=== PATIENT | female | born 1980 | race Caucasian/White ===

== ENCOUNTER 2016-09-14 14:20 | Emergency (ER) | payer OTHER ==
[~2016-09-14] VITALS: Ht 162.6 cm; Wt 93.9 kg
[~2016-09-14 14:20] MED LIST: /VITACHEW PO; ACET50TA PO; ANUS2.5C2 PR; BUSP10TA GT; BUSP10TA78 PO; COLA50CA3 PO; IBUP600T26 PO; MOM30SS PO
[2016-09-14] MEDS ORDERED: XYZA5TAB2 PO (14:36)
[2016-09-14] MEDS ORDERED: LEVA12INH INH (14:36)
[2016-09-14] MEDS ORDERED: MULTCAP11 PO (14:36)
[2016-09-14] MEDS ORDERED: IPRAINH INH (14:36)
[2016-09-14] MEDS ORDERED: ALBU83IN INH (14:36)
[2016-09-14] MEDS ORDERED: NS 1,000 ML IV ONE (14:45)
[2016-09-14] MEDS ORDERED: ONDANSETRON 4MG/2ML VIAL (J2405) IV ONE (15:00)
[2016-09-14 15:39] LABS: BASO % 0.3 % (0.0-1.0); EOS # 0.1 K/mm3 (0.0-0.50); EOS % 0.6 % (0.0-3.0); LARGE UNSTAINED CELL # 0.1 K/mm3 (0.0-0.4); LARGE UNSTAINED CELL % 1.1 % (0.0-4.0); LYMPH # 1.2 K/mm3 (1.5-4.5); LYMPH % 10.6 % (24.0-44.0); MEAN CORPUSCULAR HEMOGLOBIN 29.4 pg (27.0-33.0); MEAN CORPUSCULAR HGB CONC 33.2 g/dl (32.0-36.5); MEAN CORPUSCULAR VOLUME 88.5 fl (80.0-96.0); MONO # 0.5 K/mm3 (0.0-0.8); MONO % 4.3 % (0.0-5.0); NEUTROPHILS # 8.8 K/mm3 (1.8-7.7); NEUTROPHILS % 83.2 % (36.0-66.0); PLATELET COUNT, AUTOMATED 310 k/mm3 (150-450); RED CELL DISTRIBUTION WIDTH 12.6 % (11.5-14.5); WHITE BLOOD COUNT 10.6 K/mm3 (4.0-10.0)
[2016-09-14 16:10] LABS: ANION GAP 15 MEQ/L (8-16); BLOOD UREA NITROGEN 16 MG/DL (7-18); CARBON DIOXIDE LEVEL 16 MEQ/L (21-32); CHLORIDE LEVEL 106 MEQ/L (98-107); CREATININE FOR GFR 0.91 MG/DL (0.55-1.02); GLOMERULAR FILTRATION RATE > 60.0 (>60); GLUCOSE, FASTING 65 MG/DL (70-105); POTASSIUM SERUM 4.2 MEQ/L (3.5-5.1); SODIUM LEVEL 137 MEQ/L (136-145)
[2016-09-14] MEDS ORDERED: ZOFR4TAB3 PO (17:06)
[2016-09-14] MEDS ORDERED: DEXTROSE 50% 50 ML VIAL IV ONE (17:30)
[2016-09-14 17:38] VITALS: BP 114/62
--- NOTE | 2016-09-15 20:56 | ECGEPIP ---
Stationary ECG Study [facility] - ED Test Date: 2016-09-14 Pat Name: GUILLE GAYLE Department: Room: - Gender: F Diffusion Operator: carmine : 1980 Requested By: COLLEEN Ferrer Order Number: [id number] Reading MD: Lynnette Tejada Measurements Intervals [place] Rate: 101 P: 29 [place]: 142 QRS: 4 QRSD: 104 T: 20 QT: 343 QTc: 446 Interpretive Statements SINUS TACHYCARDIA VOLTAGE CRITERIA FOR LVH NONSPECIFIC T-WAVE ABNORMALITY NO PRIOR FOR COMPARISON Electronically Signed On 09-15-2016 20:56:25 EDT by Lynnette Tejada
== END 2016-09-14 17:43 | disposition home or self-care (01) ==
LOC: M ED 15:23
DX: E16.2 Hypoglycemia, unspecified (principal); E86.0 Dehydration; Z98.84 Bariatric surgery status; R94.31 Abnormal electrocardiogram [ECG] [EKG]; J45.909 Unspecified asthma, uncomplicated; F41.9 Anxiety disorder, unspecified; Z79.899 Other long term (current) drug therapy; Z79.01 Long term (current) use of anticoagulants
CPT/HCPCS: 80048; 84443; 85025; 93005; 93041; 94760; 96374; 99285; J2405

== ENCOUNTER 2016-09-17 08:17 | Emergency (ER) | payer OTHER ==
[~2016-09-17] VITALS: Ht 162.6 cm; Wt 95.3 kg
[~2016-09-17 08:17] MED LIST changes: +ALBU83IN INH; +IPRAINH INH; +LEVA12INH INH; +MULTCAP11 PO; +XYZA5TAB2 PO; +ZOFR4TAB3 PO
[2016-09-17] MEDS ORDERED: BACL10TA2 PO (08:40)
[2016-09-17] MEDS ORDERED: ALBU17IN INH (08:40)
[2016-09-17] MEDS ORDERED: KETO10TAB PO (08:40)
[2016-09-17] MEDS ORDERED: OMEP40CA2 PO (08:40)
[2016-09-17] MEDS ORDERED: NS 1,000 ML IV ONE (09:00)
[2016-09-17 09:33] LABS: BASO % 0.4 % (0.0-1.0); EOS # 0.4 K/mm3 (0.0-0.50); EOS % 4.1 % (0.0-3.0); LARGE UNSTAINED CELL # 0.2 K/mm3 (0.0-0.4); LARGE UNSTAINED CELL % 2.6 % (0.0-4.0); LYMPH # 1.5 K/mm3 (1.5-4.5); LYMPH % 15.4 % (24.0-44.0); MEAN CORPUSCULAR HEMOGLOBIN 29.5 pg (27.0-33.0); MEAN CORPUSCULAR HGB CONC 34.4 g/dl (32.0-36.5); MEAN CORPUSCULAR VOLUME 85.7 fl (80.0-96.0); MONO # 0.6 K/mm3 (0.0-0.8); MONO % 6.4 % (0.0-5.0); NEUTROPHILS % 71.1 % (36.0-66.0); PLATELET COUNT, AUTOMATED 315 k/mm3 (150-450); RED CELL DISTRIBUTION WIDTH 12.7 % (11.5-14.5); WHITE BLOOD COUNT 8.5 K/mm3 (4.0-10.0)
[2016-09-17 09:51] LABS: ALBUMIN 4.2 GM/DL (3.2-5.2); ALKALINE PHOSPHATASE 82 U/L (45-117); ALT/SGPT 22 U/L (12-78); ANION GAP 12 MEQ/L (8-16); AST/SGOT 13 U/L (15-37); BILIRUBIN,DIRECT 0.1 MG/DL (0.0-0.2); BILIRUBIN,TOTAL 0.9 MG/DL (0.2-1.0); BLOOD UREA NITROGEN 13 MG/DL (7-18); CALCIUM LEVEL 9.2 MG/DL (8.5-10.1); CARBON DIOXIDE LEVEL 25 MEQ/L (21-32); CHLORIDE LEVEL 104 MEQ/L (98-107); CREATININE FOR GFR 0.88 MG/DL (0.55-1.02); GLOMERULAR FILTRATION RATE > 60.0 (>60); GLUCOSE, FASTING 107 MG/DL (70-105); POTASSIUM SERUM 3.3 MEQ/L (3.5-5.1); SODIUM LEVEL 141 MEQ/L (136-145); TOTAL PROTEIN 8.4 GM/DL (6.4-8.2)
[2016-09-17] MEDS ORDERED: ONDANSETRON 4MG/2ML VIAL (J2405) IV ONE (14:45)
[2016-09-17 14:46] VITALS: BP 124/70
--- NOTE | 2016-09-17 16:45 | ECGEPIP ---
Stationary ECG Study [facility] - ED Test Date: 2016-09-17 Pat Name: GUILLE GAYLE Department: Room: - Gender: F Edge Sawyer: diaz : 1980 Requested By: COLLEEN Ferrer Order Number: [id number] Reading MD: Lynnette Tejada Measurements Intervals [place] Rate: 103 P: 36 [place]: 145 QRS: 7 QRSD: 89 T: 9 QT: 343 QTc: 449 Interpretive Statements SINUS TACHYCARDIA MINIMAL VOLTAGE CRITERIA FOR LVH, CONSIDER NORMAL VARIANT NONSPECIFIC T-WAVE ABNORMALITY ABNORMAL RHYTHM ECG SIMILAR 09/14/16 Electronically Signed On 09-17-2016 16:45:36 EDT by Lynnette Tejada
== END 2016-09-17 14:48 | disposition home or self-care (01) ==
LOC: M ED 09:17
DX: R11.0 Nausea (principal); R10.9 Unspecified abdominal pain; R19.7 Diarrhea, unspecified; J45.909 Unspecified asthma, uncomplicated; F41.9 Anxiety disorder, unspecified; G43.909 Migraine, unspecified, not intractable, without status migrainosus; Z98.84 Bariatric surgery status
CPT/HCPCS: 36415; 80048; 80076; 83690; 85025; 93005; 93041; 96374; 99284; J2405

== ENCOUNTER 2016-09-28 10:58 | Emergency (ER) | payer OTHER ==
[~2016-09-28 10:58] MED LIST changes: +ALBU17IN INH; +BACL10TA2 PO; +KETO10TAB PO; +OMEP40CA2 PO
[2016-09-28] MEDS ORDERED: ONDANSETRON 4MG/2ML VIAL (J2405) IV ONE (11:30)
[2016-09-28] MEDS ORDERED: MULTIVITAMIN -ADULT INJECTION 10 ML, THIAMINE INJection 100 MG, FOLIC ACID 1 MG in NS 1... IV ONE (11:30)
[2016-09-28 11:58] LABS: CONTROL LINE UCG INT CTR LINE PRESENT
[2016-09-28 12:18] LABS: BASO % 0.3 % (0.0-1.0); EOS # 0.5 K/mm3 (0.0-0.50); EOS % 5.5 % (0.0-3.0); LARGE UNSTAINED CELL # 0.2 K/mm3 (0.0-0.4); LARGE UNSTAINED CELL % 1.9 % (0.0-4.0); LYMPH % 21.1 % (24.0-44.0); MEAN CORPUSCULAR HEMOGLOBIN 29.1 pg (27.0-33.0); MEAN CORPUSCULAR HGB CONC 34.1 g/dl (32.0-36.5); MEAN CORPUSCULAR VOLUME 85.3 fl (80.0-96.0); MONO # 0.5 K/mm3 (0.0-0.8); NEUTROPHILS # 5.7 K/mm3 (1.8-7.7); NEUTROPHILS % 65.1 % (36.0-66.0); PLATELET COUNT, AUTOMATED 294 k/mm3 (150-450); RED CELL DISTRIBUTION WIDTH 12.8 % (11.5-14.5); WHITE BLOOD COUNT 8.8 K/mm3 (4.0-10.0)
[2016-09-28 12:41] LABS: ALBUMIN 4.2 GM/DL (3.2-5.2); ALKALINE PHOSPHATASE 88 U/L (45-117); ALT/SGPT 128 U/L (12-78); ANION GAP 14 MEQ/L (8-16); AST/SGOT 57 U/L (15-37); BILIRUBIN,DIRECT 0.4 MG/DL (0.0-0.2); BILIRUBIN,TOTAL 1.2 MG/DL (0.2-1.0); BLOOD UREA NITROGEN 9 MG/DL (7-18); CALCIUM LEVEL 8.8 MG/DL (8.5-10.1); CARBON DIOXIDE LEVEL 20 MEQ/L (21-32); CHLORIDE LEVEL 105 MEQ/L (98-107); CREATININE FOR GFR 0.86 MG/DL (0.55-1.02); GLOMERULAR FILTRATION RATE > 60.0 (>60); GLUCOSE, FASTING 86 MG/DL (70-105); POTASSIUM SERUM 3.2 MEQ/L (3.5-5.1); SODIUM LEVEL 139 MEQ/L (136-145); TOTAL PROTEIN 7.7 GM/DL (6.4-8.2)
[2016-09-28] MEDS ORDERED: METAL LOCK LOOP XX ONE (13:10)
--- NOTE | 2016-09-28 14:03 | REP ---
CT of the abdomen pelvis without IV or bowel contrast: Comparison is 10/06/2014. The visualized lung dill are unremarkable. The unenhanced hepatic parenchyma is homogeneous. There are surgical clips in the gallbladder fossa, unchanged. The pancreas is unremarkable. There are surgical clips in the upper abdomen suggestive of bariatric surgery, not present previously. The spleen, adrenals, kidneys and abdominal aorta are unremarkable. There is no bowel distension. Mesentery is unremarkable. Pelvis: There has been an appendectomy. The uterus and adnexa are unremarkable. There are a few scattered diverticula in the sigmoid colon without CT evidence of diverticulitis. There is no ascites or adenopathy. The bladder is incompletely distended and cannot be accurately assessed. Impression: No evidence of pancreatitis by CT. Cholecystectomy. Gastric surgery, possibly bariatric surgery. No bowel distension or obstruction. No ascites or adenopathy. Calcifications in the pelvis, likely phleboliths. Signed by Eligio Milan MD 09/28/2016 01:55 P
[2016-09-28 15:42] VITALS: BP 128/74
[2016-09-28] MEDS ORDERED: K-TA1TAB PO (15:43)
[2016-09-28] MEDS ORDERED: ONDANSETRON 4 MG ORAL DISINTEGRATING TAB (S0181) PO ONE (15:45)
== END 2016-09-28 15:52 | disposition home or self-care (01) ==
LOC: M ED 11:33
DX: E86.0 Dehydration (principal); R19.7 Diarrhea, unspecified; E87.6 Hypokalemia; R74.8 Abnormal levels of other serum enzymes; R93.5 Abnormal findings on diagnostic imaging of other abdominal regions, including retroperitoneum; J45.909 Unspecified asthma, uncomplicated; E66.9 Obesity, unspecified; Z79.899 Other long term (current) drug therapy; Z98.84 Bariatric surgery status; J30.81 Allergic rhinitis due to animal (cat) (dog) hair and dander; Z91.041 Radiographic dye allergy status; J30.89 Other allergic rhinitis; Z88.8 Allergy status to other drugs, medicaments and biological substances; Z91.048 Other nonmedicinal substance allergy status
CPT/HCPCS: 74176; 80048; 80076; 81001; 83690; 83735; 84703; 85025; 96374; 99282; J2405; J3411

== ENCOUNTER → 2016-10-07 | Outpatient (CLI) | payer OTHER ==
[~2016-10-07] MED LIST changes: +K-TA1TAB PO
[2016-10-07 11:22] LABS: AMYLASE 205 U/L (25-115); ANION GAP 11 MEQ/L (8-16); BLOOD UREA NITROGEN 6 MG/DL (7-18); CALCIUM LEVEL 8.7 MG/DL (8.5-10.1); CARBON DIOXIDE LEVEL 27 MEQ/L (21-32); CHLORIDE LEVEL 102 MEQ/L (98-107); CREATININE FOR GFR 0.68 MG/DL (0.55-1.02); GLOMERULAR FILTRATION RATE > 60.0 (>60); GLUCOSE, FASTING 87 MG/DL (70-105); POTASSIUM SERUM 3.3 MEQ/L (3.5-5.1); SODIUM LEVEL 140 MEQ/L (136-145)
== END ==
LOC: M LAB 10:28
DX: R79.89 Other specified abnormal findings of blood chemistry (principal)

== ENCOUNTER → 2016-10-08 | Outpatient (CLI) | payer OTHER ==
[2016-10-08 16:22] LABS: MEAN CORPUSCULAR HEMOGLOBIN 29.7 pg (27.0-33.0); MEAN CORPUSCULAR HGB CONC 34.2 g/dl (32.0-36.5); MEAN CORPUSCULAR VOLUME 86.7 fl (80.0-96.0); RED CELL DISTRIBUTION WIDTH 13.2 % (11.5-14.5); WHITE BLOOD COUNT 5.7 K/mm3 (4.0-10.0)
[2016-10-08 16:41] LABS: ALBUMIN 4.2 GM/DL (3.2-5.2); ALBUMIN/GLOBULIN RATIO 1.27 (1.00-1.93); ALKALINE PHOSPHATASE 79 U/L (45-117); ALT/SGPT 161 U/L (12-78); AMYLASE 186 U/L (25-115); ANION GAP 15 MEQ/L (8-16); AST/SGOT 86 U/L (15-37); BILIRUBIN,TOTAL 1.2 MG/DL (0.2-1.0); BLOOD UREA NITROGEN 7 MG/DL (7-18); CALCIUM LEVEL 8.9 MG/DL (8.5-10.1); CARBON DIOXIDE LEVEL 24 MEQ/L (21-32); CHLORIDE LEVEL 100 MEQ/L (98-107); CREATININE FOR GFR 0.78 MG/DL (0.55-1.02); GLOMERULAR FILTRATION RATE > 60.0 (>60); GLUCOSE, FASTING 96 MG/DL (70-105); POTASSIUM SERUM 3.1 MEQ/L (3.5-5.1); SODIUM LEVEL 139 MEQ/L (136-145); TOTAL PROTEIN 7.5 GM/DL (6.4-8.2)
== END ==
LOC: M LAB 15:28
PROVIDERS: ATTEND Physician Assistant
DX: E86.0 Dehydration (principal)

== ENCOUNTER → 2016-10-16 | Outpatient (CLI) | payer OTHER ==
[2016-10-16 20:14] LABS: MEAN CORPUSCULAR HEMOGLOBIN 30.2 pg (27.0-33.0); MEAN CORPUSCULAR HGB CONC 34.5 g/dl (32.0-36.5); MEAN CORPUSCULAR VOLUME 87.6 fl (80.0-96.0); RED CELL DISTRIBUTION WIDTH 13.2 % (11.5-14.5); WHITE BLOOD COUNT 6.2 K/mm3 (4.0-10.0)
[2016-10-16 20:28] LABS: ALBUMIN/GLOBULIN RATIO 1.25 (1.00-1.93); ALKALINE PHOSPHATASE 74 U/L (45-117); ALT/SGPT 70 U/L (12-78); ANION GAP 11 MEQ/L (8-16); AST/SGOT 26 U/L (15-37); BLOOD UREA NITROGEN 10 MG/DL (7-18); CALCIUM LEVEL 9.3 MG/DL (8.5-10.1); CARBON DIOXIDE LEVEL 30 MEQ/L (21-32); CHLORIDE LEVEL 99 MEQ/L (98-107); CREATININE FOR GFR 0.76 MG/DL (0.55-1.02); GLOMERULAR FILTRATION RATE > 60.0 (>60); GLUCOSE, FASTING 85 MG/DL (70-105); POTASSIUM SERUM 3.2 MEQ/L (3.5-5.1); SODIUM LEVEL 140 MEQ/L (136-145); TOTAL PROTEIN 7.2 GM/DL (6.4-8.2)
== END ==
LOC: M WUC 17:18
PROVIDERS: ATTEND Surgery
DX: K85.90 Acute pancreatitis without necrosis or infection, unspecified (principal)

== ENCOUNTER → 2016-11-05 | Outpatient (CLI) | payer OTHER ==
[2016-11-05 20:21] LABS: MEAN CORPUSCULAR HEMOGLOBIN 30.1 pg (27.0-33.0); MEAN CORPUSCULAR HGB CONC 34.5 g/dl (32.0-36.5); MEAN CORPUSCULAR VOLUME 87.3 fl (80.0-96.0); RED CELL DISTRIBUTION WIDTH 13.8 % (11.5-14.5); WHITE BLOOD COUNT 6.9 K/mm3 (4.0-10.0)
[2016-11-05 20:53] LABS: ALBUMIN/GLOBULIN RATIO 1.33 (1.00-1.93); ALKALINE PHOSPHATASE 65 U/L (45-117); ALT/SGPT 54 U/L (12-78); ANION GAP 14 MEQ/L (8-16); AST/SGOT 41 U/L (15-37); BILIRUBIN,TOTAL 1.5 MG/DL (0.2-1.0); BLOOD UREA NITROGEN 5 MG/DL (7-18); CARBON DIOXIDE LEVEL 24 MEQ/L (21-32); CHLORIDE LEVEL 100 MEQ/L (98-107); CREATININE FOR GFR 0.73 MG/DL (0.55-1.02); GLOMERULAR FILTRATION RATE > 60.0 (>60); GLUCOSE, FASTING 66 MG/DL (70-105); SODIUM LEVEL 138 MEQ/L (136-145)
== END ==
LOC: M LAB 19:46
PROVIDERS: ATTEND Surgery
DX: K85.90 Acute pancreatitis without necrosis or infection, unspecified (principal)

== ENCOUNTER → 2016-11-13 | Outpatient (CLI) | payer OTHER ==
[2016-11-13 16:21] LABS: MEAN CORPUSCULAR HEMOGLOBIN 29.6 pg (27.0-33.0); MEAN CORPUSCULAR HGB CONC 33.7 g/dl (32.0-36.5); MEAN CORPUSCULAR VOLUME 87.9 fl (80.0-96.0); RED CELL DISTRIBUTION WIDTH 13.9 % (11.5-14.5); WHITE BLOOD COUNT 6.9 K/mm3 (4.0-10.0)
[2016-11-13 16:31] LABS: ALBUMIN 3.9 GM/DL (3.2-5.2); ALBUMIN/GLOBULIN RATIO 1.44 (1.00-1.93); ALKALINE PHOSPHATASE 61 U/L (45-117); ALT/SGPT 32 U/L (12-78); AMYLASE 110 U/L (25-115); ANION GAP 7 MEQ/L (8-16); AST/SGOT 25 U/L (15-37); BILIRUBIN,TOTAL 0.9 MG/DL (0.2-1.0); BLOOD UREA NITROGEN 11 MG/DL (7-18); CALCIUM LEVEL 8.8 MG/DL (8.5-10.1); CARBON DIOXIDE LEVEL 32 MEQ/L (21-32); CHLORIDE LEVEL 102 MEQ/L (98-107); GLOMERULAR FILTRATION RATE > 60.0 (>60); GLUCOSE, FASTING 102 MG/DL (70-105); SODIUM LEVEL 141 MEQ/L (136-145); TOTAL PROTEIN 6.6 GM/DL (6.4-8.2)
[2016-11-13 16:59] LABS: POTASSIUM SERUM 2.9 MEQ/L (3.5-5.1)
== END ==
LOC: M LAB 15:33
PROVIDERS: ATTEND Physician Assistant
DX: E86.0 Dehydration (principal)

== ENCOUNTER → 2016-11-18 | Outpatient (CLI) | payer OTHER ==
[2016-11-18 17:59] LABS: POTASSIUM SERUM 3.5 MEQ/L (3.5-5.1)
== END ==
LOC: M WUC 11:55
PROVIDERS: ATTEND Physician Assistant
DX: E87.6 Hypokalemia (principal); R74.8 Abnormal levels of other serum enzymes

== ENCOUNTER → 2016-12-07 | Outpatient (REF) | payer OTHER ==
[2016-12-07 18:53] LABS: POTASSIUM SERUM 3.1 MEQ/L (3.5-5.1)
== END ==
LOC: M SFHCLERA 10:05
PROVIDERS: ATTEND Physician Assistant
DX: E87.6 Hypokalemia (principal); R74.8 Abnormal levels of other serum enzymes

== ENCOUNTER → 2016-12-24 | Outpatient (CLI) | payer OTHER ==
[2016-12-24 19:59] LABS: ALBUMIN 3.7 GM/DL (3.2-5.2); ALBUMIN/GLOBULIN RATIO 1.28 (1.00-1.93); ALKALINE PHOSPHATASE 51 U/L (45-117); ALT/SGPT 17 U/L (12-78); AMYLASE 45 U/L (25-115); ANION GAP 6 MEQ/L (8-16); AST/SGOT 7 U/L (15-37); BILIRUBIN,TOTAL 0.9 MG/DL (0.2-1.0); BLOOD UREA NITROGEN 7 MG/DL (7-18); CARBON DIOXIDE LEVEL 29 MEQ/L (21-32); CHLORIDE LEVEL 109 MEQ/L (98-107); CHOLESTEROL LEVEL 163 MG/DL (<200); CREATININE FOR GFR 0.62 MG/DL (0.55-1.02); GLOMERULAR FILTRATION RATE > 60.0 (>60); GLUCOSE, FASTING 97 MG/DL (70-105); SODIUM LEVEL 144 MEQ/L (136-145); TOTAL PROTEIN 6.6 GM/DL (6.4-8.2); TRIGLYCERIDES LEVEL 94 MG/DL (<150); VITAMIN B12 LEVEL 416 PG/ML (247-911)
[2016-12-24 20:04] LABS: MEAN CORPUSCULAR HEMOGLOBIN 30.9 pg (27.0-33.0); MEAN CORPUSCULAR VOLUME 90.9 fl (80.0-96.0); RED CELL DISTRIBUTION WIDTH 13.3 % (11.5-14.5); WHITE BLOOD COUNT 6.2 K/mm3 (4.0-10.0)
== END ==
LOC: M WUC 17:12
PROVIDERS: ATTEND Nurse Practitioner Women's Health
DX: E66.01 Morbid (severe) obesity due to excess calories (principal)

== ENCOUNTER → 2017-02-13 | Outpatient (REF) | payer OTHER | LOC: M SFHCLERA 17:26 | PROVIDERS: ATTEND Physician Assistant | DX: E87.6 Hypokalemia (principal) ==

== ENCOUNTER → 2017-02-17 | Outpatient (CLI) | payer OTHER | LOC: M LAB 12:00 | PROVIDERS: ATTEND Physician Assistant | DX: E87.6 Hypokalemia (principal) ==

== ENCOUNTER → 2017-03-19 | Outpatient (CLI) | payer OTHER ==
[2017-03-19 19:58] LABS: MEAN CORPUSCULAR HEMOGLOBIN 30.1 pg (27.0-33.0); MEAN CORPUSCULAR HGB CONC 33.1 g/dl (32.0-36.5); MEAN CORPUSCULAR VOLUME 90.7 fl (80.0-96.0); RED CELL DISTRIBUTION WIDTH 12.2 % (11.5-14.5); WHITE BLOOD COUNT 7.8 10^3/uL (4.0-10.0)
[2017-03-19 20:10] LABS: ANION GAP 7 MEQ/L (8-16); BLOOD UREA NITROGEN 9 MG/DL (7-18); CARBON DIOXIDE LEVEL 27 MEQ/L (21-32); CHLORIDE LEVEL 107 MEQ/L (98-107); GLOMERULAR FILTRATION RATE > 60.0 (>60); GLUCOSE, FASTING 76 MG/DL (70-105); POTASSIUM SERUM 3.7 MEQ/L (3.5-5.1); SODIUM LEVEL 141 MEQ/L (136-145)
[2017-03-19 20:11] LABS: ALBUMIN 3.8 GM/DL (3.2-5.2); ALBUMIN/GLOBULIN RATIO 1.41 (1.00-1.93); ALKALINE PHOSPHATASE 56 U/L (45-117); ALT/SGPT 13 U/L (12-78); AMYLASE 59 U/L (25-115); AST/SGOT 8 U/L (15-37); BILIRUBIN,TOTAL 0.8 MG/DL (0.2-1.0); CALCIUM LEVEL 9.1 MG/DL (8.5-10.1); CHOLESTEROL LEVEL 163 MG/DL (<200); TOTAL PROTEIN 6.5 GM/DL (6.4-8.2); TRIGLYCERIDES LEVEL 67 MG/DL (<150)
[2017-03-19 20:25] LABS: VITAMIN B12 LEVEL 481 PG/ML (247-911)
== END ==
LOC: M WUC 16:31
PROVIDERS: ATTEND Nurse Practitioner Women's Health
DX: E66.01 Morbid (severe) obesity due to excess calories (principal)

== ENCOUNTER → 2017-04-08 | Outpatient (REF) | payer OTHER | LOC: M LAB REF 17:25 | PROVIDERS: ATTEND Obstetrics & Gynecology | DX: Z01.419 Encounter for gynecological examination (general) (routine) without abnormal findings (principal); Z11.51 Encounter for screening for human papillomavirus (HPV) ==

== ENCOUNTER 2017-04-22 08:30 | Emergency (ER) | payer OTHER ==
[~2017-04-22] VITALS: Ht 162.6 cm; Wt 63.2 kg
[2017-04-22 09:41] LABS: BASO % 0.2 % (0.0-1.0); IMMATURE GRANULOCYTE % 0.2 % (0-0); LYMPH # 0.6 10^3/uL (1.5-4.5); LYMPH % 9.4 % (24.0-44.0); MEAN CORPUSCULAR HEMOGLOBIN 30.1 pg (27.0-33.0); MEAN CORPUSCULAR HGB CONC 33.7 g/dl (32.0-36.5); MEAN CORPUSCULAR VOLUME 89.3 fl (80.0-96.0); MONO # 0.2 10^3/uL (0.0-0.8); MONO % 2.4 % (0.0-5.0); NEUTROPHILS # 5.4 10^3/uL (1.8-7.7); NEUTROPHILS % 87.8 % (36.0-66.0); PLATELET COUNT, AUTOMATED 248 10^3/uL (150-450); WHITE BLOOD COUNT 6.1 10^3/uL (4.0-10.0)
[2017-04-22 10:59] LABS: ALBUMIN 3.9 GM/DL (3.2-5.2); ALBUMIN/GLOBULIN RATIO 1.08 (1.00-1.93); ALKALINE PHOSPHATASE 54 U/L (45-117); ALT/SGPT 33 U/L (12-78); ANION GAP 9 MEQ/L (8-16); AST/SGOT 22 U/L (7-37); BILIRUBIN,TOTAL 1.1 MG/DL (0.2-1.0); BLOOD UREA NITROGEN 10 MG/DL (7-18); CALCIUM LEVEL 8.7 MG/DL (8.5-10.1); CARBON DIOXIDE LEVEL 26 MEQ/L (21-32); CHLORIDE LEVEL 108 MEQ/L (98-107); CREATININE FOR GFR 0.73 MG/DL (0.55-1.02); GLOMERULAR FILTRATION RATE > 60.0 (>60); GLUCOSE, FASTING 89 MG/DL (70-105); POTASSIUM SERUM 3.1 MEQ/L (3.5-5.1); SODIUM LEVEL 143 MEQ/L (136-145); TOTAL PROTEIN 7.5 GM/DL (6.4-8.2)
[2017-04-22] MEDS ORDERED: KCL 10MEQ IN 100ML SWI (KRUN) 10 MEQ in APPROPRIATE DILUENT 1 EA IV ONE ×4 (11:30→14:30)
[2017-04-22] MEDS ORDERED: NS 1,000 ML IV ONE ×2 (11:30→13:30)
[2017-04-22] MEDS ORDERED: POTASSIUM CHLORIDE 10 MEQ SR TABLET PO ONE (13:15)
[2017-04-22] MEDS ORDERED: POTASSIUM CHL PWD 20 MEQ PACKET PO ONE (13:30)
[2017-04-22 16:11] VITALS: BP 140/92
--- NOTE | 2017-04-23 14:09 | ECGEPIP ---
Stationary ECG Study [facility] - ED Test Date: 2017-04-22 Pat Name: GUILLE GAYLE Department: Room: - Gender: F Life Sciences Instructor: armando : 1980 Requested By: Ivanna Bobo Order Number: [id number] Reading MD: Lynnette Tejada Measurements Intervals [place] Rate: 103 P: 49 DC: 165 QRS: 20 QRSD: 87 T: 17 QT: 328 QTc: 429 Interpretive Statements SINUS TACHYCARDIA LOW QRS VOLTAGE IN PRECORDIAL LEADS NONSPECIFIC T-WAVE ABNORMALITY ABNORMAL RHYTHM ECG SIMILAR 09/17/16 Electronically Signed On 04-23-2017 14:09:22 EST by Lynnette Tejada
--- NOTE | 2017-04-23 14:11 | ECGEPIP ---
Stationary ECG Study [facility] - ED Test Date: 2017-04-22 Pat Name: GUILLE GAYLE Department: Room: - Gender: F Sales Support Coordinator: : 1980 Requested By: Ivanna Bobo Order Number: [id number] Reading MD: Lynnette Tejada Measurements Intervals [place] Rate: 109 P: 36 [place]: 166 QRS: 19 QRSD: 88 T: 13 QT: 313 QTc: 422 Interpretive Statements SINUS TACHYCARDIA NONSPECIFIC T-WAVE ABNORMALITY ABNORMAL RHYTHM ECG SIMILAR 04/22/17 Electronically Signed On 04-23-2017 14:11:26 EST by Lynnette Tejada
== END 2017-04-22 16:14 | disposition home or self-care (01) ==
LOC: M ED 08:30
DX: E16.2 Hypoglycemia, unspecified (principal); K52.9 Noninfective gastroenteritis and colitis, unspecified; R94.31 Abnormal electrocardiogram [ECG] [EKG]; J45.909 Unspecified asthma, uncomplicated; E87.6 Hypokalemia; Z79.899 Other long term (current) drug therapy; Z88.8 Allergy status to other drugs, medicaments and biological substances; Z91.041 Radiographic dye allergy status; J30.81 Allergic rhinitis due to animal (cat) (dog) hair and dander; J30.89 Other allergic rhinitis; Z98.84 Bariatric surgery status

== ENCOUNTER → 2017-04-23 | Outpatient (REF) | payer OTHER ==
[~2017-04-23] MED LIST changes: +METR1TAB66 PO; +SEASTAB PO
[2017-04-23 16:59] LABS: ANION GAP 6 MEQ/L (8-16); BLOOD UREA NITROGEN 5 MG/DL (7-18); CALCIUM LEVEL 8.5 MG/DL (8.5-10.1); CARBON DIOXIDE LEVEL 29 MEQ/L (21-32); CHLORIDE LEVEL 108 MEQ/L (98-107); CREATININE FOR GFR 0.62 MG/DL (0.55-1.02); GLOMERULAR FILTRATION RATE > 60.0 (>60); GLUCOSE, FASTING 87 MG/DL (70-105); POTASSIUM SERUM 3.3 MEQ/L (3.5-5.1); SODIUM LEVEL 143 MEQ/L (136-145)
== END ==
LOC: M SFHCLERA 13:26
PROVIDERS: ATTEND Family Medicine
DX: R19.7 Diarrhea, unspecified (principal)

== ENCOUNTER 2017-04-24 09:32 | Emergency (ER) | payer OTHER ==
[~2017-04-24] VITALS: Ht 162.6 cm; Wt 65.0 kg
[~2017-04-24 09:32] MED LIST changes: -METR1TAB66 PO; -SEASTAB PO
[2017-04-24] MEDS ORDERED: SEASTAB PO (09:41)
[2017-04-24] MEDS ORDERED: NS 500 ML IV ONE (10:30)
[2017-04-24 10:54] LABS: BASO % 0.3 % (0.0-1.0); EOS # 0.1 10^3/uL (0.0-0.50); EOS % 1.7 % (0.0-3.0); IMMATURE GRANULOCYTE % 0.3 % (0-0); LYMPH # 1.4 10^3/uL (1.5-4.5); LYMPH % 39.1 % (24.0-44.0); MEAN CORPUSCULAR HEMOGLOBIN 30.1 pg (27.0-33.0); MEAN CORPUSCULAR HGB CONC 34.2 g/dl (32.0-36.5); MONO # 0.3 10^3/uL (0.0-0.8); MONO % 8.5 % (0.0-5.0); NEUTROPHILS # 1.8 10^3/uL (1.8-7.7); NEUTROPHILS % 50.1 % (36.0-66.0); PLATELET COUNT, AUTOMATED 221 10^3/uL (150-450); WHITE BLOOD COUNT 3.6 10^3/uL (4.0-10.0)
[2017-04-24 11:16] LABS: ALBUMIN 3.7 GM/DL (3.2-5.2); ALBUMIN/GLOBULIN RATIO 1.16 (1.00-1.93); ALKALINE PHOSPHATASE 55 U/L (45-117); ALT/SGPT 68 U/L (12-78); ANION GAP 7 MEQ/L (8-16); AST/SGOT 52 U/L (7-37); BILIRUBIN,DIRECT 0.3 MG/DL (0.0-0.2); BILIRUBIN,TOTAL 0.9 MG/DL (0.2-1.0); BLOOD UREA NITROGEN 5 MG/DL (7-18); CALCIUM LEVEL 8.9 MG/DL (8.5-10.1); CARBON DIOXIDE LEVEL 27 MEQ/L (21-32); CHLORIDE LEVEL 107 MEQ/L (98-107); CREATININE FOR GFR 0.65 MG/DL (0.55-1.02); GLOMERULAR FILTRATION RATE > 60.0 (>60); GLUCOSE, FASTING 75 MG/DL (70-105); SODIUM LEVEL 141 MEQ/L (136-145); TOTAL PROTEIN 6.9 GM/DL (6.4-8.2)
[2017-04-24 11:20] LABS: CONTROL LINE HCG INT CTR LINE PRESENT
[2017-04-24] MEDS ORDERED: KCL 20MEQ IN 100ML SWI (KRUN) 20 MEQ in APPROPRIATE DILUENT 1 EA IV ONE ×2 (11:45)
[2017-04-24] MEDS ORDERED: KCL 10MEQ IN 100ML SWI (KRUN) 10 MEQ in APPROPRIATE DILUENT 1 EA IV ONE ×2 (12:15)
--- NOTE | 2017-04-24 13:01 | REP ---
CT ABDOMEN AND PELVIS WITHOUT CONTRAST: CT abdomen and pelvis is performed without oral or IV contrast. Sagittal and coronal reconstruction images are performed. No infiltrate is seen in the visualized lung bases. The liver, spleen, adrenals, pancreas, and kidneys are grossly unremarkable. No renal or ureteral calculus is seen and there is no hydroureteronephrosis. There is no abdominal aortic aneurysm. I see no adenopathy or free air. There is mild free fluid in the pelvis. There appears to be mild diffuse thickening of the hepatic flexure of the colon with mild surrounding streaky inflammatory change in the pericolonic fat. These findings suggest mild degree of colitis in this region. No other definite bowel inflammation is seen. No pelvic mass is seen. Urinary bladder is not well distended and not well evaluated. Patient has had a prior cholecystectomy. I do not see evidence of biliary dilatation. IMPRESSION: Findings compatible with colitis involving the hepatic flexure of the colon. Mild free fluid in the pelvis. Signed by Eligio Sainz MD 04/24/2017 04:54 P
[2017-04-24] MEDS ORDERED: METR1TAB66 PO (13:06)
[2017-04-24] MEDS ORDERED: POTASSIUM CHLORIDE 10 MEQ SR TABLET PO ONE (13:15)
[2017-04-24] MEDS ORDERED: POTASSIUM CHL PWD 20 MEQ PACKET PO ONE (13:30)
[2017-04-24 13:41] VITALS: BP 122/78
== END 2017-04-24 13:54 | disposition home or self-care (01) ==
LOC: M ED 09:32
DX: A04.72 Enterocolitis due to Clostridium difficile, not specified as recurrent (principal); E87.6 Hypokalemia; J45.909 Unspecified asthma, uncomplicated; Z79.899 Other long term (current) drug therapy; Z88.8 Allergy status to other drugs, medicaments and biological substances; J30.81 Allergic rhinitis due to animal (cat) (dog) hair and dander; Z88.5 Allergy status to narcotic agent; Z91.041 Radiographic dye allergy status; L23.1 Allergic contact dermatitis due to adhesives; Z98.84 Bariatric surgery status; Z87.19 Personal history of other diseases of the digestive system; Z84.1 Family history of disorders of kidney and ureter; Z83.79 Family history of other diseases of the digestive system

== ENCOUNTER → 2017-05-05 | Outpatient (CLI) | payer OTHER ==
[~2017-05-05] MED LIST changes: +METR1TAB66 PO; +SEASTAB PO
--- NOTE | 2017-05-05 11:40 | REP ---
ABDOMEN, FLAT AND UPRIGHT; PA CHEST, FOUR VIEWS: HISTORY: Colitis. COMPARISON: 12/29/2012. Air is present in small and large intestine. There are no air fluid levels or dilated loops of intestine. There is no pneumoperitoneum. Surgical clips are present in the upper abdomen. The lungs are clear. IMPRESSION: Nonspecific bowel gas pattern. Signed by [place] MD 05/05/2017 12:01 P
== END ==
LOC: M LRY 09:47
PROVIDERS: ATTEND Family Medicine
DX: A04.72 Enterocolitis due to Clostridium difficile, not specified as recurrent (principal)

== ENCOUNTER → 2017-05-05 | Outpatient (CLI) | payer OTHER ==
[2017-05-05 12:16] LABS: BASO % 0.4 % (0.0-1.0); EOS # 0.1 10^3/uL (0.0-0.50); EOS % 0.8 % (0.0-3.0); IMMATURE GRANULOCYTE % 0.4 % (0-0); LYMPH # 1.4 10^3/uL (1.5-4.5); LYMPH % 16.7 % (24.0-44.0); MEAN CORPUSCULAR HEMOGLOBIN 29.9 pg (27.0-33.0); MEAN CORPUSCULAR HGB CONC 33.6 g/dl (32.0-36.5); MEAN CORPUSCULAR VOLUME 89.1 fl (80.0-96.0); MONO # 0.4 10^3/uL (0.0-0.8); NEUTROPHILS # 6.6 10^3/uL (1.8-7.7); NEUTROPHILS % 76.7 % (36.0-66.0); PLATELET COUNT, AUTOMATED 271 10^3/uL (150-450); RED CELL DISTRIBUTION WIDTH 12.6 % (11.5-14.5); RETIC HEMOGLOBIN EQUIVALENT 35.6 pg (24-36); RETICULOCYTE % 0.8 % (0.5-1.5); WHITE BLOOD COUNT 8.6 10^3/uL (4.0-10.0)
[2017-05-05 12:31] LABS: ALBUMIN 3.9 GM/DL (3.2-5.2); ALBUMIN/GLOBULIN RATIO 1.39 (1.00-1.93); ALKALINE PHOSPHATASE 50 U/L (45-117); ALT/SGPT 38 U/L (12-78); ANION GAP 9 MEQ/L (8-16); AST/SGOT 16 U/L (7-37); BILIRUBIN,TOTAL 1.1 MG/DL (0.2-1.0); BLOOD UREA NITROGEN 10 MG/DL (7-18); CARBON DIOXIDE LEVEL 28 MEQ/L (21-32); CHLORIDE LEVEL 107 MEQ/L (98-107); CREATININE FOR GFR 0.62 MG/DL (0.55-1.02); GLOMERULAR FILTRATION RATE > 60.0 (>60); GLUCOSE, FASTING 86 MG/DL (70-105); POTASSIUM SERUM 3.5 MEQ/L (3.5-5.1); SODIUM LEVEL 144 MEQ/L (136-145); TOTAL PROTEIN 6.7 GM/DL (6.4-8.2)
[2017-05-05 12:33] LABS: REASON FOR REVIEW COMPREHENSIVE REVIEW
== END ==
LOC: M LAB 11:06
PROVIDERS: ATTEND Family Medicine
DX: A04.72 Enterocolitis due to Clostridium difficile, not specified as recurrent (principal)

== ENCOUNTER → 2017-05-05 | Outpatient (REF) | payer OTHER | LOC: M SFHCLERA 09:40 | PROVIDERS: ATTEND Family Medicine | DX: A04.72 Enterocolitis due to Clostridium difficile, not specified as recurrent (principal) ==

== ENCOUNTER → 2017-05-13 | Outpatient (CLI) | payer OTHER ==
--- NOTE | 2017-05-14 06:07 | REP ---
CHEST X-RAY: CLINICAL: Asthma with acute exacerbation and dyspnea. TECHNIQUE: PA and lateral. COMPARISON: 10/17/2016. FINDINGS: Mediastinum and cardiac silhouette are normal. Coarsened lung markings consistent with chronic reactive airway disease/asthma. No focal consolidation, effusion or pneumothorax. Skeletal structures are intact. IMPRESSION: Chronic reactive airway disease/asthma. No acute consolidation identified. Signed by Tejas Buckner MD 05/19/2017 12:06 A
== END ==
LOC: M LRY 15:50
PROVIDERS: ATTEND Family Medicine
DX: J45.41 Moderate persistent asthma with (acute) exacerbation (principal)

== ENCOUNTER → 2017-05-16 | Outpatient (CLI) | payer OTHER | LOC: M LAB 13:09 | PROVIDERS: ATTEND Physician Assistant | DX: E87.6 Hypokalemia (principal) ==

== ENCOUNTER 2017-07-23 21:59 | Emergency (ER) | payer OTHER ==
[2017-07-23 23:08] LABS: BASO # 0.1 10^3/uL (0.0-0.2); BASO % 0.5 % (0.0-1.0); EOS # 0.1 10^3/uL (0.0-0.50); EOS % 1.5 % (0.0-3.0); HEMOGLOBIN 11.5 g/dl (12.0-16.0); IMMATURE GRANULOCYTE % 0.1 % (0-3.0); MEAN CORPUSCULAR HEMOGLOBIN 30.1 pg (27.0-33.0); MEAN CORPUSCULAR HGB CONC 33.8 g/dl (32.0-36.5); MONO # 0.4 10^3/uL (0.0-0.8); MONO % 4.8 % (0.0-5.0); NEUTROPHILS # 4.6 10^3/uL (1.8-7.7); NEUTROPHILS % 50.1 % (36.0-66.0); PLATELET COUNT, AUTOMATED 225 10^3/uL (150-450); RED BLOOD COUNT 3.82 10^6/uL (4.00-5.40); RED CELL DISTRIBUTION WIDTH 12.5 % (11.5-14.5); WHITE BLOOD COUNT 9.3 10^3/uL (4.0-10.0)
[2017-07-23 23:26] LABS: CONTROL LINE HCG INT CTR LINE PRESENT; HCG, SERUM QUALITATIVE NEGATIVE (NEGATIVE)
[2017-07-23 23:35] LABS: ANION GAP 5 MEQ/L (8-16); BLOOD UREA NITROGEN 15 MG/DL (7-18); CALCIUM LEVEL 8.9 MG/DL (8.5-10.1); CARBON DIOXIDE LEVEL 29 MEQ/L (21-32); CHLORIDE LEVEL 106 MEQ/L (98-107); CPK CREATINE PHOSPHOKINASE 63 U/L (26-192); CREATININE FOR GFR 0.72 MG/DL (0.55-1.30); GLOMERULAR FILTRATION RATE > 60.0 (>60); GLUCOSE, FASTING 85 MG/DL (70-100); MB/CK RELATIVE INDEX 1.58 (< OR =4); POTASSIUM SERUM 3.4 MEQ/L (3.5-5.1); SODIUM LEVEL 140 MEQ/L (136-145); TROPONIN I < 0.02 NG/ML (< 0.10)
[2017-07-23] MEDS: POTASSIUM CHLORIDE 10 MEQ SR TABLET PO (23:40)
[2017-07-24 00:34] LABS: ABG BASE EXCESS -0.2 (-2.0-2.0); ABG HCO3 23.9 MEQ/L (22.0-26.0); ABG O2 SATURATION 97.2 % (95.0-99.0); ABG PARTIAL PRESSURE CO2 37.1 mmHg (35.0-45.0); ABG PARTIAL PRESSURE O2 91.7 mmHg (75.0-100.0); ABG STANDARD HCO3 24.3 MEQ/L (22.0-26.0); ABG pH (ARTERIAL) 7.426 UNITS (7.350-7.450)
== END 2017-07-24 01:34 | disposition home or self-care (01) ==
LOC: M ED 21:59
DX: R07.89 Other chest pain (principal); J45.909 Unspecified asthma, uncomplicated; K21.9 Gastro-esophageal reflux disease without esophagitis; F41.9 Anxiety disorder, unspecified; Z79.51 Long term (current) use of inhaled steroids; Z79.899 Other long term (current) drug therapy; Z88.5 Allergy status to narcotic agent; Z88.8 Allergy status to other drugs, medicaments and biological substances; Z91.048 Other nonmedicinal substance allergy status; Z91.041 Radiographic dye allergy status; Z98.84 Bariatric surgery status
CPT/HCPCS: 71046

== ENCOUNTER → 2017-08-12 | Outpatient (REF) | payer OTHER | LOC: M SFHCLERA 07:53 | DX: R74.8 Abnormal levels of other serum enzymes (principal) ==

== ENCOUNTER → 2017-09-04 | Outpatient (REF) | payer OTHER ==
[2017-09-04 18:42] LABS: LIPASE 120 U/L (73-393)
[2017-09-04 18:42] LABS: POTASSIUM SERUM 3.7 MEQ/L (3.5-5.1)
== END ==
LOC: M LABDRAW1 17:32
DX: R74.8 Abnormal levels of other serum enzymes (principal)

== ENCOUNTER → 2017-12-07 | Outpatient (CLI) | payer OTHER | LOC: M LRY 16:39 | DX: M79.601 Pain in right arm (principal) | CPT/HCPCS: 73090 ==

== ENCOUNTER 2017-12-11 11:44 | Emergency (ER) | payer OTHER ==
[2017-12-11 13:06] LABS: BASO % 0.5 % (0.0-1.0); EOS % 0.7 % (0.0-3.0); HEMATOCRIT 40.8 % (36.0-47.0); HEMOGLOBIN 13.8 g/dl (12.0-15.5); IMMATURE GRANULOCYTE % 0.4 % (0-3.0); LYMPH # 2.4 10^3/uL (1.5-4.5); LYMPH % 42.7 % (24.0-44.0); MEAN CORPUSCULAR HEMOGLOBIN 30.3 pg (27.0-33.0); MEAN CORPUSCULAR HGB CONC 33.8 g/dl (32.0-36.5); MEAN CORPUSCULAR VOLUME 89.5 fl (80.0-96.0); MONO # 0.4 10^3/uL (0.0-0.8); MONO % 6.4 % (0.0-5.0); NEUTROPHILS # 2.8 10^3/uL (1.8-7.7); NEUTROPHILS % 49.3 % (36.0-66.0); PLATELET COUNT, AUTOMATED 280 10^3/uL (150-450); RED BLOOD COUNT 4.56 10^6/uL (4.00-5.40); WHITE BLOOD COUNT 5.7 10^3/uL (4.0-10.0)
[2017-12-11] MEDS: diphenhydrAMINE INJ 50MG/ML VIAL (J1200) IV (13:08)
[2017-12-11] MEDS: NS 1,000 ML IV ×2 (13:08→15:07)
[2017-12-11] MEDS: ASPIRIN 81 MG CHEW TABLET PO ×2 (13:08→13:15)
[2017-12-11] MEDS: KETOROLAC 30 MG/ML VIAL (J1885) IV (13:09)
[2017-12-11 13:15] LABS: INR 1.02; PROTHROMBIN TIME 13.5 SECONDS (12.1-14.4)
[2017-12-11 13:24] LABS: ANION GAP 8 MEQ/L (8-16); BLOOD UREA NITROGEN 7 MG/DL (7-18); CALCIUM LEVEL 8.8 MG/DL (8.5-10.1); CARBON DIOXIDE LEVEL 29 MEQ/L (21-32); CHLORIDE LEVEL 107 MEQ/L (98-107); CPK CREATINE PHOSPHOKINASE 43 U/L (26-192); CREATININE FOR GFR 0.77 MG/DL (0.55-1.30); FREE THYROXINE INDEX 4.7 % (1.3-4.8); GLOMERULAR FILTRATION RATE > 60.0 (>60); GLUCOSE, FASTING 92 MG/DL (70-100); POTASSIUM SERUM 3.5 MEQ/L (3.5-5.1); SODIUM LEVEL 144 MEQ/L (136-145); T UPTAKE 30 % (30-39); THYROXINE (T4) 15.8 UG/DL (4.5-12.0); TROPONIN I < 0.02 NG/ML (< 0.10)
[2017-12-11 13:29] LABS: CK-MB VALUE MASS < 1.0 NG/ML (<3.6); MB/CK RELATIVE INDEX 2.32 (< OR =4)
[2017-12-11 14:37] LABS: CONTROL LINE HCG INT CTR LINE PRESENT; HCG, SERUM QUALITATIVE NEGATIVE (NEGATIVE)
[2017-12-11] MEDS: LORazepam 2 MG/ML VIAL (J2060) IV (15:08)
== END 2017-12-11 16:36 | disposition home or self-care (01) ==
LOC: M ED 11:44
DX: G43.909 Migraine, unspecified, not intractable, without status migrainosus (principal); R00.2 Palpitations; R06.02 Shortness of breath; J45.909 Unspecified asthma, uncomplicated; Z79.899 Other long term (current) drug therapy; Z79.51 Long term (current) use of inhaled steroids; Z88.5 Allergy status to narcotic agent; Z88.8 Allergy status to other drugs, medicaments and biological substances; Z91.048 Other nonmedicinal substance allergy status
CPT/HCPCS: J1200

== ENCOUNTER 2018-01-06 17:28 | Emergency (ER) | payer OTHER ==
[2018-01-06 19:12] LABS: BASO % 0.5 % (0.0-1.0); EOS # 0.1 10^3/uL (0.0-0.50); EOS % 1.2 % (0.0-3.0); HEMATOCRIT 36.4 % (36.0-47.0); HEMOGLOBIN 12.3 g/dl (12.0-15.5); IMMATURE GRANULOCYTE % 0.3 % (0-3.0); LYMPH # 2.6 10^3/uL (1.5-4.5); LYMPH % 39.6 % (24.0-44.0); MEAN CORPUSCULAR HEMOGLOBIN 30.5 pg (27.0-33.0); MEAN CORPUSCULAR HGB CONC 33.8 g/dl (32.0-36.5); MEAN CORPUSCULAR VOLUME 90.3 fl (80.0-96.0); MONO # 0.3 10^3/uL (0.0-0.8); MONO % 5.2 % (0.0-5.0); NEUTROPHILS # 3.5 10^3/uL (1.8-7.7); NEUTROPHILS % 53.2 % (36.0-66.0); PLATELET COUNT, AUTOMATED 224 10^3/uL (150-450); RED BLOOD COUNT 4.03 10^6/uL (4.00-5.40); RED CELL DISTRIBUTION WIDTH 11.9 % (11.5-14.5); WHITE BLOOD COUNT 6.5 10^3/uL (4.0-10.0)
[2018-01-06 19:20] LABS: KETONE, URINE AUTO RFX NEGATIVE (NEGATIVE); LEUKOCYTE ESTERASE UR AUTO RFX NEGATIVE (NEGATIVE); MUCUS, URINE RFX SMALL (NEGATIVE); NITRITE, URINE AUTO RFX NEGATIVE (NEGATIVE); RBC, URINE AUTO RFX 1 /HPF (0-3); SPECIFIC GRAVITY UR AUTO RFX 1.024 (1.002-1.035); SQUAM EPITHELIAL CELL UR AURFX 0 /HPF (0-6); WBC, URINE AUTO RFX 1 /HPF (0-3)
[2018-01-06 19:33] LABS: CONTROL LINE HCG INT CTR LINE PRESENT; HCG, SERUM QUALITATIVE NEGATIVE (NEGATIVE)
[2018-01-06 19:40] LABS: ALBUMIN 3.9 GM/DL (3.2-5.2); ALBUMIN/GLOBULIN RATIO 1.34 (1.00-1.93); ALKALINE PHOSPHATASE 53 U/L (45-117); ALT/SGPT 18 U/L (12-78); ANION GAP 6 MEQ/L (8-16); AST/SGOT 11 U/L (7-37); BILIRUBIN,DIRECT 0.3 MG/DL (0.0-0.2); BILIRUBIN,TOTAL 1.3 MG/DL (0.2-1.0); BLOOD UREA NITROGEN 10 MG/DL (7-18); CALCIUM LEVEL 8.5 MG/DL (8.5-10.1); CARBON DIOXIDE LEVEL 30 MEQ/L (21-32); CHLORIDE LEVEL 109 MEQ/L (98-107); GLOMERULAR FILTRATION RATE > 60.0 (>60); GLUCOSE, FASTING 114 MG/DL (70-100); LIPASE 119 U/L (73-393); POTASSIUM SERUM 3.6 MEQ/L (3.5-5.1); SODIUM LEVEL 145 MEQ/L (136-145); TOTAL PROTEIN 6.8 GM/DL (6.4-8.2)
[2018-01-07 12:58] LABS: HEPATITIS B SURFACE ANTIGEN NEGATIVE (NEGATIVE)
[2018-01-07 13:25] LABS: HEPATITIS B CORE ANTIBODY IGM NEGATIVE (NEGATIVE)
[2018-01-07 13:25] LABS: HEPATITIS C VIRUS ABY INDEX 0.1 INDEX (<0.8)
[2018-01-07 13:28] LABS: HEPATITIS A ANTIBODY IGM NEGATIVE (NEGATIVE)
== END 2018-01-06 20:38 | disposition home or self-care (01) ==
LOC: M ED 17:28
DX: R10.2 Pelvic and perineal pain (principal); W46.0XXA Contact with hypodermic needle, initial encounter; Y92.89 Other specified places as the place of occurrence of the external cause; J45.909 Unspecified asthma, uncomplicated; K21.9 Gastro-esophageal reflux disease without esophagitis; F41.9 Anxiety disorder, unspecified; Z79.899 Other long term (current) drug therapy; Z88.5 Allergy status to narcotic agent; Z88.8 Allergy status to other drugs, medicaments and biological substances; Z91.041 Radiographic dye allergy status; Z91.048 Other nonmedicinal substance allergy status
CPT/HCPCS: 72170

== ENCOUNTER 2018-01-26 18:53 | Inpatient (IN) | payer OTHER ==
[2018-01-26 20:06] LABS: HEMATOCRIT 32.9 % (36.0-47.0); HEMOGLOBIN 11.3 g/dl (12.0-15.5); MEAN CORPUSCULAR HEMOGLOBIN 30.2 pg (27.0-33.0); MEAN CORPUSCULAR HGB CONC 34.3 g/dl (32.0-36.5); PLATELET COUNT, AUTOMATED 254 10^3/uL (150-450); RED BLOOD COUNT 3.74 10^6/uL (4.00-5.40); RED CELL DISTRIBUTION WIDTH 12.2 % (11.5-14.5); WHITE BLOOD COUNT 6.9 10^3/uL (4.0-10.0)
[2018-01-26 20:33] LABS: AMPHETAMINES LEVEL URINE NEGATIVE (NEGATIVE); BARBITURATES URINE NEGATIVE (NEGATIVE); BENZODIAZEPINES URINE POSITIVE (NEGATIVE); CANNABINOIDS URINE NEGATIVE (NEGATIVE); COCAINE METABOLITE URINE NEGATIVE (NEGATIVE); METHADONE URINE NEGATIVE (NEGATIVE); OPIATES URINE NEGATIVE (NEGATIVE); PHENCYCLIDINE URINE NEGATIVE (NEGATIVE)
[2018-01-26 20:34] LABS: CONTROL LINE HCG INT CTR LINE PRESENT; HCG, SERUM QUALITATIVE NEGATIVE (NEGATIVE)
[2018-01-26 20:39] LABS: ALKALINE PHOSPHATASE 50 U/L (45-117); ALT/SGPT 21 U/L (12-78); ANION GAP 7 MEQ/L (8-16); AST/SGOT 10 U/L (7-37); BLOOD UREA NITROGEN 11 MG/DL (7-18); CALCIUM LEVEL 8.1 MG/DL (8.5-10.1); CARBON DIOXIDE LEVEL 30 MEQ/L (21-32); CHLORIDE LEVEL 108 MEQ/L (98-107); CREATININE FOR GFR 0.73 MG/DL (0.55-1.30); GLOMERULAR FILTRATION RATE > 60.0 (>60); GLUCOSE, FASTING 83 MG/DL (70-100); POTASSIUM SERUM 3.6 MEQ/L (3.5-5.1); SODIUM LEVEL 145 MEQ/L (136-145)
[2018-01-26 20:40] LABS: ACETAMINOPHEN LEVEL < 2.0 UG/ML (10.0-30.0); ALBUMIN 3.5 GM/DL (3.2-5.2); ALBUMIN/GLOBULIN RATIO 1.25 (1.00-1.93); BILIRUBIN,DIRECT 0.2 MG/DL (0.0-0.2); ETHYL ALCOHOL (ETHANOL) < 0.003 % (0.000-0.010); SALICYLATE LEVEL < 1.7 MG/DL (5.0-30.0); TOTAL PROTEIN 6.3 GM/DL (6.4-8.2)
[2018-01-26] MEDS ORDERED: NS 1,000 ML IV (20:45)
[2018-01-26] MEDS ORDERED: NICOTINE 21MG/24HR 1 EA TRANSDERMAL TD (21:30)
[2018-01-26] MEDS: ACETAMINOPHEN TAB 650MG DOSE (2X325MG) PO (23:59)
[2018-01-27] MEDS: traZODone 50 MG TAB PO (00:05)
[2018-01-27] MEDS ORDERED: IPRATROPIUM 0.02% SOLN 0.5MG/2.5 ML NEB INH (09:45)
[2018-01-27] MEDS ORDERED: ALBUTEROL 90 MCG/ACT 8GM HFA INHALER INH (09:45)
[2018-01-27] MEDS ORDERED: tiZANidine 4 MG TAB PO (09:45)
[2018-01-27] MEDS ORDERED: ONDANSETRON 4 MG ORAL DISINTEGRATING TAB (Q0162 PER 1MG) PO (09:45)
[2018-01-27] MEDS ORDERED: LEVALBUTEROL 1.25 MG/0.5 ML CONCENTRATE NEB INH (09:45)
[2018-01-27] MEDS ORDERED: ALPRAZolam 0.25 MG TAB PO (10:45)
[2018-01-27] MEDS: DEXILANT 60 MG PO (12:27)
[2018-01-27] MEDS ORDERED: PILL CRUSHER/CUTTER 1 EACH XX (14:00)
[2018-01-27] MEDS: VENLAFAXINE 25 MG TAB PO (14:11)
[2018-01-27] MEDS: ALPRAZolam 0.5 MG TAB PO (21:50)
[2018-01-28 07:25] LABS: HEMATOCRIT 33.1 % (36.0-47.0); HEMOGLOBIN 11.4 g/dl (12.0-15.5); MEAN CORPUSCULAR HEMOGLOBIN 30.6 pg (27.0-33.0); MEAN CORPUSCULAR HGB CONC 34.4 g/dl (32.0-36.5); MEAN CORPUSCULAR VOLUME 88.7 fl (80.0-96.0); PLATELET COUNT, AUTOMATED 215 10^3/uL (150-450); RED BLOOD COUNT 3.73 10^6/uL (4.00-5.40); RED CELL DISTRIBUTION WIDTH 12.1 % (11.5-14.5); WHITE BLOOD COUNT 5.2 10^3/uL (4.0-10.0)
[2018-01-28 08:05] LABS: FERRITIN 10 NG/ML (8-252); IRON (FE) 69 UG/DL (50-170); PERCENT SATURATION 21.6 % (13.2-45.0); TOTAL IRON BINDING CAPACITY 319 UG/DL (250-450)
[2018-01-28] MEDS: VENLAFAXINE 25 MG TAB PO ×2 (08:35→13:30)
[2018-01-28] MEDS: DEXILANT 60 MG PO (08:36)
[2018-01-28 08:40] LABS: VITAMIN B12 LEVEL 312 PG/ML (247-911)
[2018-01-28 08:41] LABS: FOLATE 14.5 NG/ML (>5.4)
[2018-01-28] MEDS ORDERED: VENLAFAXINE **XR** 37.5 MG CAPSULE PO (11:00)
[2018-01-28] MEDS ORDERED: traZODone 100 MG TAB PO (14:00)
[2018-01-28] MEDS: ALPRAZolam 0.5 MG TAB PO (21:52)
[2018-01-29] MEDS: VENLAFAXINE 25 MG TAB PO ×2 (08:31→12:26)
[2018-01-29 09:07] LABS: ANION GAP 7 MEQ/L (8-16); BLOOD UREA NITROGEN 12 MG/DL (7-18); CALCIUM LEVEL 8.9 MG/DL (8.5-10.1); CARBON DIOXIDE LEVEL 29 MEQ/L (21-32); CHLORIDE LEVEL 107 MEQ/L (98-107); CREATININE FOR GFR 0.81 MG/DL (0.55-1.30); GLOMERULAR FILTRATION RATE > 60.0 (>60); GLUCOSE, FASTING 104 MG/DL (70-100); POTASSIUM SERUM 3.7 MEQ/L (3.5-5.1); SODIUM LEVEL 143 MEQ/L (136-145)
[2018-01-29] MEDS: DEXILANT 60 MG PO (09:50)
[2018-01-29] MEDS: ALPRAZolam 0.5 MG TAB PO (21:55)
[2018-01-30] MEDS: DEXILANT 60 MG PO (08:48)
[2018-01-30] MEDS: VENLAFAXINE 25 MG TAB PO (08:48)
== END 2018-01-30 12:50 | disposition home or self-care (01) | DRG 881 ==
LOC: M ED 18:53 → M ED INP 21:28 → M PSY 23:36
DX: F32.9 Major depressive disorder, single episode, unspecified (principal); F41.0 Panic disorder [episodic paroxysmal anxiety]; F41.1 Generalized anxiety disorder; Z81.8 Family history of other mental and behavioral disorders; J45.909 Unspecified asthma, uncomplicated; G43.709 Chronic migraine without aura, not intractable, without status migrainosus; K21.9 Gastro-esophageal reflux disease without esophagitis; M54.2 Cervicalgia; D64.9 Anemia, unspecified; J30.81 Allergic rhinitis due to animal (cat) (dog) hair and dander; Z90.49 Acquired absence of other specified parts of digestive tract; Z98.84 Bariatric surgery status; Z79.899 Other long term (current) drug therapy; Z88.5 Allergy status to narcotic agent; Z88.8 Allergy status to other drugs, medicaments and biological substances; Z91.048 Other nonmedicinal substance allergy status

== ENCOUNTER → 2018-01-26 | Outpatient (REF) | payer OTHER | LOC: M SFHCPLAZ 12:38 | DX: R19.7 Diarrhea, unspecified (principal); R10.84 Generalized abdominal pain ==

== ENCOUNTER 2018-03-10 16:59 | Emergency (ER) | payer OTHER ==
[2018-03-10 18:19] LABS: KETONE, URINE AUTO RFX NEGATIVE (NEGATIVE); LEUKOCYTE ESTERASE UR AUTO RFX NEGATIVE (NEGATIVE); MUCUS, URINE RFX SMALL (NEGATIVE); NITRITE, URINE AUTO RFX NEGATIVE (NEGATIVE); RBC, URINE AUTO RFX 3 /HPF (0-3); SPECIFIC GRAVITY UR AUTO RFX 1.023 (1.002-1.035); SQUAM EPITHELIAL CELL UR AURFX 0 /HPF (0-6); WBC, URINE AUTO RFX 0 /HPF (0-3)
[2018-03-10 18:56] LABS: CONTROL LINE UCG INT CTR LINE PRESENT; URINE PREG TEST NEGATIVE (NEGATIVE)
[2018-03-10 19:41] LABS: HCG, SERUM QUANTITATIVE < 1.0 MIU/ML
[2018-03-10 21:23] LABS: CHLAMYDIA DNA AMPLIFICATION NEGATIVE (NEGATIVE); GC DNA AMPLIFICATION NEGATIVE (NEGATIVE)
== END 2018-03-10 20:20 | disposition home or self-care (01) ==
LOC: M ED 16:59
DX: N89.8 Other specified noninflammatory disorders of vagina (principal); E11.9 Type 2 diabetes mellitus without complications; I10 Essential (primary) hypertension; J45.909 Unspecified asthma, uncomplicated; F41.9 Anxiety disorder, unspecified; Z98.84 Bariatric surgery status; Z79.3 Long term (current) use of hormonal contraceptives; Z79.899 Other long term (current) drug therapy; Z86.19 Personal history of other infectious and parasitic diseases; Z91.048 Other nonmedicinal substance allergy status; Z91.041 Radiographic dye allergy status; Z88.5 Allergy status to narcotic agent; Z88.8 Allergy status to other drugs, medicaments and biological substances
CPT/HCPCS: 84703

== ENCOUNTER 2018-03-31 18:31 | Emergency (ER) | payer OTHER ==
[2018-03-31] MEDS: NS 1,000 ML IV (19:32)
[2018-03-31 19:47] LABS: BASO % 0.6 % (0.0-1.0); EOS # 0.4 10^3/uL (0.0-0.50); EOS % 7.1 % (0.0-3.0); HEMATOCRIT 39.8 % (36.0-47.0); HEMOGLOBIN 13.5 g/dl (12.0-15.5); IMMATURE GRANULOCYTE % 0.2 % (0-3.0); LYMPH # 2.1 10^3/uL (1.5-4.5); LYMPH % 39.8 % (24.0-44.0); MEAN CORPUSCULAR HEMOGLOBIN 29.5 pg (27.0-33.0); MEAN CORPUSCULAR HGB CONC 33.9 g/dl (32.0-36.5); MEAN CORPUSCULAR VOLUME 87.1 fl (80.0-96.0); MONO # 0.4 10^3/uL (0.0-0.8); MONO % 7.8 % (0.0-5.0); NEUTROPHILS # 2.3 10^3/uL (1.8-7.7); NEUTROPHILS % 44.5 % (36.0-66.0); PLATELET COUNT, AUTOMATED 233 10^3/uL (150-450); RED BLOOD COUNT 4.57 10^6/uL (4.00-5.40); RED CELL DISTRIBUTION WIDTH 12.6 % (11.5-14.5); WHITE BLOOD COUNT 5.2 10^3/uL (4.0-10.0)
[2018-03-31 19:49] LABS: KETONE, URINE AUTO RFX NEGATIVE (NEGATIVE); LEUKOCYTE ESTERASE UR AUTO RFX NEGATIVE (NEGATIVE); NITRITE, URINE AUTO RFX NEGATIVE (NEGATIVE); RBC, URINE AUTO RFX 2 /HPF (0-3); SPECIFIC GRAVITY UR AUTO RFX 1.006 (1.002-1.035); SQUAM EPITHELIAL CELL UR AURFX 0 /HPF (0-6); WBC, URINE AUTO RFX 0 /HPF (0-3)
[2018-03-31 20:38] LABS: BLOOD UREA NITROGEN 8 MG/DL (7-18); CARBON DIOXIDE LEVEL 29 MEQ/L (21-32); CHLORIDE LEVEL 106 MEQ/L (98-107); CREATININE FOR GFR 0.57 MG/DL (0.55-1.30); GLOMERULAR FILTRATION RATE > 60.0 (>60); GLUCOSE, FASTING 87 MG/DL (70-100); POTASSIUM SERUM 3.4 MEQ/L (3.5-5.1); SODIUM LEVEL 140 MEQ/L (136-145)
[2018-03-31 20:39] LABS: ALKALINE PHOSPHATASE 88 U/L (45-117); ALT/SGPT 61 U/L (12-78); ANION GAP 5 MEQ/L (8-16); AST/SGOT 43 U/L (7-37); BILIRUBIN,TOTAL 0.9 MG/DL (0.2-1.0); CALCIUM LEVEL 8.4 MG/DL (8.5-10.1)
[2018-03-31 20:40] LABS: ALBUMIN 3.8 GM/DL (3.2-5.2); ALBUMIN/GLOBULIN RATIO 1.31 (1.00-1.93); BILIRUBIN,DIRECT 0.2 MG/DL (0.0-0.2); TOTAL PROTEIN 6.7 GM/DL (6.4-8.2)
[2018-03-31 20:56] LABS: LIPASE 81 U/L (73-393)
== END 2018-03-31 22:45 | disposition home or self-care (01) ==
LOC: M ED 18:31
DX: A04.4 Other intestinal Escherichia coli infections (principal)
CPT/HCPCS: 74176

== ENCOUNTER → 2018-05-20 | Outpatient (REF) | payer OTHER ==
[2018-05-20 18:39] LABS: HEMATOCRIT 34.7 % (36.0-47.0); HEMOGLOBIN 11.7 g/dl (12.0-15.5); MEAN CORPUSCULAR HEMOGLOBIN 30.7 pg (27.0-33.0); MEAN CORPUSCULAR HGB CONC 33.7 g/dl (32.0-36.5); MEAN CORPUSCULAR VOLUME 91.1 fl (80.0-96.0); PLATELET COUNT, AUTOMATED 250 10^3/uL (150-450); RED BLOOD COUNT 3.81 10^6/uL (4.00-5.40); WHITE BLOOD COUNT 8.4 10^3/uL (4.0-10.0)
[2018-05-20 18:44] LABS: ALBUMIN 3.3 GM/DL (3.2-5.2); ALBUMIN/GLOBULIN RATIO 1.03 (1.00-1.93); ALKALINE PHOSPHATASE 53 U/L (45-117); ALT/SGPT 15 U/L (12-78); ANION GAP 6 MEQ/L (8-16); AST/SGOT 10 U/L (7-37); BILIRUBIN,TOTAL 0.6 MG/DL (0.2-1.0); BLOOD UREA NITROGEN 11 MG/DL (7-18); CARBON DIOXIDE LEVEL 29 MEQ/L (21-32); CHLORIDE LEVEL 107 MEQ/L (98-107); CREATININE FOR GFR 0.69 MG/DL (0.55-1.30); FERRITIN 6 NG/ML (8-252); GLOMERULAR FILTRATION RATE > 60.0 (>60); GLUCOSE, FASTING 73 MG/DL (70-100); IRON (FE) 70 UG/DL (50-170); PERCENT SATURATION 18.3 % (13.2-45.0); POTASSIUM SERUM 3.5 MEQ/L (3.5-5.1); SODIUM LEVEL 142 MEQ/L (136-145); TOTAL IRON BINDING CAPACITY 383 UG/DL (250-450); TOTAL PROTEIN 6.5 GM/DL (6.4-8.2)
[2018-05-20 18:46] LABS: FOLATE 15.9 NG/ML (>5.4); VITAMIN B12 LEVEL 334 PG/ML (247-911)
== END ==
LOC: M LABDRAW1 14:35
DX: Z98.84 Bariatric surgery status (principal); E87.6 Hypokalemia

== ENCOUNTER → 2018-07-21 | Outpatient (CLI) | payer OTHER ==
[~2018-07-21] MED LIST changes: +B COMPLEX TD; +BREO1INH INH; +CAFFEINE TD; +DEXI60CA2; +DEXI60CA2 PO; +EFFE75CA2 PO; +IMIT50TA PO; +IPRA2IN INH; +LEVOTAB10; +METR-201 PO; -METR1TAB66 PO; +ONDA4TAB5; +PRED20TA PO; +SUMA50TA2 PO; +TIZA-208 PO; +TRINTAB; +VISI0.054 OU; +VITACHTA PO; +XANA0.5T PO; +XANA1TAB2 PO; +ZOFR4TAB14 PO; -ZOFR4TAB3 PO; +[UNRECOGNIZED DRUG - OTHER] PO
[2018-07-21 10:46] LABS: HEMATOCRIT 35.8 % (36.0-47.0); HEMOGLOBIN 11.9 g/dl (12.0-15.5); MEAN CORPUSCULAR HEMOGLOBIN 30.5 pg (27.0-33.0); MEAN CORPUSCULAR HGB CONC 33.2 g/dl (32.0-36.5); MEAN CORPUSCULAR VOLUME 91.8 fl (80.0-96.0); PLATELET COUNT, AUTOMATED 211 10^3/uL (150-450); WHITE BLOOD COUNT 5.7 10^3/uL (4.0-10.0)
[2018-07-21 11:11] LABS: PERCENT SATURATION 39.6 % (13.2-45.0)
== END ==
LOC: M LAB 09:45
PROVIDERS: ATTEND Physician Assistant
DX: D50.9 Iron deficiency anemia, unspecified (principal)

== ENCOUNTER 2018-08-23 09:28 | Emergency (ER) | payer OTHER ==
[~2018-08-23] VITALS: Ht 162.6 cm; Wt 63.6 kg
[2018-08-23] MEDS ORDERED: NS 1,000 ML IV ONE (10:15)
[2018-08-23] MEDS ORDERED: ONDANSETRON 4MG/2ML VIAL (J2405) IV ONE (10:15)
[2018-08-23] MEDS ORDERED: GASTROGRAFIN SOLUTION 30ML PO SCH (10:30)
[2018-08-23] MEDS: READI-CAT 2 PO SCH ×2 (10:35→11:39)
[2018-08-23 10:39] LABS: BASO % 0.7 % (0.0-1.0); EOS # 0.1 10^3/uL (0.0-0.50); EOS % 1.6 % (0.0-3.0); HEMATOCRIT 36.8 % (36.0-47.0); HEMOGLOBIN 12.5 g/dl (12.0-15.5); LYMPH # 2.1 10^3/uL (1.5-4.5); LYMPH % 34.2 % (24.0-44.0); MEAN CORPUSCULAR HEMOGLOBIN 30.8 pg (27.0-33.0); MEAN CORPUSCULAR VOLUME 90.6 fl (80.0-96.0); MONO # 0.3 10^3/uL (0.0-0.8); MONO % 4.2 % (0.0-5.0); NEUTROPHILS # 3.6 10^3/uL (1.8-7.7); NEUTROPHILS % 59.1 % (36.0-66.0); PLATELET COUNT, AUTOMATED 263 10^3/uL (150-450); RED BLOOD COUNT 4.06 10^6/uL (4.00-5.40); WHITE BLOOD COUNT 6.1 10^3/uL (4.0-10.0)
[2018-08-23] MEDS ORDERED: KETOROLAC 30 MG/ML VIAL (J1885) IV ONE (10:45)
[2018-08-23 10:58] LABS: ALBUMIN 3.9 GM/DL (3.2-5.2); ALT/SGPT 18 U/L (12-78); AMYLASE 58 U/L (25-115); BILIRUBIN,DIRECT 0.2 MG/DL (0.0-0.2); BILIRUBIN,TOTAL 1.1 MG/DL (0.2-1.0); BLOOD UREA NITROGEN 10 MG/DL (7-18); CALCIUM LEVEL 8.3 MG/DL (8.5-10.1); CARBON DIOXIDE LEVEL 30 MEQ/L (21-32); CHLORIDE LEVEL 107 MEQ/L (98-107); CREATININE FOR GFR 0.78 MG/DL (0.55-1.30); GLOMERULAR FILTRATION RATE > 60.0 (>60); GLUCOSE, FASTING 93 MG/DL (70-100); LIPASE 118 U/L (73-393); POTASSIUM SERUM 3.8 MEQ/L (3.5-5.1); SODIUM LEVEL 142 MEQ/L (136-145); TOTAL PROTEIN 7.1 GM/DL (6.4-8.2)
[2018-08-23 11:17] LABS: INFLUENZA A AMPLIFICATION NEGATIVE (NEGATIVE); INFLUENZA B AMPLIFICATION NEGATIVE (NEGATIVE)
[2018-08-23 12:56] VITALS: BP 124/69
[2018-08-23] MEDS ORDERED: PEPC1TAB5 PO (13:34)
[2018-08-23] MEDS ORDERED: ONDA4TAB6 PO (13:34)
--- NOTE | 2018-08-23 13:40 | REP ---
CT ABDOMEN AND PELVIS WITHOUT CONTRAST: HISTORY: Left upper quadrant pain. COMPARISON: 03/31/2018. The patient is status post cholecystectomy and stomach banding procedure. The liver, pancreas, spleen, adrenal glands and kidneys are normal in appearance. There is no mass adenopathy or free fluid. The visualized lungs are clear. The urinary bladder is normal in appearance. There is minimal enlargement of the uterus. There is no fracture or subluxation. IMPRESSION: 1. The patient is status post cholecystectomy and stomach banding procedure. 2. There is minimal enlargement of the uterus. Unreviewed
== END 2018-08-23 13:49 | disposition home or self-care (01) ==
LOC: M ED 09:28
DX: K29.00 Acute gastritis without bleeding (principal)
CPT/HCPCS: 74176; 80048; 80076; 81001; 81025; 82150; 83690; 85025; 87502; 96374; 96375; 99284; J1885; J2405

== ENCOUNTER → 2018-09-26 | Outpatient (CLI) | payer OTHER ==
[~2018-09-26] MED LIST changes: -/VITACHEW PO; -ACET50TA PO; +FLIN1CHW3 PO; +MAPA500T17 PO; -METR-201 PO; +METR-265 PO; +ONDA4TAB6 PO; +PEPC1TAB5 PO; -TIZA-208 PO; +TIZA4TAB4 PO
--- NOTE | 2018-09-29 10:33 | SLEEPCENT ---
DATE OF PROCEDURE: 09/26/2018 ORDERING PROVIDER: Mya Eugene NP Nocturnal polysomnography was performed for evaluation of sleep physiology in this patient with a prior history of obstructive sleep apnea syndrome. Since her diagnosis, she has had significant weight loss. 7 hours and 42 minutes of data were reviewed. 51 minutes of sleep identified. Sleep latency was prolonged 26.5 minutes. Rapid eye movement (REM) latency was prolonged at 345 minutes. Sleep architecture showed some poor progression. There was minimal fragmentation. Overall sleep efficiency was good at 79.1%. The electrocardiogram showed a sinus rhythm with an average heart rate of 80 beats per minute. Electroencephalogram (EEG) showed some coarsening in background. No focal events were identified. There were only two obstructive respiratory events identified of 10 seconds in duration or greater for an apnea-hypopnea index within normal limits 0.3. Snoring was noted, and arousals from snore events occurred only 0.5 times per hour. There were no oxygen desaturations IMPRESSION: Normal nocturnal polysomnography with snoring.
== END ==
LOC: M SLEEP 19:46
PROVIDERS: ATTEND Nurse Practitioner Family
DX: R06.83 Snoring (principal)

== ENCOUNTER 2018-11-25 09:07 | Emergency (ER) | payer OTHER ==
[~2018-11-25] VITALS: Ht 162.6 cm; Wt 65.0 kg
[2018-11-25] MEDS ORDERED: VENL75CA2 (09:28)
[2018-11-25] MEDS ORDERED: ZOLP5TAB (09:28)
[2018-11-25] MEDS ORDERED: AMPH15CA (09:28)
[2018-11-25] MEDS ORDERED: BACL5TAB2 (09:28)
[2018-11-25] MEDS ORDERED: KETOROLAC 30 MG/ML VIAL (J1885) IV ONE (10:15)
[2018-11-25] MEDS ORDERED: CYCLOBENZAPRINE 5MG TABLET PO ONE (10:15)
--- NOTE | 2018-11-25 10:31 | REP ---
CT study of the cervical spine without contrast: History: Neck pain. Left upper extremity radiculopathy. Technique: Helical scanning is acquired and overlapping 2 mm high resolution axial images were generated and reviewed at bone and soft tissue window settings. Coronal and sagittal multiplanar re-formations images are generated. CT findings: There is slight straightening. Mild degenerative disc narrowing is seen at C2-3 and C3-4 and to a lesser extent at C5-6. Axial images and sagittal images at the C2-3 level demonstrate right-sided uncovertebral spurring mild in degree. There is also mild right-sided uncovertebral spurring at C3-4. No focal disc protrusion is seen at either of these levels. There does not appear to be central canal stenosis. The C4-5 and C5-6 posterior disc margins appear intact. No other neural foraminal encroachment is appreciated. Exam is otherwise unremarkable. Lung apices are clear. No extra vertebral abnormality. Impression: Mild degenerative spondylosis changes C2-3, C3-4, and C5-6. Mild right-sided uncovertebral spurring at C 2-3 and C3-4. Electronically Signed by Payam Luther MD 11/25/2018 10:23 A
[2018-11-25] MEDS ORDERED: predniSONE 20 MG TAB PO ONE (12:15)
[2018-11-25 12:28] VITALS: BP 149/96
[2018-11-25] MEDS ORDERED: GABA-1171 PO (13:00)
== END 2018-11-25 13:26 | disposition home or self-care (01) ==
LOC: M ED 09:07
DX: M50.30 Other cervical disc degeneration, unspecified cervical region (principal); M54.12 Radiculopathy, cervical region; M62.838 Other muscle spasm; J45.909 Unspecified asthma, uncomplicated; K21.9 Gastro-esophageal reflux disease without esophagitis; J32.9 Chronic sinusitis, unspecified; Z79.899 Other long term (current) drug therapy; Z88.5 Allergy status to narcotic agent; Z88.8 Allergy status to other drugs, medicaments and biological substances
CPT/HCPCS: 72125; 96374; 99284; J1885

== ENCOUNTER → 2018-12-07 | Outpatient (CLI) | payer OTHER ==
[~2018-12-07] MED LIST changes: +AMPH15CA; +BACL5TAB2; +GABA-1171 PO; +VENL75CA2; +ZOLP5TAB
--- NOTE | 2018-12-08 14:32 | REPVR ---
EXAM: MR Cervical Spine Without Contrast EXAM DATE/TIME: 12/07/2018 3:48 PM CLINICAL HISTORY: 38 years old, female; Cervicalgia; Patient HX: TECHNIQUE: Imaging protocol: Multiplanar magnetic resonance images of the cervical spine without contrast. COMPARISON: CT Spine,cervical w/o contrast 11/25/2018 10:05 AM FINDINGS: Vertebrae: There is straightening of the cervical spine. This is nonspecific but may be seen in the setting of cervical muscle spasm, please correlate clinically. Spinal cord: Normal signal. No cord compression. C2-C3: There is a moderate disc/osteophyte complex, partial toward the right, that flattens the ventral thecal sac and compromises the right neural foramen. C3-C4: There is a moderate disc/osteophyte complex that flattens the ventral thecal sac. There is bilateral uncovertebral joint arthropathy, worse on the right. There is moderate right-sided neuroforaminal narrowing. C4-C5: No significant disc disease. No significant spinal stenosis. C5-C6: There is a moderate disc/osteophyte complex that flattens the ventral thecal sac. There is a small left paracentral disc protrusion. There is effacement of the ventral subarachnoid space and indentation of the ventral cervical cord. C6-C7: No significant disc disease. No significant spinal stenosis. C7-T1: No significant disc disease. No significant spinal stenosis. Soft tissues: Unremarkable. IMPRESSION: 1. There is straightening of the cervical spine. This is nonspecific but may be seen in the setting of cervical muscle spasm, please correlate clinically. 2. Multilevel degenerative changes as described above. Asymmetric right-sided neuroforaminal narrowing at C2/3 and C3/4. Electronically signed by: Jason Huynh On 12/08/2018 14:32:42 PM
== END ==
LOC: M RAD 14:51
PROVIDERS: ATTEND Physician Assistant Medical
DX: M50.31 Other cervical disc degeneration, high cervical region (principal)

== ENCOUNTER → 2018-12-25 | Outpatient (REF) | payer OTHER ==
[2018-12-25 15:34] LABS: HEMATOCRIT 35.1 % (36.0-47.0); HEMOGLOBIN 11.9 g/dl (12.0-15.5); MEAN CORPUSCULAR HEMOGLOBIN 31.1 pg (27.0-33.0); MEAN CORPUSCULAR HGB CONC 33.9 g/dl (32.0-36.5); MEAN CORPUSCULAR VOLUME 91.6 fl (80.0-96.0); PLATELET COUNT, AUTOMATED 258 10^3/uL (150-450); RED BLOOD COUNT 3.83 10^6/uL (4.00-5.40); WHITE BLOOD COUNT 8.3 10^3/uL (4.0-10.0)
[2018-12-25 15:56] LABS: ALBUMIN 3.8 GM/DL (3.2-5.2); ALT/SGPT 21 U/L (12-78); BILIRUBIN,TOTAL 0.8 MG/DL (0.2-1.0); BLOOD UREA NITROGEN 12 MG/DL (7-18); CALCIUM LEVEL 8.5 MG/DL (8.5-10.1); CARBON DIOXIDE LEVEL 29 MEQ/L (21-32); CHLORIDE LEVEL 106 MEQ/L (98-107); FERRITIN 11 NG/ML (8-252); FREE T4 0.92 NG/DL (0.76-1.46); GLOMERULAR FILTRATION RATE > 60.0 (>60); GLUCOSE, FASTING 102 MG/DL (70-100); IRON (FE) 103 UG/DL (50-170); MAGNESIUM LEVEL 2.2 MG/DL (1.8-2.4); PERCENT SATURATION 31.9 % (13.2-45.0); POTASSIUM SERUM 3.6 MEQ/L (3.5-5.1); SODIUM LEVEL 141 MEQ/L (136-145); TOTAL IRON BINDING CAPACITY 323 UG/DL (250-450); TOTAL PROTEIN 6.8 GM/DL (6.4-8.2)
[2018-12-25 16:24] LABS: PTH INTACT 93.4 PG/ML (18.5-88.0); VITAMIN B12 LEVEL 369 PG/ML (247-911)
[2018-12-25 17:01] LABS: MONO SCRN POSITIVE (NEGATIVE)
[2018-12-30 14:07] LABS: VITAMIN B1 LEVEL WHOLE BLOOD 143.7 nmol/L (66.5-200.0); VITAMIN B6,PYRIDOXAL PHOSPHATE 8.8 ug/L (2.0-32.8)
== END ==
LOC: M LABDRAW1 14:05
PROVIDERS: ATTEND Physician Assistant Medical
DX: R53.83 Other fatigue (principal); E55.9 Vitamin D deficiency, unspecified; D50.9 Iron deficiency anemia, unspecified; G44.209 Tension-type headache, unspecified, not intractable; Z98.84 Bariatric surgery status

== ENCOUNTER → 2018-12-28 | Outpatient (CLI) | payer OTHER ==
--- NOTE | 2018-12-29 04:40 | REP ---
Clinical: Spondylosis. Radiculopathy. Technique: AP, lateral, flexion/extension, open-mouth and swimmer's views of the cervical spine. Findings: Alignment and lordosis maintained. No acute fracture / compression injury or subluxation. C1-C2 articulation and odontoid process are normal. No significant degenerative changes noted by radiographic evaluation. Impression: Age-appropriate cervical spine radiograph series. Electronically Signed by Tejas Buckner MD 12/29/2018 04:31 A
== END ==
LOC: M RAD 16:48
PROVIDERS: ATTEND Neurological Surgery
DX: M47.22 Other spondylosis with radiculopathy, cervical region (principal)

== ENCOUNTER → 2019-05-19 | Outpatient (REF) | payer OTHER ==
[~2019-05-19] MED LIST changes: -AMPH15CA; +AMPH1CAP15; -OMEP40CA2 PO; +OMEP40CA97 PO
[2019-05-19 20:04] LABS: CK-MB VALUE MASS < 1.0 NG/ML (<3.6); CPK CREATINE PHOSPHOKINASE 61 U/L (26-192); MB/CK RELATIVE INDEX 1.63 (< OR =4); TROPONIN I < 0.02 NG/ML (< 0.10)
== END ==
LOC: M SFHCPLAZ 14:51
PROVIDERS: ATTEND Physician Assistant Medical
DX: R07.89 Other chest pain (principal)

== ENCOUNTER 2019-08-03 18:47 | Emergency (ER) | payer OTHER ==
[~2019-08-03 18:47] MED LIST changes: +ONDA-83; -ONDA4TAB5
--- NOTE | 2019-08-03 20:33 | REP ---
CHEST, TWO VIEWS: There is no evidence of acute infiltrate. No pleural effusion is seen. The heart is normal in size. The mediastinal silhouette is unremarkable. The visualized osseous structures are intact. IMPRESSION: No acute pulmonary disease. Electronically Signed by Eligio Sainz MD 08/04/2019 03:33 P
[2019-08-03] MEDS ORDERED: XULA1DIS (21:33)
[2019-08-03] MEDS ORDERED: IPRATROPIUM 0.5MG/ALBUTEROL 2.5MG INH SOL UD 3ML (DUONEB)(J7620) NEB ONE (22:00)
[2019-08-03] MEDS ORDERED: methylPREDNISolone INJ 125 MG/2 ML VIAL (J2930) IV ONE (22:00)
[2019-08-03 23:09] LABS: BASO % 0.5 % (0.0-1.0); EOS # 0.2 10^3/uL (0.0-0.5); HEMOGLOBIN 13.7 g/dl (12.0-15.5); LYMPH # 2.7 10^3/uL (1.5-5.0); MEAN CORPUSCULAR HEMOGLOBIN 30.1 pg (27.0-33.0); MEAN CORPUSCULAR HGB CONC 33.4 g/dl (32.0-36.5); MEAN CORPUSCULAR VOLUME 90.1 fl (80.0-96.0); MONO # 0.3 10^3/uL (0.0-0.8); NEUTROPHILS # 1.2 10^3/uL (1.5-8.5); NEUTROPHILS % 26.5 % (36.0-66.0); PLATELET COUNT, AUTOMATED 195 10^3/uL (150-450); RED BLOOD COUNT 4.55 10^6/uL (4.00-5.40); WHITE BLOOD COUNT 4.4 10^3/uL (4.0-10.0)
[2019-08-03 23:33] LABS: BLOOD UREA NITROGEN 11 MG/DL (7-18); CALCIUM LEVEL 9.4 MG/DL (8.5-10.1); CARBON DIOXIDE LEVEL 29 MEQ/L (21-32); CHLORIDE LEVEL 108 MEQ/L (98-107); CREATININE FOR GFR 0.67 MG/DL (0.55-1.30); GLOMERULAR FILTRATION RATE > 60.0 (>60); GLUCOSE, FASTING 97 MG/DL (70-100); POTASSIUM SERUM 3.7 MEQ/L (3.5-5.1); SODIUM LEVEL 142 MEQ/L (136-145)
[2019-08-03] MEDS ORDERED: MEDR4PAK PO (23:51)
[2019-08-04 00:23] VITALS: BP 127/87
== END 2019-08-04 00:34 | disposition home or self-care (01) ==
LOC: M ED 18:47
DX: J45.901 Unspecified asthma with (acute) exacerbation (principal); J09.X2 Influenza due to identified novel influenza A virus with other respiratory manifestations; M50.222 Other cervical disc displacement at C5-C6 level; R01.1 Cardiac murmur, unspecified; Z91.041 Radiographic dye allergy status; Z88.8 Allergy status to other drugs, medicaments and biological substances; Z88.5 Allergy status to narcotic agent; Z91.048 Other nonmedicinal substance allergy status; Z79.899 Other long term (current) drug therapy; Z79.3 Long term (current) use of hormonal contraceptives
CPT/HCPCS: 71046; 80048; 85025; 85379; 94640; 96374; 99284; J2930

== ENCOUNTER → 2019-12-17 | Outpatient (CLI) | payer OTHER ==
[~2019-12-17] MED LIST changes: +MEDR4PAK PO; +XULA1DIS
[2019-12-17 12:43] LABS: BASO % 0.7 % (0.0-1.0); EOS # 0.3 10^3/uL (0.0-0.5); EOS % 4.6 % (0.0-3.0); HEMATOCRIT 36.8 % (36.0-47.0); HEMOGLOBIN 12.1 g/dl (12.0-15.5); LYMPH # 1.9 10^3/uL (1.5-5.0); LYMPH % 35.7 % (24.0-44.0); MEAN CORPUSCULAR HEMOGLOBIN 29.9 pg (27.0-33.0); MEAN CORPUSCULAR HGB CONC 32.9 g/dl (32.0-36.5); MEAN CORPUSCULAR VOLUME 90.9 fl (80.0-96.0); MONO # 0.4 10^3/uL (0.0-0.8); MONO % 7.6 % (0.0-5.0); NEUTROPHILS # 2.8 10^3/uL (1.5-8.5); NEUTROPHILS % 51.2 % (36.0-66.0); PLATELET COUNT, AUTOMATED 250 10^3/uL (150-450); RED BLOOD COUNT 4.05 10^6/uL (4.00-5.40); WHITE BLOOD COUNT 5.4 10^3/uL (4.0-10.0)
[2019-12-17 12:57] LABS: FERRITIN 7 NG/ML (8-252); IRON (FE) 145 UG/DL (50-170)
[2019-12-17 13:01] LABS: PTH INTACT 77.4 PG/ML (18.5-88.0); TOTAL 25(OH) VITAMIN D 26.4 NG/ML (30.0-100.0)
[2019-12-17 13:41] LABS: HIV 1&2 SCREEN CENTAUR NEGATIVE (NEGATIVE)
[2019-12-17 18:04] LABS: C REACTIVE PROTEIN QUANTITATIV < 0.30 MG/DL (0.00-0.30)
[2019-12-17 18:42] LABS: ERYTHROCYTE SEDIMENTATION RATE 15 mm/hr (0-20)
[2019-12-20 17:05] LABS: ANA (HEP2) Negative (.); ANCA-ATYPICAL <1:20 titer (Neg:<1:20); ANTI CENTROMERE ANTIBODY <0.2 AI (0.0-0.9); ANTI SCLERODERMA ANTIBODIES 3.5 AI (0.0-0.9); ANTI-SMOOTH MUSCLE ANTIBODY 4 Units (0-19); CARDIOLIPIN IGA ANTIBODY <9 APL U/mL (0-11); CARDIOLIPIN IGG ANTIBODY <9 GPL U/mL (0-14); CARDIOLIPIN IGM ANTIBODY <9 MPL U/mL (0-12); CYTOPLASMIC NEUTROP AB ANCA-C <1:20 titer (Neg:<1:20); Lyme Disease IgG/IgM Antibodie <0.91 ISR (0.00-0.90); Lyme Disease IgM Ab Quantitati <0.80 index (0.00-0.79); PERINUCLEAR AB ANCA-P <1:20 titer (Neg:<1:20); SSA SJOGRENS A <0.2 AI (0.0-0.9); SSB SJOGRENS B <0.2 AI (0.0-0.9)
== END ==
LOC: M PLALAB 08:34
PROVIDERS: ATTEND Physician Assistant Medical
DX: M25.50 Pain in unspecified joint (principal); I10 Essential (primary) hypertension; E55.9 Vitamin D deficiency, unspecified; D50.9 Iron deficiency anemia, unspecified

== ENCOUNTER 2020-01-22 01:22 | Emergency (ER) | payer OTHER ==
[2020-01-22] MEDS ORDERED: POTASSIUM CHLORIDE 10 MEQ SR TABLET As Ordered ONE (02:16)
[2020-01-22] MEDS ORDERED: POTASSIUM CHLORIDE 10 MEQ SR TABLET ONE (02:16)
[2020-01-27] MEDS ORDERED: METAL LOCK LOOP XX ONE (01:46)
[2020-01-28] MEDS ORDERED: METAL LOCK LOOP XX ONE (05:23)
[2020-03-06 11:36] LABS: INR 0.93; PARTIAL THROMBOPLASTIN TIME 30.3 SECONDS (24.2-38.5); PROTHROMBIN TIME 12.7 SECONDS (12.5-14.3)
[2020-03-06 13:33] LABS: RED BLOOD COUNT 3.43 10^6/uL (4.00-5.40); WHITE BLOOD COUNT 5.6 10^3/uL (4.0-10.0)
[2020-03-06 13:34] LABS: BASO # 0.1 10^3/uL (0.0-0.2); BASO % 0.9 % (0.0-1.0); EOS # 0.3 10^3/uL (0.0-0.5); EOS % 4.6 % (0.0-3.0); HEMOGLOBIN 10.2 g/dl (12.0-15.5); LYMPH % 35.5 % (24.0-44.0); MEAN CORPUSCULAR HEMOGLOBIN 29.7 pg (27.0-33.0); MEAN CORPUSCULAR HGB CONC 32.9 g/dl (32.0-36.5); MEAN CORPUSCULAR VOLUME 90.4 fl (80.0-96.0); MONO # 0.4 10^3/uL (0.0-0.8); MONO % 6.9 % (0.0-5.0); NEUTROPHILS # 2.9 10^3/uL (1.5-8.5); NEUTROPHILS % 51.7 % (36.0-66.0); PLATELET COUNT, AUTOMATED 197 10^3/uL (150-450)
== END 2020-01-22 05:10 | disposition home or self-care (01) ==
LOC: M ED 01:22
DX: R07.9 Chest pain, unspecified (principal); R42 Dizziness and giddiness; R06.02 Shortness of breath; G43.909 Migraine, unspecified, not intractable, without status migrainosus; K86.1 Other chronic pancreatitis; F43.10 Post-traumatic stress disorder, unspecified; F41.9 Anxiety disorder, unspecified; J45.909 Unspecified asthma, uncomplicated; Z88.5 Allergy status to narcotic agent; Z91.041 Radiographic dye allergy status; Z88.8 Allergy status to other drugs, medicaments and biological substances; Z79.899 Other long term (current) drug therapy

== ENCOUNTER → 2020-02-03 | Outpatient (CLI) | payer OTHER | LOC: M LABSMTC 14:00 | PROVIDERS: ATTEND Orthopaedic Surgery | DX: Z03.818 Encounter for observation for suspected exposure to other biological agents ruled out (principal); Z11.59 Encounter for screening for other viral diseases | CPT/HCPCS: C9803; U0003 ==

== ENCOUNTER → 2020-04-11 | Outpatient (REF) | payer OTHER ==
[2020-04-11 14:01] LABS: BASO % 0.8 % (0.0-1.0); EOS # 0.3 10^3/uL (0.0-0.5); EOS % 5.8 % (0.0-3.0); HEMOGLOBIN 11.9 g/dl (12.0-15.5); LYMPH # 1.9 10^3/uL (1.5-5.0); LYMPH % 38.1 % (24.0-44.0); MEAN CORPUSCULAR HEMOGLOBIN 29.2 pg (27.0-33.0); MEAN CORPUSCULAR HGB CONC 32.2 g/dl (32.0-36.5); MEAN CORPUSCULAR VOLUME 90.9 fl (80.0-96.0); MONO # 0.4 10^3/uL (0.0-0.8); MONO % 7.9 % (0.0-5.0); NEUTROPHILS # 2.4 10^3/uL (1.5-8.5); PLATELET COUNT, AUTOMATED 269 10^3/uL (150-450); RED BLOOD COUNT 4.07 10^6/uL (4.00-5.40)
[2020-04-11 14:38] LABS: ALT/SGPT 14 U/L (12-78); BILIRUBIN,TOTAL 0.9 MG/DL (0.2-1.0); BLOOD UREA NITROGEN 18 MG/DL (7-18); CALCIUM LEVEL 8.8 MG/DL (8.5-10.1); CARBON DIOXIDE LEVEL 28 MEQ/L (21-32); CHLORIDE LEVEL 111 MEQ/L (98-107); CHOLESTEROL LEVEL 214 MG/DL (<200); CHOLESTEROL RISK RATIO 2.547 (<5); CREATININE FOR GFR 0.77 MG/DL (0.55-1.30); FERRITIN 6 NG/ML (8-252); FREE T4 0.97 NG/DL (0.76-1.46); GLOMERULAR FILTRATION RATE > 60.0 (>60); GLUCOSE, FASTING 82 MG/DL (70-100); HDL CHOLESTEROL 84 MG/DL (>40); IRON (FE) 93 UG/DL (50-170); LDL CHOLESTEROL 115 MG/DL (<100); NON-HDL-C 130 MG/DL; POTASSIUM SERUM 3.9 MEQ/L (3.5-5.1); SODIUM LEVEL 143 MEQ/L (136-145); TOTAL PROTEIN 6.6 GM/DL (6.4-8.2); TRIGLYCERIDES LEVEL 76 MG/DL (<150)
[2020-04-11 15:08] LABS: PTH INTACT 94.4 PG/ML (18.5-88.0); TOTAL 25(OH) VITAMIN D 29.5 NG/ML (30.0-100.0); VITAMIN B12 LEVEL 371 PG/ML (247-911)
== END ==
LOC: M SFHCPLAZ 09:50
PROVIDERS: ATTEND Physician Assistant Medical
DX: D50.9 Iron deficiency anemia, unspecified (principal); Z13.220 Encounter for screening for lipoid disorders; F41.1 Generalized anxiety disorder; E55.9 Vitamin D deficiency, unspecified

== ENCOUNTER 2020-07-24 15:04 | Emergency (ER) | payer OTHER ==
[~2020-07-24] VITALS: Ht 162.6 cm; Wt 70.0 kg
--- OUTSIDE RECORDS SUMMARY | 2020-07-24 15:18 | CCD | Continuity of Care Document ---
Author Author Emely CUMMINS NM Organization Unknown Address [address] [place] [id number] Phone [phone] Care Team Providers Care Power Shovel Operator Name Role Phone [facility] [phone] Problems Description No Information Available Social History Type Date Description Comments Sex Unknown ETOH Use Denies alcohol use Tobacco Use Start: Unknown Patient has never smoked Smoking Status Reviewed: 06/14/20 Patient has never smoked Allergies, Adverse Reactions, Alerts Active Allergies Reaction Severity Comments Date Mylanta Hives, SOB, chest pain 08/10 Dextromethorphan / Guaifenesin 08/01/2019 Morphine 08/01/2019 IV Contrast 08/01/2019 Reglan 08/01/2019 Medications Active Medications SIG Qnty Indications Ordering Provide r Date Vtzvlmgr-Mooeobdlt-WZ 1% Solution instill 4 drops to affected ear three times per day for seven days (both ears) 10ml H60.313 Stewart Ness JR., M.D. 06/14/2020 Albuterol Fha 90mcg/Act Aerosol 2 puffs q4hrs./prn sob or wheezing 1units Unknown Imitrex 50mg Tablets 1 tablet by mouth at first onset of migraine, may repeat x 1 after 2 hours if needed Unknown Atrovent HFA 17mcg/Act Aerosol 2 puffs every 4 hours as needed for sob/wheeze Unknown Tizanidine HCL 4mg Tablets 1 tablet by mouth every 6-8 hours as needed Unknown Xanax 0.5mg Tablets qhs Unknown Xyzal Allergy 24HR 5mg Tablets qhs Unknown Ambien 10mg Tablets Unknown Mobic 7.5mg Tablets Unknown Concerta Unknown Plaquenil Unknown Effexor XR Unknown Dexilant Unknown Medications Administered in Office Medication SIG Qnty Indications Ordering Provider Date Rocephin/Ceftriaxone Sodium Injection Pe r 250 MG Injection Rodrigo Barahona, P.A. 11/04/2019 Rocephin/Ceftriaxone Sodium Injection Pe r 250 MG Injection Rodrigo Barahona, P.A. 11/03/2019 Allergy Injection 2 Or More Injection Burak Wood, P.A. 02/25/2014 Allergy Injection 2 Or More Injection Tejas Kay, P.A. 02/13/2014 Allergy Injection 2 Or More Injection Burak Wood, P.A. 01/14/2014 Allergy Injection 2 Or More Injection Tejas Kay, P.A. 12/02/2013 Allergy Injection 2 Or More Injection Burak Wood, P.A. 11/19/2013 Allergy Injection 2 Or More Injection Tejas Kay, P.A. 11/12/2013 Allergy Injection 2 Or More Injection Burak Wood, P.A. 11/03/2013 Allergy Injection 2 Or More Injection Tejas Kay, P.A. 10/27/2013 Allergy Injection 2 Or More Injection Burak Wood, P.A. 10/12/2013 Allergy Injection 2 Or More Injection Burak Wood, P.A. 10/02/2013 Allergy Injection 2 Or More Injection Tejas Kay P.A. 09/25/2013 Allergy Injection 2 Or More Injection Burak Wood, P.A. 09/17/2013 Allergy Injection 2 Or More Injection Joy Hensley, [facility] 09/09/2013 Allergy Injection 2 Or More Injection Joy Hensley, [facility] 07/29/2013 Allergy Injection 2 Or More Injection Burak Wood, P.A. 07/20/2013 Allergy Injection 2 Or More Injection Burak Wood, P.A. 07/11/2013 Allergy Injection 2 Or More Injection Joy Hensley, [facility] 07/01/2013 Allergy Injection 2 Or More Injection Tejas Kay, P.A. 04/14/2013 Allergy Injection 2 Or More Injection Joy Hensley, [facility] 04/01/2013 Allergy Injection 2 Or More Injection Burak Wood, P.A. 10/30/2012 Allergy Injection 2 Or More Injection Tejas Kay, PBayA. 10/10/2012 Allergy Injection 2 Or More Injection Rodrigo Tha Barahona, P.A. 09/30/2012 Allergy Injection 2 Or More Injection Joy Fernie Hensley, [facility] 09/17/2012 Allergy Injection 2 Or More Injection Tejas Kay, P.A. 09/03/2012 Allergy Injection 2 Or More Injection Joy Fernie Hensley, [facility] 08/24/2012 Allergy Injection 2 Or More Injection CARMENCITA Arenas 11/03/2011 Immunizations Description No Information Available Vital Signs Date Vital Result Comment 06/14/2020 5:49pm BP Systolic 142 mmHg BP Diastolic 90 mmHg Heart Rate 92 /min Respiratory Rate 16 /min O2 % BldC Oximetry 98 % Body Temperature 97.1 F Weight 155.00 lb Height 64 inches 5'4" BMI (Body Mass Index) 26.6 kg/m2 Pain Level 4 11/04/2019 12:16pm BP Systolic 141 mmHg BP Diastolic 96 mmHg Heart Rate 110 /min O2 % BldC Oximetry 98 % Body Temperature 98.5 F Weight 148.00 lb Height 64 inches 5'4" BMI (Body Mass Index) 25.4 kg/m2 Pain Level 0 Results Description No Information Available Procedures Description No Information Available Medical Devices Description No Information Available Encounters Type Date Location Provider Dx Diagnosis Office Visit 06/14/2020 5:15p Main Office CARMENCITA Arenas H60 .313 Diffuse otitis externa, bilateral Assessments Date Code Description Provider 06/14/2020 H60.313 Diffuse otitis externa, bilatera l CARMENCITA Arenas Plan of Treatment 06/14/2020 - CARMENCITA Arenas* H60.313 Diffuse otitis externa, bilateral* New Medication:* Howxchdn-Fkkvthevu-PT 1 % - instill 4 drops to affected ear three times per day for seven days (both ears) * Comments:* Protect ears from water/Q-tips Functional Status Description No Information Available Mental Status Description No Information Available Referrals Description No Information Available
--- OUTSIDE RECORDS SUMMARY | 2020-07-24 15:18 | CCD ---
Author Author [facility] Organization [facility] ems Address Unknown Phone Unavailable Care Team Providers Care Tuberculosis Specialist Name Role Phone Katty Kamara Unavailable PROBLEMS Type Condition ICD9-CM Code [id number] Code Onset Dates Condition S tatus SNOMED Code Notes Problem BMI 40.0-44.9, adult Z68.41 Active 561839130 Problem Migraine without aura and without status migrain osus, not intractable G43.009 Active 813198391 Problem Mild persistent asthma without complication J45.30 Active 271839894 Problem Iron deficiency anemia, unspecified iron deficiency an emia type D50.9 Active 88901051 Problem Severe episode of recurrent major depressive disorder, without psychotic features F33.2 Active 82981657 Problem History of gastric bypass Z98.84 Active 858380 005 Problem Essential hypertension I10 Active 52684284 Problem Varicose veins of both lower extremities with pain I83.813 Active 50659584 Problem Tension headache G44.209 Active 912289936 Problem Vitamin D deficiency E55.9 Active 93799032 Problem Insomnia, unspecified type G47.00 Active 18933 2000 Problem Panic disorder F41.0 Active 292519810 Problem Gastroesophageal reflux disease, esophagitis pre sence not specified K21.9 Active 050503985 Problem Otitis externa of left ear, unspecified chronici ty, unspecified type H60.92 Active 0990727 Problem Sinusitis J32.9 Active 65457621 Problem HTN, goal below 130/80 I10 Active 12089172 Problem Allergic rhinitis due to pollen, unspecified seasonality J30.1 Active 51974393 Problem Generalized anxiety disorder F41.1 Active 218 65513 Problem Connective tissue disease, 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 Active 170628334 Problem Other allergic rhinitis J30.89 Active 21977259 Problem DUNIA (obstructive sleep apnea) G47.33 Active 78 663041 Problem Degenerative disc disease, cervical M50.30 Acti ve 97477580 Problem Lipid screening Z13.220 Active 699200143 Problem [place] exposure Z20.828 Active 564518598 Problem Canker sores oral K12.0 Active 947845155 ALLERGIES Allergen (clinical drug ingredient) Drug/Non Drug Allergy do cumented on EMR Reaction Allergy Type Onset Date Status Latex (for allergy use only) Rash Drug Allergy Active Adhesive Tape Hives Drug Allergy Active Guaifenesin high heart rate Drug Allergy Active morphine Morphine Sulfate([facility] Code:[address]-30) Dyspnea Drug A llergy Active Trazodone Migraine Non Drug Allergy Active IV Dye Hives Drug Allergy Active metoclopramide Reglan([facility] Code:[address]-67) Rash Drug Allergy Active Mylanta hives, breathing difficulties and chest pain Dr ug Allergy Active ENCOUNTERS from 1982 to 2020-04-25 Encounter Location Date Provider Diagnosis [address] [address] Apr, Katty Kamara Connective tissue disease, undifferentia nida M35.9 ; Arthralgia, unspecified joint M25.50 ; Epidemic myalgia B33.0 ; Degenerative disc disease, cervical M50.30 ; Generalized anxiety disorder F41.1 ; HTN, goal below 130/80 I10 ; Tension headache G44.209 ; Vitamin D deficiency E55.9 ; Canker sores oral K12.0 ; Iron deficiency anemia, unspecified iron deficiency anemia type D50.9 ; Insomnia, unspecified type G47.00 ; Allergic rhinitis due to pollen, unspecified seasonality J30.1 and Lipid screening Z13.220 IMMUNIZATIONS Vaccine Route Administration Date Status TDAP 0.5mL (Boostrix) IM Intramuscular Apr 14, 2019 Administe red Influenza (6mo & up) Fluzone Unknown May 27, 2017 Oth ers Influenza (6mo & up) Fluzone IM Intramuscular Apr 02, 2016 Ad ministered Influenza (6mo & up) Fluzone Unknown Apr 14, 2015 Ref used Influenza (6mo & up) Fluzone Unknown Jan 13, 2015 Ref used Influenza (6mo & up) Fluzone IM Intramuscular May 04, 2013 Ad ministered Influenza (6mo & up) Fluzone Unknown Apr 02, 2011 Adm inistered zz*Influenza Preservative Free (36 months & up) IM Intramuscular Apr 16, 2012 Administered SOCIAL HISTORY Tobacco Use: Social History Observation Description Date Details (start date - stop date) Never Smoker Sex Assigned At : Social History Observation Description Sex Assigned At Female Education: Question Answer Notes Level of Education: BS MS not finished y et Audit Question Answer Notes Total Score: 0 Interpretation: Alcohol Education Language: Question Answer Notes Languages spoken: Maori Yazdanism: Question Answer Notes Yazdanism 08 [employer] Sexual Hx: Question Answer Notes Had sex in the last 12 months (vaginal, oral, or anal)? Yes Have you ever had an STD? No Prevention Strategies discussed: Other with Both Men and Women Use protection? Yes How often? All of the time Drug and Alcohol Question Answer Notes Total Score: 0 Interpretation: No problems reported BMI Care Goal Follow-Up Question Answer Notes Above Normal BMI Follow-Up Dietary management educatio n, guidance, and counseling Tobacco Use: Question Answer Notes Are you a: never smoker REASON FOR REFERRAL No Information VITAL SIGNS No information MEDICATIONS Medication SIG (Take, Route, Frequency, Duration) Notes Start Da te End Date Status Meloxicam 7.5 MG 1 tablet Orally bid for 90 days Active Ambien 5 MG 1 tablet at bedtime Orally Once a day for 30 days Active Imitrex 50 MG 1 tab(s) Orally at the first sign of migraine headache. May repeat in 2hrs if pain persists (do not exceed 2 tabs/24hrs) for 30 days Active PredniSONE 10 MG 1 tablet as directed Orally 4 tabs x 3 days 3 tabs x 3 days 2 tabs x 3 days 1 tab x 3 days for 12 days Active Levocetirizine Dihydrochloride 5 MG 1 tablet in the ev ening Orally Once a day for 90 days Active Triamcinolone Acetonide 0.1 % 1 application to oral le wanda Mouth/Throat Twice a day for 30 Days Active PROCEDURES No Information RESULTS No Results REASON FOR VISIT See also note of 04/04/2020 not seen then, but note flipped to then MEDICAL (GENERAL) HISTORY Type Description Date Medical History JOESPH Medical History Asthma Medical History Allergic Rhinitis Medical History Migraines Medical History Vitamin D defiency Medical History biliary colic Medical History R ear tinnitus Medical History External hemorrhoids Medical History Stress incontinence Medical History Neck stiffness/spasms Medical History IBS Medical History GERD Medical History S/p Bariatric surgery Medical History Depression - previously following w/ Dr. Eason Medical History Intermittent hypokalemia Medical History DUNIA - Non-CPAP compliant Medical History Gestational Diabetes last 9yrs. ago, not c last baby 6 yrs. ago Medical History Cervical herniated disc dis. of C 5-[address] Interiano Surgical History Arthrotomy - L wrist 2006 Surgical History T&A Surgical History lap cholecystectomy 12/2010 Surgical History bariatric surgery 09/09/16 Surgical History EGD - Hetal pt reports WNL 11/2017 Surgical History venous ablation 05/2018 Surgical History stab phlebectomy 05/2018 Surgical History EGD-Hetal Lopez 08/28/2018 Surgical History bilateral carpal tunnel 12/2019 Hospitalization History childbirth 03/2010 Hospitalization History Dehydration ([facility]) 1984 Hospitalization History childbirth 07/10/2012 Hospitalization History dehydration/low blood sugar 09/2016 Hospitalization History pancreatitis/hypokalemia HETAL 09/08 11/23 Hospitalization History [facility] - depression 01/2018 Goals Section No Information Health Concerns No Information MEDICAL EQUIPMENT No Information MENTAL STATUS No Information FUNCTIONAL STATUS No Information ASSESSMENTS Encounter Date Diagnosis Assessment Notes Treatment Notes Treatm ent Clinical Notes Apr, Connective tissue disease, undifferentiated (ICD -10 - M35.9) SCL 70 3.5, DR. Castillo following pt. Apr, Arthralgia, unspecified joint (ICD-10 - M25.50) She has seen rheum. is having worsening of symps. again has f/u 05/[address] Castillo so far no rx started. WIll renew pred., but asked her to consult Dr. Castillo also to be sure okay. Also completed handicapped forms for license. Favor Fibromyalgia, but Rheum. working up & to manage. Apr, Epidemic myalgia (ICD-10 - B33.0) Lab.s reviewed c pt. by BS negative except for the one SCL 70 Apr, Degenerative disc disease, cervical (ICD-10 - M5 0.30) Per Katty's notes pt had , used steroid Dr. Interiano in [place], but had oral steroids, trigger pt. inj. he declines surgery for now. intermitttent use of nsaid humphries-2 c caution 2 Gastric bypass. per her provider' Apr, Generalized anxiety disorder (ICD-10 - F41.1) Sees she weaned off Effexor XR while planning to have surgery & then had the flu so stopped it, she uses Adderal XR for certain days not on weekends. She uses xanax for procedures, mri's. Apr, HTN, goal below 130/80 (ICD-10 - I10) Fair at home okay when in ER recently. Apr, Tension headache (ICD-10 - G44.209) Related to neck muscle tension c neck ache continued, Related to neck muscle tension c neck ache continued, she is on day 3 of a headache now. Apr, Vitamin D deficiency (ICD-10 - E55.9) Takes fortified calc., D OJ, takes flinstones Apr, Canker sores oral (ICD-10 - K12.0) resolved Apr, Iron deficiency anemia, unsp ecified iron deficiency anemia type (ICD-10 - D50.9) ferr. 11, H&H low s/p gastric bypass off her vitamin supplements Apr, Insomnia, unspecified type (ICD-10 - G47.00) Apr, Allergic rhinitis due to kitty hunter, unspecified seasonality (ICD-10 - J30.1) Apr, Lipid screening (ICD-10 - Z13.220) PLAN OF TREATMENT Medication Medication Name Sig Start Date Stop Date Meloxicam 7.5 MG 1 tablet Orally bid for 90 days Levocetirizine Dihydrochloride 5 MG 1 tablet in the ev ening Orally Once a day for 90 days Triamcinolone Acetonide 0.1 % 1 application to oral le wanda Mouth/Throat Twice a day for 30 Days PredniSONE 10 MG 1 tablet as directed Orally 4 tabs x 3 days 3 tabs x 3 days 2 tabs x 3 days 1 tab x 3 days for 12 days Ambien 5 MG 1 tablet at bedtime Orally Once a day for 30 day s Imitrex 50 MG 1 tab(s) Orally at the first sign of migraine headache. May repeat in 2hrs if pain persists (do not exceed 2 tabs/24hrs) for 30 days Treatment Notes Assessment Notes Clinical Notes Connective tissue disease, undifferentiated SCL 70 3.5, DR. Castillo following pt. Arthralgia, unspecified joint She has se en rheum. is having worsening of symps. again has f/u 05/[address] Castillo so far no rx started. WIll renew pred., but asked her to consult Dr. Castillo also to be sure okay. Also completed hand icapped forms for license. Favor Fibromyalgia, but Rheum. working up & to manage. Epidemic myalgia Lab.s reviewed c pt. by BS negative except for the one SCL 70 Degenerative disc disease, cervical Per Katty's notes pt had , used steroid Dr. Interiano in [place], but had oral steroids, trigger pt. inj. he declines surgery for now.intermitttent use of nsaid humphries-2 c caution 2 Gastric bypass. per her provider' Generalized anxiety disorder Sees Dr.Uhl acuna she weaned off Effexor XR while planning to have surgery & then had the flu so stopped it, she uses Adderal XR for certain days not on weekends. She uses xanax for procedures, mri's. HTN, goal below 130/80 Fair at home okay when in ER recently. Tension headache Related to neck musc le tension c neck ache continued, Related to neck muscle tension c neck ache continued, she is on day 3 of a headache now. Vitamin D deficiency Takes fortified jacqueline c., D OJ, takes flinstones Canker sores oral resolved Iron deficiency anemia, unspecified iron deficiency anemia t ype ferr. 11, H&H low s/p gastric bypass off her vitamin supplements Next Appt Details 3 Months c SS, BW ordered Reason: Provider Name:Katty Kamara, 07-13 09:30:00 AM, [address] [place], [address], Insurance Providers Payer Name Payer Address Payer Phone Insured Name Patient Relati onship to Insured Coverage Start Date Coverage End Date [facility] [id number] [facility] [address] [employer] [id number]
--- OUTSIDE RECORDS SUMMARY | 2020-07-24 15:18 | CCD | Continuity of Care Document ---
Author Author Emely WETZEL DO Organization Unknown Address [address], [address] [place] [address] Phone [phone] Care Team Providers Care Rubber Down Name Role Phone Brianna Carrasquillo MS [employer]-CREASING MACHINE OPERATOR AUTM Katty Kamara AUTM [phone] Problems Description No Information Available Social History Type Date Description Comments Sex Unknown Tobacco Use Start: Unknown Patient has never smoked (pipe, cigarette, cigar) Allergies, Adverse Reactions, Alerts Active Allergies Reaction Severity Comments Date Morphine 05/24/2020 Mylanta 05/24/2020 Adhesives 05/24/2020 Reglan 05/24/2020 Medications Active Medications SIG Qnty Indications Ordering Provide r Date Dexilant 60mg Capsules DR 1 by mouth every day 30caps Brianna Handy NP 05/01 Meloxicam 7.5mg Tablets TK 1 T PO bid Unknown Amphetamine-Dextroamphet ER 15mg Caps ER 24HR Unknown Zolpidem Tartrate 10mg Tablets Take 1 Tablet By Mouth In The Evening Directed Maximum Daily Dose Is 1 Tablet Unknown Propranolol HCL 20mg Tablets TK 1 T PO bid prn Unknown Xyzal Allergy 24HR 5mg Tablets 1 by mouth every day Unknown Effexor XR 75mg Caps ER 24HR 1 by mouth every day Unknown Hydroxychloroquine Sulfate 200mg T ablets Unknown Imitrex 25mg Tablets 1 tab by mouth x 1, then repeat dose x1 after 2 hours if needed for headache Unknown Albuterol Sulfate HFA 108(90Base) mcg/Act Aerosol inhale 2 puff by inhalation route every 4 - 6 hours needed Unknown Atrovent HFA 17mcg/Act Aerosol inhale 2 puffs every 6 hours needed Unknown Xopenex HFA 45mcg/Act Aerosol inhale 2 puff (90mcg) by inhalation route every 6 hours U nknown Immunizations Description No Information Available Vital Signs Description No Information Available Results Description No Information Available Procedures Description No Information Available Medical Devices Description No Information Available Encounters Type Date Location Provider Dx Diagnosis Office Visit 05/24/2020 1:30p [facility] Surgical Services Cruz Wetzel DO Z98.84 Bariatric surgery status K21.9 Gastro-esophageal reflux dis ease without esophagitis Assessments Date Code Description Provider 05/24/2020 Z98.84 Bariatric surgery status Cruz Wetzel DO 05/24/2020 K21.9 Gastro-esophageal reflux disease without esophagitis Cruz Wetzel DO Plan of Treatment Future Appointment(s):* 07/20/2020 11:30 am - Cruz Wetzel DO at [facility] Surgical Services 05/24/2020 - Cruz Wetzel DO* Z98.84 Bariatric surgery status * K21.9 Gastro-esophageal reflux disease without esophagitis* Comments:* This appointment was completed via telemedicine. Two factor authentication was c onfirmed with name and . Verbal consent to participate in telemedicine visit was obtained. The patient is currently in [facility]. Patient was informed that visit was not recorded, taped or kept on file. There was no scribe present. Patient was informed that they have the right to the same confidentiality with telehealth under the same laws that protect confidentiality of their medical record information for in-person treatment. Any information disclosed by them during the course of their treatment is confidential. Patient was informed that there is no one else that can overhear the conversation in the office. Patient states that the following people were with them to overhear their conversation:Total time spent on telemedicine was: 14 minutes.Patient clearly has a lot on her plate. I would like her to continue to take and excellent once a day. I told her if she has breakthrough symptoms at night she did try some [id number]-jpw-forfzns Zantac. At some point I will like to do another endoscopy on her. We did discuss the possibility of converting her sleeve to bypass of her reflux continues to worsen. With all she has going on I would like to hold off for now Functional Status Description No Information Available Mental Status Description No Information Available Referrals Description No Information Available
--- OUTSIDE RECORDS SUMMARY | 2020-07-24 15:18 | CCD | Continuity of Care Document ---
Author Author Emely WETZEL DO Organization Unknown Address [address], [address] [place] [address] Phone [phone] Care Team Providers Care Crab Butcher Name Role Phone Brianna Carrasquillo MS RNC-HIGHWAY ENGINEERING TEACHER AUTM [phone] Katty Kamara AUTM [phone] Problems Description No Information Available Social History [...] Provider Dx Diagnosis Office Visit 05/24/2020 1:30p [facility] Surgical Services Cruz Wetzel DO Z98.84 Bariatric surgery status K21.9 Gastro-esophageal reflux dis ease without esophagitis Assessments Date Code Description Provider 05/24/2020 Z98.84 Bariatric surgery status Cruz Wetzel DO 05/24/2020 K21.9 Gastro-esophageal reflux disease without esophagitis Cruz Wetzel DO Plan of Treatment Future Appointment(s):* 07/20/2020 11:30 am - Cruz Wetzel DO at [facility] Surgical Services 05/24/2020 - Cruz Wetzel DO* Z98.84 Bariatric surgery status * K21.9 Gastro-esophageal reflux disease without esophagitis* Comments:* This appointment was completed via telemedicine. Two factor authentication was c onfirmed with name and . Verbal consent to participate in telemedicine visit was obtained. The patient is currently in [facility]. Patient was informed that visit was [...] symptoms at night she did try some pvnv-rbu-fnkoqpz Zantac. At some point I will like [...]
--- OUTSIDE RECORDS SUMMARY | 2020-07-24 15:18 | CCD | Continuity of Care Document ---
Author Author Emely WETZEL DO Organization Unknown Address [address], [address] [place] [address] Phone [phone] Care Team Providers Care Boat Laborer Name Role Phone Brianna Carrasquillo MS RNC-PIVOT MAKER AUTM [phone] Katty Kamara AUTM [phone] Problems Description No Information Available Social History [...] Provider Dx Diagnosis Office Visit 05/24/2020 1:30p [facility] Surgical Services Cruz Wetzel DO Z98.84 Bariatric surgery status K21.9 Gastro-esophageal reflux dis ease without esophagitis Assessments Date Code Description Provider 05/24/2020 Z98.84 Bariatric surgery status Cruz Wetzel DO 05/24/2020 K21.9 Gastro-esophageal reflux disease without esophagitis Cruz Wetzel DO Plan of Treatment Future Appointment(s):* 07/20/2020 11:30 am - Cruz Wetzel DO at [facility] Surgical Services 05/24/2020 - Cruz Wetzel DO* Z98.84 Bariatric surgery status * K21.9 Gastro-esophageal reflux disease without esophagitis* Comments:* This appointment was completed via telemedicine. Two factor authentication was c onfirmed with name and . Verbal consent to participate in telemedicine visit was obtained. The patient is currently in [facility]. Patient was informed that visit was not [...] symptoms at night she did try some wwkv-fyz-eviebek Zantac. At some point I will like [...]
--- OUTSIDE RECORDS SUMMARY | 2020-07-24 15:18 | CCD | Continuity of Care Document ---
Author Author Emely CUMMINS [place] Organization Unknown Address [address] [place] [address] Phone [phone] Care Team Providers Care Chopper Gun Operator Name Role Phone [facility] AUTM [phone] Problems Description No Information Available Social History [...] SIG Qnty Indications Ordering Provide r Date Qeetzixa-Vothuhfdd-MI 1% Solution instill 4 drops to affected [...] Injection 2 Or More Injection Joy Hensley, [facility] 09/09/2013 Allergy Injection 2 Or More Injection Joy Hensley, [facility] 07/29/2013 Allergy Injection 2 Or More Injection Burak Wood, P.A. 07/20/2013 Allergy Injection 2 Or More Injection Burak Wood, P.A. 07/11/2013 Allergy Injection 2 Or More Injection Joy Hensley, [facility] 07/01/2013 Allergy Injection 2 Or More Injection Tejas Kay, P.A. 04/14/2013 Allergy Injection 2 Or More Injection Joy Hensley, [facility] 04/01/2013 Allergy Injection 2 Or More Injection Burak Wood, P.A. 10/30/2012 Allergy Injection 2 Or More Injection Tejas Kay, PBayA. 10/10/2012 Allergy Injection 2 Or More Injection Rodrigo Tha Barahona, P.A. 09/30/2012 Allergy Injection 2 Or More Injection Joy Fernie Hensley, [facility] 09/17/2012 Allergy Injection 2 Or More Injection Tejas Kay, P.A. 09/03/2012 Allergy Injection 2 Or More Injection Joy Fernie Hensley, [facility] 08/24/2012 Allergy Injection 2 Or More [...] H60.313 Diffuse otitis externa, bilateral* New Medication:* Vdsfdabl-Rfcnmqkah-ZC 1 % - instill 4 drops to affected ear three times per day for seven days (both ears) * Comments:* Protect ears from water/Q-tips Functional Status Description No Information Available Mental Status Description No Information Available Referrals Description No Information Available
--- OUTSIDE RECORDS SUMMARY | 2020-07-24 15:18 | CCD ---
Author Author [facility] em[facility] Organization [facility] ems Address Unknown Phone Unavailable Care Team Providers Care Senior Category Manager Name Role Phone Katty Kamara Unavailable PROBLEMS Type Condition ICD9-CM Code [id number] Code Onset Dates Condition S tatus SNOMED Code Notes Problem BMI 40.0-44.9, adult Z68.41 Active 954956289 Problem Migraine without aura and without status migrain osus, not intractable G43.009 Active 716011149 Problem Mild persistent asthma without complication J45.30 Active 233916162 Problem Iron deficiency anemia, unspecified iron deficiency an emia type D50.9 Active 69902458 Problem Severe episode of recurrent major depressive disorder, without psychotic features F33.2 Active 75831207 Problem History of gastric bypass Z98.84 Active 720293 005 Problem Essential hypertension I10 Active 96960714 Problem Varicose veins of both lower extremities with pain I83.813 Active 95546902 Problem Tension headache G44.209 Active 285991368 Problem Vitamin D deficiency E55.9 Active 61846012 Problem Insomnia, unspecified type G47.00 Active 98204 2000 Problem Panic disorder F41.0 Active 293363313 Problem Gastroesophageal reflux disease, esophagitis pre sence not specified K21.9 Active 733480704 Problem Otitis externa of left ear, unspecified chronici ty, unspecified type H60.92 Active 8388622 Problem Sinusitis J32.9 Active 22079959 Problem HTN, goal below 130/80 I10 Active 55635427 Problem Allergic rhinitis due to pollen, unspecified seasonality J30.1 Active 39739370 Problem Generalized anxiety disorder F41.1 Active 218 16368 Problem Connective tissue disease, 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 Active 287570782 Problem Other allergic rhinitis J30.89 Active 85866559 Problem DUNIA (obstructive sleep apnea) G47.33 Active 78 887591 Problem Degenerative disc disease, cervical M50.30 Acti ve 38610592 Problem Lipid screening Z13.220 Active 253105004 Problem [place] exposure Z20.828 Active 425171047 Problem Canker sores oral K12.0 Active 544092884 ALLERGIES Allergen (clinical drug ingredient) Drug/Non Drug Allergy do cumented on EMR Reaction Allergy Type Onset Date Status Latex (for allergy use only) Rash Drug Allergy Active Adhesive Tape Hives Drug Allergy Active Guaifenesin high heart rate Drug Allergy Active morphine Morphine Sulfate([facility] Code:[address]-65) Dyspnea Drug A llergy Active Trazodone Migraine Non Drug Allergy Active IV Dye Hives Drug Allergy Active metoclopramide Reglan([facility] Code:[address]-59) Rash Drug Allergy Active Mylanta hives, breathing difficulties and chest pain Dr ug Allergy Active ENCOUNTERS from 1982 to 2020-04-24 Encounter Location Date Provider Diagnosis [address] [address] 27 Mar, 2020 Katty Kamara Connective tissue disease, undifferentia nida [...] Education Language: Question Answer Notes Languages spoken: Lao Sabianism: Question Answer Notes Sabianism 08 Ep[employer] Sexual Hx: Question Answer Notes Had sex [...] REASON FOR REFERRAL No Information VITAL SIGNS Weight 149 lbs Mar, Height 64 in Mar, BMI 25.57 kg/m2 Mar, Heart Rate 112 /min Mar, Respiratory Rate 18 /min Mar, Temperature 97.9 degrees Fahrenheit Mar, Oximetry 99 Mar, Blood pressure systolic 112 mm Hg Mar, Blood pressure diastolic 78 mm Hg Mar, MEDICATIONS Medication SIG (Take, Route, Frequency, Duration) [...] 30 Days Active PROCEDURES No Information RESULTS REASON FOR VISIT MED/ PT. seen on 04/11/2020; computer glitched & changed to entirely diff. visit date wasn't there that date MEDICAL (GENERAL) HISTORY Type Description Date Medical [...] herniated disc dis. of C 5-6 fo [facility] Interiano Surgical History Arthrotomy - L wrist 2006 Surgical History T&A Surgical History lap cholecystectomy 12/2010 Surgical History bariatric surgery 09/09/16 Surgical History EGD - Hetal pt reports WNL 11/2017 Surgical History venous ablation 05/2018 Surgical History stab phlebectomy 05/2018 Surgical History EGD-Dr. Toussaint, Hetal 08/28/2018 Surgical History bilateral carpal tunnel 12/2019 Hospitalization History childbirth 03/2010 Hospitalization History Dehydration ([facility]) 1985 Hospitalization History childbirth 07/10/2012 Hospitalization History dehydration/low blood sugar 09/2016 Hospitalization History pancreatitis/hypokalemia [facility]AL 09/08 11/23 Hospitalization History [facility] - depression 01/2018 Goals Section No Information Health Concerns No Information MEDICAL EQUIPMENT No Information MENTAL STATUS No Information FUNCTIONAL STATUS No Information ASSESSMENTS Encounter Date Diagnosis Assessment Notes Treatment Notes Treatm ent Clinical Notes Mar, Connective tissue disease, undifferentiated (ICD -10 - M35.9) SCL 70 3.5, DR. Castillo following pt. Mar, Arthralgia, unspecified joint (ICD-10 - M25.50) She has seen rheum. is having worsening of symps. again has f/u 05/[address] Castillo so far no rx started. WIll renew pred., but asked her to consult Dr. Castillo also to be sure okay. Also completed handicapped forms for license. Favor Fibromyalgia, but Rheum. working up & to manage. Mar, Epidemic myalgia (ICD-10 - B33.0) Lab.s reviewed c pt. by BS negative except for the one SCL 70 Mar, Degenerative disc disease, cervical (ICD-10 - M5 0.30) Per Katty's notes pt had , used steroid Dr. Interiano in [place], but had oral steroids, trigger pt. inj. he declines surgery for now. intermitttent use of nsaid humphries-2 c caution 2 Gastric bypass. per her provider' Mar, Generalized anxiety disorder (ICD-10 - F41.1) Sees she weaned off Effexor XR while planning to have surgery & then had the flu so stopped it, she uses Adderal XR for certain days not on weekends. She uses xanax for procedures, mri's. Mar, HTN, goal below 130/80 (ICD-10 - I10) Fair at home okay when in ER recently. Mar, Tension headache (ICD-10 - G44.209) Related to neck muscle tension c neck ache continued, Related to neck muscle tension c neck ache continued, she is on day 3 of a headache now. Mar, Vitamin D deficiency (ICD-10 - E55.9) Takes fortified calc., D OJ, takes flinstones Mar, Canker sores oral (ICD-10 - K12.0) resolved Mar, Iron deficiency anemia, unsp ecified iron deficiency anemia type (ICD-10 - D50.9) ferr. 11, H&H low s/p gastric bypass off her vitamin supplements Mar, Insomnia, unspecified type (ICD-10 - G47.00) Mar, Allergic rhinitis due to kitty hunter, unspecified seasonality (ICD-10 - J30.1) Mar, Lipid screening (ICD-10 - Z13.220) Mar, Other This visit is i n error it was done 04/11/2020 so no charges on 04/04/2020. PLAN OF TREATMENT Medication Medication Name Sig [...] had , used steroid Dr. Interiano in [place], but had oral steroids, trigger pt. inj. [...] Takes fortified jacqueline c., D OJ, takes flinstonchantel Canker sores oral resolved Iron deficiency anemia, unspecified iron deficiency anemia t ype ferr. 11, H&H low s/p gastric bypass off her vitamin supplements Future Test Test Name Order Date LIPID PANEL (CARDIAC RISK) [id number] Comprehensive Metabolic Profile (CMP) [id number] CBC with Differential [id number] IRON (FE) [id number] FERRITIN [id number] FREE T4 & TSH PANEL [id number] VITAMIN D 25-HYDROXY [id number] PTH INTACT [id number] VITAMIN B12 LEVEL [id number] Next Appt Details Provider Name:Katty Kamara, 07-13 09:30:00 AM, [address] [place], [address], Insurance Providers Payer Name Payer Address Payer Phone Insured Name Patient Relati onship to Insured Coverage Start Date Coverage End Date [facility] [id number] [facility] [phone] GUILLE GAYLE [id number]
--- OUTSIDE RECORDS SUMMARY | 2020-07-24 15:18 | CCD ---
Author Author [facility] Organization [facility] Address Unknown Phone Unavailable Care Team Providers Care In Service Coordinator Name Role Phone Katty Kamara Unavailable PROBLEMS Type Condition ICD9-CM Code MLB63-QI Code Onset Dates Condition S tatus W/U Status Risk SNOMED Code Notes Problem Mild persistent asthma without complication J45.30 Active confirmed 054602995 Problem BMI 40.0-44.9, adult Z68.41 Active confirmed 857109828 Problem Other allergic rhinitis J30.89 Active confirmed 17189307 Problem Migraine without aura and without status migrain osus, not intractable G43.009 Active confirmed 121198917 Problem Otitis externa of left ear, unspecified chronici ty, unspecified type H60.92 Active confirmed 6727083 Problem Iron deficiency anemia, unspecified iron deficiency an emia type D50.9 Active confirmed 24066182 Problem Tension headache G44.209 Active confirmed 39 7672745 Problem History of gastric bypass Z98.84 Active confirmed 097253196 Problem Insomnia, unspecified type G47.00 Active confirmed 036995367 Problem Varicose veins of both lower extremities with pain I83.813 Active confirmed 37895261 Problem Gastroesophageal reflux disease, esophagitis pre sence not specified K21.9 Active confirmed 162333497 Problem Vitamin D deficiency E55.9 Active confirmed 27823140 Problem Severe episode of recurrent major depressive disorder, without psychotic features F33.2 Active confirmed 89185244 Problem Panic disorder F41.0 Active confirmed 32002 1005 Problem Sinusitis J32.9 Active confirmed 75974641 Problem HTN, goal below 130/80 I10 Active confirmed 27399586 Problem Degenerative disc disease, cervical M50.30 Acti ve confirmed 11267709 Problem Connective tissue disease, 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 Active confirmed 305 229346 Problem Door exposure Z20.828 Active confirmed 64153 7005 Problem Canker sores oral K12.0 Active confirmed 42 4221586 Problem Allergic rhinitis due to pollen, unspecified seasonality J30.1 Active confirmed 85610626 ALLERGIES Allergen (clinical drug ingredient) Drug/Non Drug Allergy do cumented on EMR Reaction Allergy Type Onset Date Status Latex (for allergy use only) Rash Drug Allergy Active Adhesive Tape Hives Drug Allergy Active Guaifenesin high heart rate Drug Allergy Active morphine Morphine Sulfate([facility] Code:[address]-59) Dyspnea Drug A llergy Active Trazodone Migraine Non Drug Allergy Active IV Dye Hives Drug Allergy Active metoclopramide Reglan([facility] Code:[address]-90) Rash Drug Allergy Active Mylanta hives, breathing difficulties and chest pain Dr darshana Allergy Active ENCOUNTERS from 1982 to 2020-07-20 Encounter Location Date Provider Diagnosis [address] [address] 04 Jul, 2020 Katty Kamara Connective tissue disease, undifferentia [...] rhinitis due to pollen, unspecified seasonality J30.1 ; Lipid screening Z13.220 and S/P gastric bypass Z98.84 IMMUNIZATIONS Vaccine Route Administration Date Status TDAP [...] Education Language: Question Answer Notes Languages spoken: Khmer Roman Catholic: Question Answer Notes Roman Catholic 08 [place] Sexual Hx: Question Answer Notes Had sex [...] FOR REFERRAL No Information VITAL SIGNS Weight 157 lbs Jul, Height 64 in Jul, BMI 26.95 kg/m2 Jul, Heart Rate 110 /min Jul, Respiratory Rate 18 /min Jul, Temperature 98.2 degrees Fahrenheit Jul, Oximetry 99 Jul, Blood pressure systolic 120 mm Hg Jul, Blood pressure diastolic 70 mm Hg Jul, MEDICATIONS Medication SIG (Take, Route, Frequency, Duration) Notes Start Da te End Date Status Meloxicam 7.5 MG 1 tablet Orally bid for 90 Active Imitrex 50 MG 1 tab(s) Orally at the first sign of migraine headache. May repeat in 2hrs if pain persists (do not exceed 2 tabs/24hrs) for 30 days Active Ambien 5 MG 1 tablet at bedtime Orally Once a day for 30 days Active Triamcinolone Acetonide 0.1 % 1 application to oral le wanda Mouth/Throat Twice a day for 30 Days Active Plaquenil 200 MG 1.5tablets Orally Daily for 30 Days 2020 Active Dexilant 60 MG 1 capsule Orally Once a day for 30 day(s) Active Effexor XR 75 MG 1 capsule with food Orally Once a day Active Levocetirizine Dihydrochloride 5 MG 1 tablet in the ev ening Orally Once a day for 90 Active Concerta 27 MG 1 tablet in the morning Orally Once a day Active Plaquenil 200 MG 1 1/2 tabs Orally Daily Active Propranolol HCl 20 MG 1/2 tab Orally Once a day Active PROCEDURES No Information RESULTS No Results REASON FOR VISIT 3 month MEDICAL (GENERAL) HISTORY Type Description Date Medical [...] herniated disc dis. of C 5-6 fo [facility] Inter[facility] Surgical History Arthrotomy - L [...] Notes Treatment Notes Treatm ent Clinical Notes Jul, Connective tissue disease, undifferentiated (ICD -10 - M35.9) SCL 70 3.5, DR. Castillo following pt. Jul, Arthralgia, unspecified joint (ICD-10 - M25.50) Follows c Dr. Castillo also to be sure okay. Also completed handicapped forms for license. Favor Fibromyalgia, but Rheum. working up & to manage. Jul, Epidemic myalgia (ICD-10 - B33.0) Lab.s reviewed c pt. by BS negative except for the one SCL 70 Jul, Degenerative disc disease, cervical (ICD-10 - M5 0.30) NO dyspepsia or hematochezia, melena intermitttent use of nsaid humphries-2 c caution 2 Gastric bypass. per her provider Jul, Generalized anxiety disorder (ICD-10 - F41.1) Sees she weaned off Effexor XR & Concerta, off Adderal XR She uses xanax for Dental procedures, mri's. Jul, HTN, goal below 130/80 (ICD-10 - I10) 120/70 Controlled on diet, on propranolol for headaches 04/2020 wbc 5.0, H&H 11.9&37.0, plats. 269k Jul, Tension headache (ICD-10 - G44.209) NO change, uses prn rare tizanidine qhs b/c it knocks her out Jul, Vitamin D deficiency (ICD-10 - E55.9) Uses trandermal multivit. calc., D OJ 04/2020 vit. D 29.5, pth i 94.4 Jul, Canker sores oral (ICD-10 - K12.0) resolved Jul, Iron deficiency anemia, unsp ecified iron deficiency anemia type (ICD-10 - D50.9) ferr. 11, H&H low s/p gastric bypass off her vitamin supplements 04/2020 iron93, ferr 6, vit. b123 371 Jul, Insomnia, unspecified type (ICD-10 - G47.00) Jul, Allergic rhinitis due to kitty hunter, unspecified seasonality (ICD-10 - J30.1) Jul, Lipid screening (ICD-10 - Z13.220) 04/2020 Ldl 115/HDL 84/TG 76 04/2020 Na 143, K3.9, bun/c4 18/0.77, gluc 82, calc. 8.8, ast 12, alt 14 Jul, S/P gastric bypass (ICD-10 - Z98.84) PLAN OF TREATMENT Medication Medication Name Sig Start Date Stop Date Meloxicam 7.5 MG 1 tablet Orally bid for 90 Concerta 27 MG 1 tablet in the morning Orally Once a day Plaquenil 200 MG 1.5tablets Orally Daily for 30 Days Jul, Levocetirizine Dihydrochloride 5 MG 1 tablet in the ev ening Orally Once a day for Imitrex 50 MG 1 tab(s) Orally at the first sign of migraine headache. May repeat in 2hrs if pain persists (do not exceed 2 tabs/24hrs) for 30 days Effexor XR 75 MG 1 capsule with food Orally Once a day Ambien 5 MG 1 tablet at bedtime Orally Once a day for 30 day s Triamcinolone Acetonide 0.1 % 1 application to oral le wanda Mouth/Throat Twice a day for 30 Days Treatment Notes Assessment Notes Clinical Notes Connective tissue disease, undifferentiated SCL 70 3.5, DR. Castillo following pt. Arthralgia, unspecified joint Follows c Dr. Castillo also to be sure okay. Also completed handicapped forms for license. Favor Fibromyalgia, but Rheum. working up & to manage. Epidemic myalgia Lab.s reviewed c pt. by BS negative except for the one SCL 70 Degenerative disc disease, cervical NO d yspepsia or hematochezia, melenaintermitttent use of nsaid humphries-2 c caution 2 Gastric bypass. per her provider Generalized anxiety disorder Sees Dr.Uhl acuna she weaned off Effexor XR & Concerta, off Adderal XR She uses xanax for Dental procedures, mri's. HTN, goal below 130/80 120/70 Controlled on diet, on propranolol for rycpfdehl01/2020 wbc 5.0, H&H 11.9&37.0, plats. 269k Tension headache NO change, uses prn rare tizanidine qhs b/c it knocks her out Vitamin D deficiency Uses trandermal mul tivit. calc., D OJ106/2019 vit. D 29.5, pth i 94.4 Canker sores oral resolved Iron deficiency anemia, unspecified iron deficiency anemia t ype ferr. 11, H&H low s/p gastric bypass off her vitamin quoabxzqpxq45/2020 iron93, ferr 6, vit. b123 371 Lipid screening 04/2020 Ldl 115/HDL 84/TG 7604/2020 Na 143, K3.9, bun/c4 18/0.77, gluc 82, calc. 8.8, ast 12, alt 14 Future Test Test Name Order Date VITAMIN B12 LEVEL 20200910 VITAMIN D 25-HYDROXY [id number] IRON (FE) [id number] FERRITIN [id number] Comprehensive Metabolic Profile (CMP) 20200910 CBC with Differential 20200910 MAGNESIUM LEVEL [id number] PTH INTACT 20200910 Next Appt Details 4 Months c SS, labs. in 2M Reason: Provider Name:Katty Ale Kamara, 11-09 07:30:00 AM, [address] [place] [address], [phone], Insurance Providers Payer Name Payer Address Payer Phone Insured Name Patient Relati onship to Insured Coverage Start Date Coverage End Date [facility] [id number] [place] [phone] GUILLE GAYLE [id number]
--- OUTSIDE RECORDS SUMMARY | 2020-07-24 15:19 | CCD ---
Author Author [facility] Organization [facility] Address Unknown Phone Unavailable Support Name Relationship Address Phone [facility] Next Of Kin [address] [place] [address] [facility] Next Of Kin [address] [place] [address] [facility] Next Of Kin [address] [place] [address] [facility] Next [facility] Kin [address] [facility] [address] [place] [address] [employer]TLE[employer] Next Of Kin [address] [place] [address] [employer] Next [place] [address] [address] [place] [address] AVIAGEN Next Of Kin [address] [facility] [address] [place] [address] ESTEFANIA A GIN Next Of Kin [address] [place] [address] [place] [address] [place] Next Of Kin [address] [place] [address] UE Next Of Kin Unknown Unavailable IHC Next Of Kin [address] [place] [address] [employer] [address] [employer] Next Of Kin [address] [place] [address] UN GUILLE GAYLE Next Of Kin [address] [place] [address] [employer] [place] [address] 315- [facility] [employer] Next Of Kin [address] [place] [address] AHRANDARuiz YANIRA Next Of Kin [address] [facility] [place] [address] Tha SINGH Next Of Kin [address] [place] [address] [facility] Next Of Kin [address] [place] [address] Ahlstorm, Yanira ECON [address] [facility] [place] [address] Unavailable AHLSTROM, YANIRA ECON [address] [facility] [place] [address] Unavailable Care Team Providers Care Humanities Professor Name Role Phone Qandah, Basem Jonathan Aziz DO Unavailable Unavailab le Qandah, Basem Jonathan Aziz DO Unavailable Unavailab le Qandah, Basem Jonathan Aziz DO Unavailable Unavailab le Qandah, Basem Jonathan Aziz DO Unavailable Unavailab le Qandah, Basem Jonathan Aziz DO Unavailable Unavailab le Qandah, Basem Jonathan Aziz DO Unavailable Unavailab le Qandah, Basem Jonathan Aziz DO Unavailable Unavailab le Qandah, Basem Jonathan Aziz DO Unavailable Unavailab le Qandah, Basem Jonathan Aziz DO Unavailable Unavailab le Qandah, Basem Jonathan Aziz DO Unavailable Unavailab le Qandah, Basem Jonathan Aziz DO Unavailable Unavailab le Qandah, Basem Jonathan Aziz DO Unavailable Unavailab le Qandah, Basem Jonathan Aziz DO Unavailable Unavailab le Qandah, Basem Jonatahn Aziz DO Unavailable Unavailab le Qandah, Basem Jonathan Aziz DO Unavailable Unavailab le Qandah, Basem Jonathan Aziz DO Unavailable Unavailab le Qandah, Basem Jonathan Aziz DO Unavailable Unavailab le Qandah, Basem Jontahan Aziz DO Unavailable Unavailab le Qandah, Basem Jonathan Aziz DO Unavailable Unavailab le Qandah, Basem Jonathan Aziz DO Unavailable Unavailab le Qandah, Basem Jonathan Aziz DO Unavailable Unavailab le Qandah, Basem Jonathan Aziz DO Unavailable Unavailab le Qandah, Basem Jonathan Aziz DO Unavailable Unavailab le Qandah, Basem Jonathan Aziz DO Unavailable Unavailab le Qandah, Basem Jonathan Aziz DO Unavailable Unavailab le Qandah, Basem Jonathan Aziz DO Unavailable Unavailab le Qandah, Basem Jonathan Aziz DO Unavailable Unavailab le Qandah, Basem Jonathan Aziz DO Unavailable Unavailab le Qandah, Basem Jonathan Aziz DO Unavailable Unavailab le Qandah, Basem Jonathan Aziz DO Unavailable Unavailab le Qandah, Basem Jonathan Aziz DO Unavailable Unavailab le Qandah, Basem Jonathan Aziz DO Unavailable Unavailab le Qandah, Basem Jonathan Aziz DO Unavailable Unavailab le Qandah, Basem Jonathan Aziz DO Unavailable Unavailab le Qandah, Basem Jonathan Aziz DO Unavailable Unavailab le Qandah, Basem Jonathan Aziz DO Unavailable Unavailab le Qandah, Basem Jonathan Aziz DO Unavailable Unavailab le Qandah, Basem Jonathan Aziz DO Unavailable Unavailab le Qandah, Basem Jonathan Aziz DO Unavailable Unavailab le Qandah, Basem Jonathan Aziz DO Unavailable Unavailab le Qandah, Basem Jonathan Aziz DO Unavailable Unavailab le Qandah, Basem Jonathan Aziz DO Unavailable Unavailab le Qandah, Basem Jonathan Aziz DO Unavailable Unavailab le Qandah, Basem Jonathan Aziz DO Unavailable Unavailab le Qandah, Basem Jonathan Aziz DO Unavailable Unavailab le Qandah, Basem Jonathan Aziz DO Unavailable Unavailab le Qandah, Basem Jonathan Aziz DO Unavailable Unavailab le Qandah, Basem Jonathan Aziz DO Unavailable Unavailab le Qandah, Basem Jonathan Aziz DO Unavailable Unavailab le Qandah, Basem Jonathan Aziz DO Unavailable Unavailab le Qandah, Basem Jonathan Aziz DO Unavailable Unavailab le Qandah, Basem Jonathan Aziz DO Unavailable Unavailab le Qandah, Basem Jonathan Aziz DO Unavailable Unavailab le Qandah, Basem Jonathan Aziz DO Unavailable Unavailab le Qandah, Basem Jonathan Aziz DO Unavailable Unavailab le Qandah, Basem Jonathan Aziz DO Unavailable Unavailab le Qandah, Basem Jonathan Aziz DO Unavailable Unavailab le Qandah, Basem Jonathan Aziz DO Unavailable Unavailab le Qandah, Basem Jonathan Aziz DO Unavailable Unavailab le Qandah, Basem Jonathan Aziz DO Unavailable Unavailab le Qandah, Basem Jonathan Aziz DO Unavailable Unavailab le Qandah, Basem Jonathan Aziz DO Unavailable Unavailab le Qandah, Basem Jonathan Aziz DO Unavailable Unavailab le Qandah, Basem Jonathan Aziz DO Unavailable Unavailab le Qandah, Basem Jonathan Aziz DO Unavailable Unavailab le Qandah, Basem Jonathan Aziz DO Unavailable Unavailab le Qandah, Basem Jonathan Aziz DO Unavailable Unavailab le Qandah, Basem Jonathan Aziz DO Unavailable Unavailab le Qandah, Basem Jonathan Aziz DO Unavailable Unavailab le FLOWER, ARI PA Unavailable Unavailable FLOWER, ARI PA Unavailable Unavailable FLOWER, ARI PA Unavailable Unavailable FLOWER, ARI PA Unavailable Unavailable FLOWER, ARI PA Unavailable Unavailable FLOWER, ARI PA Unavailable Unavailable FLOWER, ARI PA Unavailable Unavailable FLOWER, ARI PA Unavailable Unavailable FLOWER, ARI PA Unavailable Unavailable FLOWER, ARI PA Unavailable Unavailable FLOWER, ARI PA Unavailable Unavailable FLOWER, ARI PA Unavailable Unavailable FLOWER, ARI PA Unavailable Unavailable FLOWER, ARI PA Unavailable Unavailable FLOWER, ARI PA Unavailable Unavailable FLOWER, ARI PA Unavailable Unavailable FLOWER, ARI PA Unavailable Unavailable FLOWER, ARI PA Unavailable Unavailable FLOWER, ARI PA Unavailable Unavailable FLOWER, ARI PA Unavailable Unavailable FLOWER, ARI PA Unavailable Unavailable FLOWER, ARI PA Unavailable Unavailable FLOWER, ARI PA Unavailable Unavailable FLOWER, ARI PA Unavailable Unavailable FLOWER, ARI PA Unavailable Unavailable FLOWER, ARI PA Unavailable Unavailable FLOWER, ARI PA Unavailable Unavailable FLOWER, ARI PA Unavailable Unavailable FLOWERARI ERNST PA Unavailable Unavailable FLOWERARI ERNST PA Unavailable Unavailable FLOWERARI ERNST PA Unavailable Unavailable FLOWERARI ERNST PA Unavailable Unavailable FLOWERARI ERNST PA Unavailable Unavailable FLOWERARI ERNST PA Unavailable Unavailable FLOWERARI ERNST PA Unavailable Unavailable FLOWERARI ERNST PA Unavailable Unavailable FLOWERARI PA Unavailable Unavailable FLOWERARI PA Unavailable Unavailable Qandah, Basem Jonathan Aziz DO Unavailable Unavailab le Qandah, Basem Jonathan Aziz DO Unavailable Unavailab le Qandah, Basem Jonathan Aziz DO Unavailable Unavailab le Qandah, Basem Jonathan Aziz DO Unavailable Unavailab le Qandah, Basem Jonathan Aziz DO Unavailable Unavailab le Qandah, Basem Jonathan Aziz DO Unavailable Unavailab le Qandah, Basem Jonathan Aziz DO Unavailable Unavailab le Qandah, Basem Jonathan Aziz DO Unavailable Unavailab le Qandah, Basem Jonathan Aziz DO Unavailable Unavailab le Qandah, Basem Jonathan Aziz DO Unavailable Unavailab le Qandah, Basem Jonathan Aziz DO Unavailable Unavailab le Qandah, Basem Jonathan Aziz DO Unavailable Unavailab le Qandah, Basem Jonathan Aziz DO Unavailable Unavailab le Qandah, Basem Jonathan Aziz DO Unavailable Unavailab le Qandah, Basem Jonathan Aziz DO Unavailable Unavailab le Qandah, Basem Jonathan Aziz DO Unavailable Unavailab le Qandah, Basem Jonathan Aziz DO Unavailable Unavailab le Qandah, Basem Jonathan Aziz DO Unavailable Unavailab le Qandah, Basem Jonathan Aziz DO Unavailable Unavailab le Qandah, Basem Jonathan Aziz DO Unavailable Unavailab le Qandah, Basem Jonathan Aziz DO Unavailable Unavailab le Qandah, Basem Jonathan Aziz DO Unavailable Unavailab le Qandah, Basem Jonathan Aziz DO Unavailable Unavailab le Qandah, Basem Jonathan Aziz DO Unavailable Unavailab le Qandah, Basem Jonathan Aziz DO Unavailable Unavailab le Qandah, Basem Jonathan Aziz DO Unavailable Unavailab le Qandah, Basem Jonathan Aziz DO Unavailable Unavailab le Qandah, Basem Jonathan Aziz DO Unavailable Unavailab le Qandah, Basem Jonathan Aziz DO Unavailable Unavailab le Qandah, Basem Jonathan Aziz DO Unavailable Unavailab le Qandah, Basem Jonathan Aziz DO Unavailable Unavailab le Qandah, Basem Jonathan Aziz DO Unavailable Unavailab le Qandah, Basem Jonathan Aziz DO Unavailable Unavailab le Qandah, Basem Joanthan Aziz DO Unavailable Unavailab le Qandah, Basem Jonathan Aziz DO Unavailable Unavailab le Qandah, Basem Jonathan Aziz DO Unavailable Unavailab le Qandah, Basem Jonathan Aziz DO Unavailable Unavailab le Qandah, Basem Jonathan Aziz DO Unavailable Unavailab le Qandah, Basem Jonathan Aziz DO Unavailable Unavailab le Qandah, Basem Jonathan Aziz DO Unavailable Unavailab le Qandah, Basem Jonathan Aziz DO Unavailable Unavailab le Qandah, Basem Jonathan Aziz DO Unavailable Unavailab le Qandah, Basem Jonathan Aziz DO Unavailable Unavailab le Qandah, Basem Jonathan Aziz DO Unavailable Unavailab le Qandah, Basem Jonathan Aziz DO Unavailable Unavailab le Qandah, Basem Jonathan Aziz DO Unavailable Unavailab le Qandah, Basem Jonathan Aziz DO Unavailable Unavailab le Qandah, Basem Jonathan Aziz DO Unavailable Unavailab le Qandah, Basem Jonathan Aziz DO Unavailable Unavailab le Qandah, Basem Jonathan Aziz DO Unavailable Unavailab le Qandah, Basem Jonathan Aziz DO Unavailable Unavailab le Qandah, Basem Jonathan Aziz DO Unavailable Unavailab le Qandah, Basem Jonathan Aziz DO Unavailable Unavailab le Qandah, Basem Jonathan Aziz DO Unavailable Unavailab le Qandah, Basem Jonathan Aziz DO Unavailable Unavailab le Qandah, Basem Jonathan Aziz DO Unavailable Unavailab le Qandah, Basem Jonathan Aziz DO Unavailable Unavailab le Qandah, Basem Jonathan Aziz DO Unavailable Unavailab le Qandah, Basem Jonathan Aziz DO Unavailable Unavailab le Qandah, Basem Jonathan Aziz DO Unavailable Unavailab le Qandah, Basem Jonathan Aziz DO Unavailable Unavailab le Qandah, Basem Jonathan Aziz DO Unavailable Unavailab le Qandah, Basem Jonathan Aziz DO Unavailable Unavailab le Qandah, Basem Jonathan Aziz DO Unavailable Unavailab le Qandah, Basem Jonathan Aziz DO Unavailable Unavailab le Qandah, Basem Jonathna Aziz DO Unavailable Unavailab le Qandah, Basem Jonathan Aziz DO Unavailable Unavailab le Qandah, Basem Jonathan Aziz DO Unavailable Unavailab le Qandah, Basem Jonathan Aziz DO Unavailable Unavailab le Damian, Payton INSPECTOR [employer] PRODU[employer] Unavailable Unavailable Damian, Payton INSPECTOR CANV[employer] PRODUCTS Unavailable Unavailable Damian, Payton INSPECTOR CANVAS PRODUCTS Unavailable Unavailable Damian, Payton INSPECTOR CANVAS PRODUCTS Unavailable Unavailable Damian, Payton INSPECTOR CANVAS PRODUCTS Unavailable Unavailable Damian, Payton INSPECTOR CANVAS PRODUCTS Unavailable Unavailable Damian, Payton INSPECTOR CANVAS PRODUCTS Unavailable Unavailable Damian, Payton INSPECTOR CANVAS PRODUCTS Unavailable Unavailable Damian, Payton INSPECTOR CANVAS PRODUCTS Unavailable Unavailable Damian, Payton INSPECTOR CANVAS PRODUCTS Unavailable Unavailable Damian, Payton INSPECTOR CANVAS PRODUCTS Unavailable Unavailable Amanda, R Tristan PT Unavailable Unavailable Amanda, R Tristan PT Unavailable Unavailable Amanda, R Tristan PT Unavailable Unavailable Amanda, R Tristan PT Unavailable Unavailable Amanda, R Tristan PT Unavailable Unavailable Amanda, R Tristan PT Unavailable Unavailable Amanda, R Tristan PT Unavailable Unavailable Amanda, R Tristan PT Unavailable Unavailable Amanda, R Tristan PT Unavailable Unavailable Amanda, R Tristan PT Unavailable Unavailable Amanda, R Tristan PT Unavailable Unavailable Amanda, R Tristan PT Unavailable Unavailable Amanda, R Tristan PT Unavailable Unavailable Amanda, R Tristan PT Unavailable Unavailable Amanda, R Tristan PT Unavailable Unavailable Amanda, R Tristan PT Unavailable Unavailable Amanda, R Tristan PT Unavailable Unavailable Amanda, R Tristan PT Unavailable Unavailable Amanda, R Tristan PT Unavailable Unavailable Amanda, R Tristan PT Unavailable Unavailable RASHARD, M FLORI DO Unavailable Unavailable RASHARD, M FLORI DO Unavailable Unavailable RASHARD, M FLORI DO Unavailable Unavailable RASHARD, M FLORI DO Unavailable Unavailable RASHARD, M FLORI DO Unavailable Unavailable RASHARD, M FLORI DO Unavailable Unavailable RASHARD, M FLORI DO Unavailable Unavailable RASHARD, M FLORI DO Unavailable Unavailable RASHARD, M FLORI DO Unavailable Unavailable RASHARD, M FLORI DO Unavailable Unavailable RASHARD, M FLORI DO Unavailable Unavailable RASHARD, M FLORI DO Unavailable Unavailable RASHARD, M FLORI DO Unavailable Unavailable RASHARD, M FLORI DO Unavailable Unavailable RASHARD, M FLORI DO Unavailable Unavailable RASHARD, M FLORI DO Unavailable Unavailable RASHARD, M FLORI DO Unavailable Unavailable RASHARD, M FLORI DO Unavailable Unavailable RASHARD, M FLORI DO Unavailable Unavailable RASHARD, M FLORI DO Unavailable Unavailable RASHARD, M FLORI DO Unavailable Unavailable RASHARD, M FLORI DO Unavailable Unavailable RASHARD, M FLORI DO Unavailable Unavailable RASHARD, M FLORI DO Unavailable Unavailable RASHARD, M FLORI DO Unavailable Unavailable RASHARD, M FLORI DO Unavailable Unavailable RASHARD, M FLORI DO Unavailable Unavailable RASHARD, M FLORI DO Unavailable Unavailable RASHARD, M FLORI DO Unavailable Unavailable RASHARD, M FLORI DO Unavailable Unavailable RASHARD, M FLORI DO Unavailable Unavailable RASHARD, M FLORI DO Unavailable Unavailable RASHARD, M FLORI DO Unavailable Unavailable RASHARD, M FLORI DO Unavailable Unavailable RASHARD, M FLORI DO Unavailable Unavailable RASHARD, M FLORI DO Unavailable Unavailable RASHARD, M FLORI DO Unavailable Unavailable RASHARD, M FLORI DO Unavailable Unavailable RASHARD, M FLORI DO Unavailable Unavailable RASHARD, M FLORI DO Unavailable Unavailable RASHARD, M FLORI DO Unavailable Unavailable RASHARD, M FLORI DO Unavailable Unavailable RASHARD, M FLORI DO Unavailable Unavailable RASHARD, M FLORI DO Unavailable Unavailable RASHARD, M FLORI DO Unavailable Unavailable RASHARD, M FLORI DO Unavailable Unavailable RASHARD, M FLORI DO Unavailable Unavailable RASHARD, M FLORI DO Unavailable Unavailable RASHARD, M FLORI DO Unavailable Unavailable RASHARD, M FLORI DO Unavailable Unavailable RASHARD, M FLORI DO Unavailable Unavailable RASHARD, M FLORI DO Unavailable Unavailable RASHARD, M FLORI DO Unavailable Unavailable RASHARD, M FLORI DO Unavailable Unavailable RASHARD, M FLORI DO Unavailable Unavailable RASHARD, M FLORI DO Unavailable Unavailable RASHARD, M FLORI DO Unavailable Unavailable RASHARD, M FLORI DO Unavailable Unavailable RASHARD, M FLORI DO Unavailable Unavailable RASHARD, M FLORI DO Unavailable Unavailable RASHARD, M FLORI DO Unavailable Unavailable RASHARD, M FLORI DO Unavailable Unavailable RASHARD, M FLORI DO Unavailable Unavailable RASHARD, M FLORI DO Unavailable Unavailable RASHARD, M FLORI DO Unavailable Unavailable RASHARD, M FLORI DO Unavailable Unavailable RASHARD, M FLORI DO Unavailable Unavailable RASHARD, M FLORI DO Unavailable Unavailable LETTIERE, A LINDA PA Unavailable Unavailable LETTIERE, A LINDA PA Unavailable Unavailable LETTIERE, A LINDA PA Unavailable Unavailable LETTIERE, A LINDA PA Unavailable Unavailable LETTIERE, A LINDA PA Unavailable Unavailable LETTIERE, A LINDA PA Unavailable Unavailable LETTIERE, A LINDA PA Unavailable Unavailable LETTIERE, A LINDA PA Unavailable Unavailable LETTIERE, A LINDA PA Unavailable Unavailable LETTIERE, A LINDA PA Unavailable Unavailable LETTIERE, A LINDA PA Unavailable Unavailable LETTIERE, A LINDA PA Unavailable Unavailable LETTIERE, A LINDA PA Unavailable Unavailable LETTIERE, A LINDA PA Unavailable Unavailable LETTIERE, A LINDA PA Unavailable Unavailable LETTIERE, A LINDA PA Unavailable Unavailable LETTIERE, A LINDA PA Unavailable Unavailable LETTIERE, A LINDA PA Unavailable Unavailable LETTIERE, A LINDA PA Unavailable Unavailable LETTIERE, A LINDA PA Unavailable Unavailable LETTIERE, A LINDA PA Unavailable Unavailable LETTIERE, A LINDA PA Unavailable Unavailable LETTIERE, A LINDA PA Unavailable Unavailable LETTIERE, A LINDA PA Unavailable Unavailable LETTIERE, A LINDA PA Unavailable Unavailable LETTIERE, A LINDA PA Unavailable Unavailable LETTIERE, A LINDA PA Unavailable Unavailable LETTIERE, A LINDA PA Unavailable Unavailable LETTIERE, A LINDA PA Unavailable Unavailable Sina, [id number] MD Royal NICOLE Unavailable [phone] Sina, [id number] MD Royal NICOLE Unavailable + [phone] Sina, [id number] MD Royal NICOLE Unavailable + [phone] Sina, [id number] MD Royal NICOLE Unavailable + [phone] Sina, [id number] MD Royal NICOLE Unavailable + [phone] Sina, [id number] MD Royal NICOLE Unavailable Sina, [id number] MD Royal MD Unavailable Sina, [id number] MD Royal MD Unavailable Sina, [id number] MD Royal MD Unavailable Sina, [id number] MD Royal MD Unavailable Sina, [id number] MD Royal MD Unavailable Sina, [id number] MD Royal MD Unavailable Sina, [id number] MD Royal MD Unavailable Sina, [id number] MD Royal MD Unavailable Sina, [id number] MD Royal MD Unavailable Sina, [id number] MD Royal MD Unavailable Sina, [id number] MD Royal MD Unavailable Sina, [id number] MD Royal MD Unavailable Sina, [id number] MD Royal MD Unavailable Sina, [id number] MD Royal MD Unavailable Sina, [id number] MD Royal MD Unavailable Sina, [id number] MD Royal MD Unavailable Sina, [id number] MD Royal MD Unavailable Sina, [id number] MD Royal MD Unavailable Sina, [id number] MD Royal MD Unavailable Sina, [id number] MD Royal MD Unavailable Sina, [id number] MD Royal MD Unavailable Sina, [id number] MD Royal MD Unavailable [facility], [id number] MD Royal NICOLE Unavailable [phone] Sian, [id number] MD Royal NICOLE Unavailable [phone] Sina, [id number] MD Royal NICOLE Unavailable [phone] JOSEP WILLIAM Unavailable Unavailable Lalo SINGLETON MD Unavailable Unavailable Lalo SINGLETON MD Unavailable Unavailable Lalo SINGLETON MD Unavailable Unavailable Lalo SINGLETON MD Unavailable Unavailable Lalo SINGLETON MD Unavailable Unavailable Lalo SINGLETON MD Unavailable Unavailable Lalo SINGLETON MD Unavailable Unavailable Lalo SINGLETON MD Unavailable Unavailable Lalo SINGLETON MD Unavailable Unavailable Lalo SINGLETON MD Unavailable Unavailable Lalo SINGLETON MD Unavailable Unavailable Lalo SINGLETON MD Unavailable Unavailable Lalo SINGLETON MD Unavailable Unavailable Lalo SINGLETON MD Unavailable Unavailable Lalo SINGLETON MD Unavailable Unavailable Lalo SINGLETON MD Unavailable Unavailable Lalo SINGLETON MD Unavailable Unavailable Lalo SINGLETON MD Unavailable Unavailable Lalo SINGLETON MD Unavailable Unavailable Lalo SINGLETON MD Unavailable Unavailable Lalo SINGLETON MD Unavailable Unavailable Lalo SINGLETON MD Unavailable Unavailable Lalo SINGLETON MD Unavailable Unavailable Lalo SINGLETON MD Unavailable Unavailable Lalo SINGLETON MD Unavailable Unavailable Lalo SINGLETON MD Unavailable Unavailable Lalo SINGLETON MD Unavailable Unavailable Lalo SINGLETON MD Unavailable Unavailable Lalo SINGLETON MD Unavailable Unavailable Lalo SINGLETON MD Unavailable Unavailable Lalo SINGLETON MD Unavailable Unavailable Lalo SINGLETON MD Unavailable Unavailable Lalo SINGLETON MD Unavailable Unavailable Lalo SINGLETON MD Unavailable Unavailable Lalo SINGLETON MD Unavailable Unavailable Lalo SINGLETON MD Unavailable Unavailable Lalo SINGLETON MD Unavailable Unavailable Lalo SINGLETON MD Unavailable Unavailable Lalo SINGLETON MD Unavailable Unavailable Lalo SINGLETON MD Unavailable Unavailable Lalo SINGLETON MD Unavailable Unavailable Lalo SINGLETON MD Unavailable Unavailable Lalo SINGLETON MD Unavailable Unavailable Lalo SINGLETON MD Unavailable Unavailable Lalo SINGLETON MD Unavailable Unavailable Lalo SINGLETON MD Unavailable Unavailable Lalo SINGLETON MD Unavailable Unavailable Lalo SINGLETON MD Unavailable Unavailable Lalo SINGLETON MD Unavailable Unavailable Lalo SINGLETON MD Unavailable Unavailable Lalo SINGLETON MD Unavailable Unavailable Lalo SINGLETON MD Unavailable Unavailable Lalo SINGLETON MD Unavailable Unavailable Lalo SINGLETON MD Unavailable Unavailable Lalo SINGLETON MD Unavailable Unavailable Lalo SINGLETON MD Unavailable Unavailable Lalo SINGLETON MD Unavailable Unavailable Lalo SINGLETON MD Unavailable Unavailable Lalo SINGLETON MD Unavailable Unavailable Lalo SINGLETON MD Unavailable Unavailable Lalo SINGLETON MD Unavailable Unavailable Lalo SINGLETON MD Unavailable Unavailable Lalo SINGLETON MD Unavailable Unavailable Lalo SINGLETON MD Unavailable Unavailable Lalo SINGLETON MD Unavailable Unavailable Lalo SINGLETON MD Unavailable Unavailable Lalo SINGLETON MD Unavailable Unavailable Lalo SIGNLETON MD Unavailable Unavailable Lalo SINGLETON MD Unavailable Unavailable Lalo SINGLETON MD Unavailable Unavailable Lalo SINGLETON MD Unavailable Unavailable Alfred AVENDAÑO MD Unavailable Unavailable Alfred AVENDAÑO MD Unavailable Unavailable Alfred AVENDAÑO MD Unavailable Unavailable Alfred AVENDAÑO MD Unavailable Unavailable Alfred AVENDAÑO MD Unavailable Unavailable Alfred AVENDAÑO MD Unavailable Unavailable Alfred AVENDAÑO MD Unavailable Unavailable Alfred AVENDAÑO MD Unavailable Unavailable Alfred AVENDAÑO MD Unavailable Unavailable Alfred AVENDAÑO MD Unavailable Unavailable Alfred AVENDAÑO MD Unavailable Unavailable Alfred AVENDAÑO MD Unavailable Unavailable Alfred AVENDAÑO MD Unavailable Unavailable Alfred AVENDAÑO MD Unavailable Unavailable Alfred AVENDAÑO MD Unavailable Unavailable DESJARLAIS, VAMSI INSPECTOR CANVAS PRODUCTS Unavailable Unavailable DESJARLAIS, VAMSI INSPECTOR CANV[employer] PRODUCTS Unavailable Unavailable DESJARLAIS, VAMSI INSPECTOR CANVAS PRODUCTS Unavailable Unavailable DESJARLAIS, VAMSI INSPECTOR CANVAS PRODUCTS Unavailable Unavailable DESJARLAIS, VAMSI INSPECTOR CANVAS PRODUCTS Unavailable Unavailable DESJARLAIS, VAMSI INSPECTOR CANVAS PRODUCTS Unavailable Unavailable DESJARLAIS, VAMSI INSPECTOR CANVAS PRODUCTS Unavailable Unavailable DESJARLAIS, VAMSI INSPECTOR CANVAS PRODUCTS Unavailable Unavailable DESJARLAIS, VAMSI INSPECTOR [employer] PRODUCTS Unavailable Unavailable LINDA JAVIER Unavailable Unavailable Juliana Huff MD Unavailable Unavailable Juliana Huff MD Unavailable Unavailable Juliana Huff MD Unavailable Unavailable Juliana Huff MD Unavailable Unavailable Juliana Huff MD Unavailable Unavailable Juliana Huff MD Unavailable Unavailable Juliana Huff MD Unavailable Unavailable Juliana Huff MD Unavailable Unavailable Juliana Huff MD Unavailable Unavailable Juliana Huff MD Unavailable Unavailable Juliana Huff MD Unavailable Unavailable Juliana Huff MD Unavailable Unavailable Juliana Huff MD Unavailable Unavailable Juliana Huff MD Unavailable Unavailable Juliana Huff MD Unavailable Unavailable Juliana Huff MD Unavailable Unavailable Juliana Huff MD Unavailable Unavailable Juliana Huff MD Unavailable Unavailable Juliana Huff MD Unavailable Unavailable Juliana Huff MD Unavailable Unavailable Juliana Huff MD Unavailable Unavailable Juliana Huff MD Unavailable Unavailable Juliana Huff MD Unavailable Unavailable Huff, L Carlos NICOLE Unavailable Unavailable Huff, L Carlos NICOLE Unavailable Unavailable Huff, L Carlos NICOLE Unavailable Unavailable Huff, L Carlos NICOLE Unavailable Unavailable Huff, L Carlos NICOLE Unavailable Unavailable Huff, L Carlos NICOLE Unavailable Unavailable Huff, L Carlos NICOLE Unavailable Unavailable Huff, Juliana Gonzalez MD Unavailable Unavailable Huff, L Carlos NICOLE Unavailable Unavailable Huff, Juliana Gonzalez MD Unavailable Unavailable Huff, L Carlos NICOLE Unavailable Unavailable Huff, L Carlos NICOLE Unavailable Unavailable Huff, L Carlos NICOLE Unavailable Unavailable Huff, L Carlos NICOLE Unavailable Unavailable Huff, L Carlos NICOLE Unavailable Unavailable Huff, L Carlos NICOEL Unavailable Unavailable Huff, L Carlos NICOLE Unavailable Unavailable Huff, L Carlos NICOLE Unavailable Unavailable Huff, L Carlos NICOLE Unavailable Unavailable Huff, L Carlos NICOLE Unavailable Unavailable Huff, L Carlos NICOLE Unavailable Unavailable Huff, L Carlos NICOLE Unavailable Unavailable Huff, L Carlos NICOLE Unavailable Unavailable Huff, L Carlos NICOLE Unavailable Unavailable Feola, T Negar PA Unavailable Unavailable Feola, T Negar PA Unavailable Unavailable Feola, T Negar PA Unavailable Unavailable Feola, T Negar PA Unavailable Unavailable Feola, T Negar PA Unavailable Unavailable Feola, T Negar PA Unavailable Unavailable Feola, T Negar PA Unavailable Unavailable Feola, T Negar PA Unavailable Unavailable Feola, T Negar PA Unavailable Unavailable Feola, T Negar PA Unavailable Unavailable Feola, T Negar PA Unavailable Unavailable Feola, T Engar PA Unavailable Unavailable Feola, T Negar PA Unavailable Unavailable Feola, T Negar PA Unavailable Unavailable Feola, T Negar PA Unavailable Unavailable Feola, T Negar PA Unavailable Unavailable Feola, T Negar PA Unavailable Unavailable Feola, T Negar PA Unavailable Unavailable Feola, T Negar PA Unavailable Unavailable Feola, T Negar PA Unavailable Unavailable Feola, T Negar PA Unavailable Unavailable Feola, T Negar PA Unavailable Unavailable Feola, T Negar PA Unavailable Unavailable Feola, T Negar PA Unavailable Unavailable Feola, T Negar PA Unavailable Unavailable Feola, T Negar PA Unavailable Unavailable Feola, T Negar PA Unavailable Unavailable Feola, T Negar PA Unavailable Unavailable Feola, T Negar PA Unavailable Unavailable Feola, T Negar PA Unavailable Unavailable Feola, T Negar PA Unavailable Unavailable Feola, T Negar PA Unavailable Unavailable Feola, T Negar PA Unavailable Unavailable Feola, T Negar PA Unavailable Unavailable Feola, T Negar PA Unavailable Unavailable Feola, T Negar PA Unavailable Unavailable Feola, T Negar PA Unavailable Unavailable Moehs, Ruiz Rodrigues MD Unavailable Unavailable Moehs, Ruiz Rodrigues MD Unavailable Unavailable Moehs, Ruiz Rodrigues MD Unavailable Unavailable Moehs, Ruiz Rodrigues MD Unavailable Unavailable Moehs, Ruiz Rodirgues MD Unavailable Unavailable Moehs, Ruiz Rodrigues MD Unavailable Unavailable Moehs, Ruiz Rodrigues MD Unavailable Unavailable Moehs, Ruiz Rodrigues MD Unavailable Unavailable Moehs, Ruiz Rodrigues MD Unavailable Unavailable Moehs, Ruiz Rodrigues MD Unavailable Unavailable Moehs, Ruiz Rodrigues MD Unavailable Unavailable Moehs, Ruiz Rodrigues MD Unavailable Unavailable Moehs, Ruiz Rodrigues MD Unavailable Unavailable Moehs, Ruiz Rodrigues MD Unavailable Unavailable Moehs, Ruiz Rodrigues MD Unavailable Unavailable Moehs, Ruiz Rodrigues MD Unavailable Unavailable Moehs, Ruiz Rodrigues MD Unavailable Unavailable Moehs, Ruiz Rodrigues MD Unavailable Unavailable Moehs, Ruiz Rodrigues MD Unavailable Unavailable Moehs, Ruiz Rodrigues MD Unavailable Unavailable Moehs, Ruiz Rodrigues MD Unavailable Unavailable Moehs, Ruiz Rodrigues MD Unavailable Unavailable Moehs, Ruiz Rodrigues MD Unavailable Unavailable Moehs, Ruiz Rodrigues MD Unavailable Unavailable Moehs, Ruiz Rodrigues MD Unavailable Unavailable Moehs, Ruiz Rodrigues MD Unavailable Unavailable Moehs, Ruiz Rodrigues MD Unavailable Unavailable Moehs, Ruiz Rodrigues MD Unavailable Unavailable Moehs, Ruiz Rodrigues MD Unavailable Unavailable Moehs, Ruiz Rodrigues MD Unavailable Unavailable Moehs, Ruiz Rodrigues MD Unavailable Unavailable Moehs, Ruiz Rodrigues MD Unavailable Unavailable Moehs, Ruiz Rodrigues MD Unavailable Unavailable Moehs, Ruiz Rodrigues MD Unavailable Unavailable Moehs, Ruiz Rodriguse MD Unavailable Unavailable Moehs, Ruiz Rodrigues MD Unavailable Unavailable Moehs, Ruiz Rodrigues MD Unavailable Unavailable Moehs, Ruiz Rodrigues MD Unavailable Unavailable Moehs, Ruiz Rodrigues MD Unavailable Unavailable Moehs, Ruiz Rodrigues MD Unavailable Unavailable Moehs, Ruiz Rodrigues MD Unavailable Unavailable Re-disclosure Warning The records that you are about to access may contain information from federally-assisted alcohol or drug abuse programs. If such information is present, then the following federally mandated warning applies: This information has been disclosed to you from records protected by federal confidentiality rules (42 CFR part 2). The federal rules prohibit you from making any further disclosure of this information unless further disclosure is expressly permitted by the written consent of the person to whom it pertains or as otherwise permitted by 42 CFR part 2. A general authorization for the release of medical or other information is NOT sufficient for this purpose. The Federal rules restrict any use of the information to criminally investigate or prosecute any alcohol or drug abuse patient.The records that you are about to access may contain highly sensitive health information, the redisclosure of which is protected by Article 27-F of the [facility] Public Health law. If you continue you may have access to information: Regarding HIV / AIDS; Provided by facilities licensed or operated by the [facility] Office of Mental Health; or Provided by the [facility] Office for People With Developmental Disabilities. If such information is present, then the following [facility] mandated warning applies: This information has been disclosed to you from confidential records which are protected by state law. State law prohibits you from making any further disclosure of this information without the specific written consent of the person to whom it pertains, or as otherwise permitted by law. Any unauthorized further disclosure in violation of state law may result in a fine or mcfp sentence or both. A general authorization for the release of medical or other information is NOT sufficient authorization for further disc losure. Allergies and Adverse Reactions Type Description Substance Reaction Status Data Source(s ) Drug allergy Reglan Metoclopramide Rash Active eCW1 ([facility]) Drug allergy Morphine Sulfate Morphine Dyspnea Active eCW1 ( [facility]) Drug allergy Guaifenesin Drug allergy high heart rate Active eCW 1 ([facility]) Mylanta Mylanta Mylanta hives, breathing difficulties and ch est pain Active eCW1 ([facility]) Trazodone Trazodone Trazodone Migraine Active eCW1 ([facility]) SYSTEMIC NO ALLERGIES ON FILE NO ALLERGIES ON FILE [facility] Propensity to adverse reactions to substance morphine Morphine Sulfate 15 MG Oral Tablet Active [facility] ([facility] Propensity to adverse reactions to substance guanfacine HCl 24 HR Guanfacine 1 MG Extended Release Oral Tablet [Intuniv] Active [facility] ([facility]) Family History Family Member Name Family Member Gender Family Member Status Date o f Status Description Data Source(s) Unknown Unknown Problem MEDENT ([facility]) Encounters Encounter Providers Location Date Indications Data Source(s ) O Attender: Negar TSE 021 02:02:04 PM EST - 07/14/2020 02:24:38 PM EST DocuTap ([facility] ) [place] [address] [address] 07/13/2020 12:00:00 AM EST [facility] Outpatient Attender: VAMSI CANALES NP 06/28/2020 09: 27:00 AM [facility] Outpatient Attender: LINDA tan 06/14/2020 04:15:00 PM EST MEDENT ([facility]) Outpatient Attender: VAMSI CANALES NP 06/07/2020 10: 14:00 AM [facility] Outpatient Attender: FLORI WETZEL DO [facility] [place] 05/24/2020 12:30:00 PM EST [facility] ([facility]) Outpatient Attender: [id number] Royal Andino MD [facility] 05/23/2020 01:34:00 PM EST - 05/23/2020 01:35:00 PM EST [facility] Patient discharged. Outpatient Attender: VAMSI CANALES NP 04/21/2020 10: 31:00 AM [facility] [place] [address] [address] 04/11/2020 12:00:00 AM EST eCW1 ([facility]) [place] [address] [address] 04/05/2020 12:00:00 AM EDT eCW1 ([facility]) [place] [address] [address] 04/04/2020 12:00:00 AM EDT [facility] Outpatient Attender: Tristan Cheatham PT [facility] 03/10 07:43:00 AM EDT - 03/31/2020 07:44:00 AM EDT I73.00, R76.8 [facility] I73.00, R76.8 Patient discharged. Outpatient Attender: VAMSI CANALES NP 03/24/2020 01: 55:00 PM [facility] Unknown [address] [address] 03/16/2020 12:00:00 AM EDT eCW1 ([facility]) Outpatient Attender: LINDA JAVIER 03/15/2020 04:00:00 PM [facility] Outpatient Attender: LINDA JAVIER 02/29/2020 03:00:00 PM [facility] Admission cancelled. Disregard status an d admitted date. Outpatient Attender: Tristan Cheatham PT [facility] 08:43:00 AM EDT - 02/24/2020 08:44:00 AM EDT I73.00,R76.8 [facility] I73.00,R76.8 Patient discharged. Outpatient Attender: VAMSI CANALES NP 02/22/2020 11: 47:00 AM [facility] Office Visit Attender: Carlos Huff MD Physical Therapy 2019 10:45:00 AM EDT MEDENT ([facility]) Outpatient Attender: VAMSI CANALES NP 01/21/2020 11: 20:00 AM [facility] Office Visit Attender: Carlos Huff MD Physical Therapy 2019 10:45:00 AM EDT MEDENT ([facility]) [place] [address] [address] 12/27/2019 12:00:00 AM EDT eCW1 ([facility]) [place] [address] [address] 12/24/2019 12:00:00 AM EDT eCW1 ([facility]) Outpatient Attender: VAMSI CANALES NP 12/23/2019 10: 00:00 AM [facility] Unknown [address] [address] 12/23/2019 12:00:00 AM EDT eCW1 ([facility]) [place] [address] [address] 12/17/2019 12:00:00 AM EDT eCW1 ([facility]) Outpatient Attender: Carlos Huff MD Physical Therapy 11/22/2019 0 2:45:00 PM EDT MEDENT ([facility]) Outpatient Attender: WILLIAM CAR 11/19/2019 10:00:00 AM [facility] Outpatient Attender: VAMSI CANALES NP 11/05/2019 03: 20:00 PM [facility] Outpatient Attender: ARI Pruett ry 11/04/2019 12:15:00 PM EDT MEDENT ([facility]) Outpatient Attender: ARI Pruett ry 11/03/2019 02:30:00 PM EDT MEDENT ([facility]) [address] [address] 11/03/2019 12:00:00 AM EDT eCW1 ([facility] Outpatient Attender: Payton rodas 10/29/2019 05:15:00 PM EDT MEDENT ([facility]) [facility] [address] [place] [address], [place] [address] 10/19/2019 12:00:00 AM EDT eCW1 ([facility] [address] [address] 10/19/2019 12:00:00 AM EDT eCW1 ([facility]) [facility] [address] [place] [address], [place] [address] 10/19/2019 12:00:00 AM EDT eCW1 ([facility]) Outpatient Attender: VAMSI CANALES NP 10/08/2019 01: 00:00 PM [facility] [address] [address] 09/20/2019 12:00:00 AM EDT [facility] Outpatient [facility] 09/01/2019 12:00:00 AM EDT eCW1 ([facility]) [address] [address] 08/31/2019 12:00:00 AM EDT eCW1 [facility] [address] [place] [address] 08/12/2019 12:00:00 AM EST eCW1 ([facility]) Outpatient Referrer: Ravi Escamilla MD 08/10/2019 03:37:00 PM EST [facility] [address] [place] [address] 08/04/2019 12:00:00 AM EST eCW1 [facility] Attender: RICARDO SINGLETON MD 5F-FLCS 08/02/2019 11:03:52 A M [facility] Outpatient Attender: LINDA tan 08/01/2019 08:35:00 AM EST MEDENT ([facility]) Outpatient 5F-PW 07/23/2019 01:43:12 PM EST - 020 11:59:00 PM [facility] Patient discharged. [address] [address] 07/22/2019 12:00:00 AM EST eCW1 ([facility] [address] [address] 07/22/2019 12:00:00 AM EST eCW1 ([facility] [address] [address] 07/22/2019 12:00:00 AM EST eCW1 [facility]) 07/15/2019 01:24:43 PM EST [facility] 5F-FCT 07/09/2019 01:05:[address] [address] 07/09/2019 12:00:00 AM EST eCW1 ([facility]) [facility] [place] [address] [address] 07/07/2019 12:00:00 AM EST eCW1 ([facility]) Outpatient Attender: Farrukh Rivera DO [facility] 07/05/2019 01:30:00 P M EST MEDENT ([facility]) 07/04/2019 08:20:02 AM [facility] 07/03/2019 01:46:07 PM [facility] 07/03/2019 10:24:12 AM [facility] 07/03/2019 10:23:57 AM [facility] 06/30/2019 06:03:25 PM [facility] 06/30/2019 12:42:59 PM [facility] 06/30/2019 12:27:01 PM [facility] Attender: Farrukh Rivera DO 5F-FLCS 06/30/2019 12:24:30 PM [facility] 06/30/2019 08:14:46 AM [facility] Flori Wetzel, DO: [address] , [place] [address], Ph. Attender: FLORI WETZEL DO [facility] - Main Schedule 06/30/2019 12:00:00 AM EST KAYCEE ([facility]) 06/29/2019 03:27:24 PM [facility] Outpatient Attender: PAXTON AVENDAÑO MD [facility] 06/16/2019 04:00:00 AM EST - 06/16/2019 04:00:00 AM EST [facility] ([facility]) Attender: PAXTON AVENDAÑO MD 06/16/2019 12:00:00 A M EST [facility] ([facility] [address] [place] [address] 05/31/2019 12:00:00 AM EST eCW1 ([facility]) Functional Status Medications Medication Brand Name Start Date Product Form Dose Route Admi nistrative Instructions Pharmacy Instructions Status Indications Reaction Description Data Source(s) Hydroxychloroquine Sulfate 200 MG Oral Tablet [Plaquen il] Plaquenil 200 MG Plaquenil 200 MG 07/13/2020 12:00:00 AM EST a ctive Plaquenil 200 MG eCW1 ([facility]) Hydrocortisone 10 MG/ML / Neomycin 3.5 M G/ML / Polymyxin B 24858 UNT/ML Otic Solution Pizlrtij-Mrhhojfnb-LO 06/14/2020 12:00:00 AM EST AURICU LAR active MEDENT ([facility]) dexlansoprazole 60 MG Delayed Release Oral Capsule [Dexilant ] Dexilant 05/01/2020 12:00:00 AM EST ORAL active MEDENT ([facility]) Prednisone 10 MG Oral Tablet PredniSONE 10 MG PredniSONE 10 MG 12/27/2019 12:00:00 AM EDT active PredniSO NE 10 MG eCW1 ([facility]) Prednisone 10 MG Oral Tablet PredniSONE 10 MG PredniSONE 10 MG 12/27/2019 12:00:00 AM EDT active PredniSO NE 10 MG eCW1 ([facility]) Prednisone 10 MG Oral Tablet PredniSONE 10 MG PredniSONE 10 MG 12/27/2019 12:00:00 AM EDT active PredniSO NE 10 MG eCW1 ([facility]) Prednisone 10 MG Oral Tablet PredniSONE 10 MG PredniSONE 10 MG 12/27/2019 12:00:00 AM EDT active PredniSO NE 10 MG eCW1 ([facility]) Prednisone 10 MG Oral Tablet PredniSONE 10 MG PredniSONE 10 MG 12/27/2019 12:00:00 AM EDT active PredniSO NE 10 MG eCW1 ([facility]) Triamcinolone Acetonide 0.001 MG/MG Oral Paste Triamci nolone Acetonide 0.1 % Triamcinolone Acetonide 0.1 % 12/17/2019 12:00:00 AM EDT active Triamcinolone Acetonide 0.1 % eCW1 ([facility]) Triamcinolone Acetonide 0.001 MG/MG Oral Paste Triamci nolone Acetonide 0.1 % Triamcinolone Acetonide 0.1 % 12/17/2019 12:00:00 AM EDT active Triamcinolone Acetonide 0.1 % eCW1 ([facility]) Triamcinolone Acetonide 0.001 MG/MG Oral Paste Triamci nolone Acetonide 0.1 % Triamcinolone Acetonide 0.1 % 12/17/2019 12:00:00 AM EDT active Triamcinolone Acetonide 0.1 % eCW1 ([facility]) Triamcinolone Acetonide 0.001 MG/MG Oral Paste Triamci nolone Acetonide 0.1 % Triamcinolone Acetonide 0.1 % 12/17/2019 12:00:00 AM EDT active Triamcinolone Acetonide 0.1 % eCW1 ([facility]) Triamcinolone Acetonide 0.001 MG/MG Oral Paste Triamci nolone Acetonide 0.1 % Triamcinolone Acetonide 0.1 % 12/17/2019 12:00:00 AM EDT active Triamcinolone Acetonide 0.1 % eCW1 ([facility]) Triamcinolone Acetonide 0.001 MG/MG Oral Paste Triamci nolone Acetonide 0.1 % Triamcinolone Acetonide 0.1 % 12/17/2019 12:00:00 AM EDT active Triamcinolone Acetonide 0.1 % eCW1 ([facility]) Rocephin/Ceftriaxone Sodium Injection Per 250 MG 11/03 12:00:00 AM EDT completed MEDENT ([facility]) Medication administered onsite Rocephin/Ceftriaxone Sodium Injection Per 250 MG 11/02 12:00:00 AM EDT completed MEDENT ([facility]) Medication administered onsite Prednisone 20 MG Oral Tablet Prednisone 10/29/2019 12:00:00 AM EDT completed MEDENT ([facility]) duloxetine 20 MG Delayed Release Oral Capsule [Cymbalt a] Cymbalta 20 MG Cymbalta 20 MG 08/12/2019 12:00:00 AM EST active 1 capsule eCW1 ([facility]) meloxicam 7.5 MG Oral Tablet Meloxicam 7.5 MG Meloxicam 7.5 MG 08/12/2019 12:00:00 AM EST active 1 tablet eCW1 ([facility]) Oseltamivir 75 MG Oral Capsule Oseltamivir Phosphate 08/01/2019 12:00:00 AM EST ORAL completed MEDENT ([facility]) Xofluza Xofluza 08/01/2019 12:00:00 AM EST complet ed MEDENT ([facility]) Oseltamivir 75 MG Oral Capsule [Tamiflu] Tamiflu 75 MG Tamif sabino 75 MG 07/08/2019 12:00:00 AM EST active 1 capsul e eCW1 ([facility]) Oseltamivir 75 MG Oral Capsule [Tamiflu] Tamiflu 75 MG Tamif sabino 75 MG 07/08/2019 12:00:00 AM EST active 1 capsul e eCW1 ([facility]) 24 HR venlafaxine 150 MG Extended Release Oral Capsule venla faxine 06/16/2019 12:00:00 AM EST 150 mg completed [id number] venlafaxin e 06/16/2019 08/15/2019 every morning 30 150 mg capsule,extended release 24hr [id number] [facility] [id number] Psychiatry Accumed ic ([facility]) 24 HR Amphetamine aspartate 3.75 MG / Am phetamine Sulfate 3.75 MG / Dextroamphetamine saccharate 3.75 MG / Dextroamphetamine Sulfate 3.75 MG Extended Release Oral Capsule [Adderall] Adderall XR 06/08/2019 12:00:00 AM EST 15 mg by mouth completed [id number] Adderall XR by [facility] [id number] 06/08/2019 07/08/2019 twice a day 30 15 mg capsule,extended release 24hr [id number] Vamsi Dill [id number] Nurse Practitioner [facility] ([facility]) Align 4 MG Align 4 MG 05/31/2019 12:00:00 AM EST active Align 4 MG eCW1 ([facility]) Align 4 MG Align 4 MG 05/31/2019 12:00:00 AM EST a ctive 1 tab eCW1 ([facility]) Align 4 MG Align 4 MG 05/31/2019 12:00:00 AM EST active Align 4 MG eCW1 ([facility]) Amoxicillin 875 MG / Clavulanate 125 MG Oral Tablet Amoxicillin-Pot Clavulanate 875-125 MG Amoxicillin-Pot Clavulanate 875-125 MG 05/31/2019 12:00:00 AM ES T active 1 tablet eCW1 ([facility]) Align 4 MG Align 4 MG 05/31/2019 12:00:00 AM EST active Align 4 MG eCW1 ([facility]) Align 4 MG Align 4 MG 05/31/2019 12:00:00 AM EST active Align 4 MG eCW1 ([facility]) Align 4 MG Align 4 MG 05/31/2019 12:00:00 AM EST a ctive 1 tab eCW1 ([facility]) Align 4 MG Align 4 MG 05/31/2019 12:00:00 AM EST active Align 4 MG eCW1 ([facility]) Align 4 MG Align 4 MG 05/31/2019 12:00:00 AM EST active Align 4 MG eCW1 ([facility]) Insurance Providers Payer name Policy type / Coverage type Policy ID Covered green party ID Covered green party's relationship to adamson Policy [place] Plan Information UMR [facility] [id number] WI2 [id number] [facility] emp [id number] Employ ee [id number] UMR [id number] SPO [id number] UMR [id number] SPO [id number] SELF PAY UNAVAILABLE S UNAVAILA BLE UMR [id number] S [id number] UMR O [id number] S [id number] UMR NONE S NONE [facility] [id number] Spouse 1 [id number] [facility] [id number] Spouse [id number] ANSI-Commercial [id number] ANSI-Commercial [id number] ANSI-Commercial [id number] [facility] Commercial [id number] Family Dependent [id number] ANSI-Commercial [id number] ANSI-Commercial [id number] [facility] [id number] [facility] [id number] ANSI-Commercial [id number] ANSI-Commercial [id number] ANSI-Commercial [id number] ANSI-Commercial [id number] ANSI-Commercial [id number] ANSI-Commercial [id number] ANSI-Commercial [id number] ANSI-Commercial [id number] [facility] [id number] SP [id number] ANSI-Commercial [id number] ANSI-Commercial [id number] ANSI-Commercial [id number] ANSI-Commercial [id number] ANSI-Commercial [id number] [facility] ([facility]) [id number] Family Dependent [id number] ANSI-Commercial [id number] ANSI-Commercial [id number] ANSI-Commercial [id number] [facility] HEA [id number] SP [id number] COMMERCIAL HEA [id number] SP [id number] [facility] [id number] 2 [id number] ANSI-Commercial [id number] ANSI-Commercial [id number] ANSI-Commercial [id number] ANSI-Commercial [id number] ANSI-Commercial [id number] ANSI-Commercial [id number] ANSI-Commercial [id number] ANSI-Commercial [id number] ANSI-Commercial [id number] ANSI-Commercial [id number] [employer] [id number] HU2 [id number] [employer] PPO O [id number] S [id number] [employer] (HMO) [id number] Fa berny Dependent [id number] [employer] (HMO) [id number] Fa berny Dependent [id number] [employer] HEA [id number] SP [id number] [employer]-O/P UNAVAILABLE UNAVAILA BLE ATLANTIC TESTING ADAM O [id number] S [id number] [employer] Commercial Family Dependent [employer] COMP [id number] SP [id number] [employer] [id number] HU2 [id number] [facility]WAITING ON CAR[facility]ER) [id number] HU2 [id number] [employer] COMP UNAVAILABLE UNAVAILABLE [employer] [id number] HU2 [id number] [employer] F [id number] SPOUSE [id number] [employer] F [id number] SPOUSE [id number] [employer] Family Dependent [employer] Family Dependent [employer]-O/P [id number] 01 [id number] [employer]-O/P [id number] 18 [id number] [employer] [id number] 1 [id number] [employer] [id number] 1 [id number] Problems, Conditions, and Diagnoses Code Display Name Description Problem Type Effective Dates Data Source(s) Z98.84 474966399 S/P gastric bypass Problem 07/13/2020 12:00: 00 AM EST eCW1 ([facility]) J30.1 50602594 Allergic rhinitis due to pollen, unspecif ied seasonality Problem 04/11/2020 12:00:00 AM EST eCW1 ([facility]) M35.9 [id number] Connective tissue disease, undifferentiat ed Problem 04/11/2020 12:00:00 AM EST eCW1 ([facility]) K12.0 843312674 Canker sores oral Problem 12/17/2019 12:00:0 0 AM EDT eCW1 ([facility]) F41.1 Generalized anxiety disorder Generalized Anxiety Disor zahraa Condition 06/16/2019 12:00:00 AM EST [facility] ([facility]) F60.3 Borderline personality disorder BORDERLINE PERSONALITY DISORDER Diagnosis 06/07/2020 10:14:00 AM EST [facility] F41.1 Generalized anxiety disorder GENERALIZED ANXIETY DISOR ZAHRAA Diagnosis 06/07/2020 10:14:00 AM [facility] F41.0 Panic disorder [episodic paroxysmal anxi ety] PANIC DISORDER [EPISODIC PAROXYSMAL ANXIETY] Diagnosis 06/07/2020 10:14:00 AM [facility] F90.9 Attention-deficit hyperactivity disorder , unspecified type ATTENTION- DEFICIT HYPERACTIVITY DISORDER, UNSPECIFIED TYPE Diagnosis 06/07 10:14:00 AM [facility] R40.0 Somnolence SOMNOLENCE Diagnosis 04/21/2020 10:31:00 AM [facility] F43.10 Post-traumatic stress disorder, unspecif ied POST-TRAUMATIC STRESS DISORDER, UNSPECIFIED Diagnosis 04/21/2020 10:31:00 AM [facility] amarilis R76.8 Other specified abnormal immunological f indings in serum OTHER SPECIFIED ABNORMAL IMMUNOLOGICAL FINDINGS IN SERUM Diagnosis 02/24/2020 08:43:00 AM [facility] I73.00 Raynaud's syndrome without gangrene RAYNAUD'S SY NDROME WITHOUT GANGRENE Diagnosis 02/24/2020 08:43:00 AM [facility] F33.0 Major depressive disorder, recurrent, mi ld MAJOR DEPRESSIVE DISORDER, RECURRENT, MILD Diagnosis 02/22/2020 11:47:00 AM [facility] F60.9 Personality disorder, unspecified PERSONALITY DI SORDER, UNSPECIFIED Diagnosis 12/23/2019 10:00:00 AM [facility] Surgeries/Procedures Procedure Description Date Indications Data Source(s) OFFICE OUTPATIENT NEW 20 MINUTES OFFICE/OUTPATIENT VISIT NEW 02/24/2020 12:00:00 AM [facility] EXTRACTABLE NUCLEAR ANTIGEN ANTIBODY ANY METHOD NUCLEAR ANTI GEN ANTIBODY 02/24/2020 12:00:00 AM [facility] GAMMAGLOBULIN IGA IGD IGG IGM EACH ASSAY IGA/IGD/IGG/IGM EAC H 02/24/2020 12:00:00 AM [facility] ANTINUCLEAR ANTIBODIES PHILIPP ANTINUCLEAR ANTIBODIES 02/24/2020 12:00: 00 AM [facility] CYCLIC CITRULLINATED PEPTIDE ANTIBODY CCP ANTIBODY 02/24/2020 12:00 :00 AM [facility] RHEUMATOID FACTOR QUANTITATIVE RHEUMATOID FACTOR QUANT 02/23 12:00:00 AM [facility] COLLECTION VENOUS BLOOD VENIPUNCTURE ROUTINE VENIPUNCTURE 12:00:00 AM EDT [facility] Endoscopy Wrist W/Release Transverse Carpal Ligament 02/08/2020 12:00:00 AM EDT [facility] ([facility]) RADEX WRIST COMPLETE MINIMUM 3 VIEWS 01/11/2020 12:00: 00 AM EDT [facility] ([facility]) Endoscopy Wrist W/Release Transverse Carpal Ligament 12/29/2019 12:00:00 AM EDT [facility] ([facility]) RADEX WRIST COMPLETE MINIMUM 3 VIEWS 11/22/2019 12:00: 00 AM EDT [facility] ([facility]) Therapeutic, Prophylactic Or Diagnostic Injection Subq/Im 11/04/2019 12:00:00 AM EDT [facility] ([facility]) Therapeutic, Prophylactic Or Diagnostic Injection Subq/Im 11/03/2019 12:00:00 AM EDT [facility] ([facility]) Therapeutic, Prophylactic Or Diagnostic Injection Subq/Im 10/29/2019 12:00:00 AM EDT [facility] ([facility]) OFFICE OUTPATIENT VISIT 15 MINUTES 06/16 12:00:00 AM EST - 06/16/2019 12:00:00 AM EST [facility] ([facility]) OFFICE OUTPATIENT VISIT 15 MINUTES 06/16/2019 12:00:00 AM EST [facility] ([facility]) Results ID Date Data Source VITAMIN B12 LEVEL 04/11/2020 12:00:00 AM EST eCW1 ([facility]) Name Value Range Interpretation Code Description Data Carol rce(s) Supporting Document(s) 371 301-898 eCW1 ([facility]) ID Date Data Source PTH INTACT 04/11/2020 12:00:00 AM EST eCW1 ([facility]) Name Value Range Interpretation Code Description Data Carol rce(s) Supporting Document(s) 94.4 18.5-88.0 eCW1 ([facility]) ID Date Data Source VITAMIN D 25-HYDROXY 04/11/2020 12:00:00 AM EST eCW1 ([facility]) Name Value Range Interpretation Code Description Data Carol rce(s) Supporting Document(s) 29.5 30.0-100.0 eCW1 ([facility]) ID Date Data Source FREE T4 & TSH PANEL 04/11/2020 12:00:00 AM EST eCW1 ([facility]) Name Value Range Interpretation Code Description Data Carol rce(s) Supporting Document(s) 1.360 0.358-3.740 [facility]1 [facility]) 0.97 0.76-1.46 eCW1 ([facility]) ID Date Data Source FERRITIN 04/11/2020 12:00:00 AM EST eCW1 ([facility]) Name Value Range Interpretation Code Description Data Carol rce(s) Supporting Document(s) 6 6-119 eCW1 ([facility]) ID Date Data Source LIPID PANEL (CARDIAC RISK) 04/11/2020 12:00:00 AM EST eCW1 ( [facility]) Name Value Range Interpretation Code Description Data Carol rce(s) Supporting Document(s) Cholesterol in HDL [Moles/volume] in Serum or Plasma 84 >40 eCW1 ([facility]) Triglyceride [Mass/volume] in Serum or Plasma by calculation 76 <150 eCW1 ([facility]) Cholesterol in LDL [Mass/volume] in Serum or Plasma by calculation 11 5 <100 eCW1 ([facility]) Cholesterol [Moles/volume] in Serum or Plasma 214 <200 eCW1 ([facility]) 130 eCW1 ([facility]) 2.547 <5 eCW1 ([facility]) ID Date Data Source IRON (FE) 04/11/2020 12:00:00 AM EST eCW1 ([facility]) Name Value Range Interpretation Code Description Data Carol rce(s) Supporting Document(s) 93 50-170 eCW1 ([facility]) ID Date Data Source Comprehensive Metabolic Profile (CMP) 04/11/2020 12:00:00 AM EST eCW1 ([facility]) Name Value Range Interpretation Code Description Data Carol rce(s) Supporting Document(s) 82 70-100 eCW1 ([facility]) 18 7-18 eCW1 ([facility]) 0.77 0.55-1.30 eCW1 ([facility]) 143 136-145 eCW1 ([facility]) 3.9 3.5-5.1 eCW1 ([facility]) > 60.0 >60 eCW1 [facility] 28 21-32 eCW1 ([facility]) 111 98-107 eCW1 ([facility]) 12 7-37 eCW1 ([facility]) 8.8 8.5-10.1 eCW1 ([facility]) 14 12-78 eCW1 ([facility]) 0.9 0.2-1.0 eCW1 ([facility]) 60 45-117 eCW1 ([facility]) 4.0 3.2-5.2 eCW1 ([facility]) 6.6 6.4-8.2 eCW1 ([facility]) 1.5 1.2-2.2 eCW1 ([facility]) ID Date Data Source CBC with Differential 04/11/2020 12:00:00 AM EST eCW1 ([facility]) Name Value Range Interpretation Code Description Data Carol rce(s) Supporting Document(s) 11.9 12.0-15.5 eCW1 ([facility]) 5.0 4.0-10.0 eCW1 ([facility]) 4.07 4.00-5.40 eCW1 ([facility]) 90.9 80.0-96.0 eCW1 ([facility]) 32.2 32.0-36.5 eCW1 ([facility]) 29.2 27.0-33.0 eCW1 ([facility]) 37.0 36.0-47.0 eCW1 ([facility]) 269 150-450 eCW1 ([facility]) 38.1 24.0-44.0 eCW1 ([facility]) 47.0 36.0-66.0 eCW1 ([facility]) 12.1 11.5-14.5 eCW1 ([facility]) 0.8 0.0-1.0 eCW1 ([facility]) 7.9 0.0-5.0 eCW1 ([facility]) 5.8 0.0-3.0 eCW1 ([facility]) 2.4 1.5-8.5 eCW1 ([facility]) 0.0 0.0-0.2 eCW1 ([facility]) 0.4 0.0-0.8 eCW1 ([facility]) 0.3 0.0-0.5 eCW1 ([facility]) 1.9 1.5-5.0 eCW1 ([facility]) ID Date Data Source [id number] 03/31/2020 07:46:00 AM EDT [facility] Name: GUILLE GAYLE : 2 Age/Sex: 39F Ordering Provider: CARMENCITA Bolaños Med Rec #: [id number] Reg Status:[facility] REF Room #: Date of Service: 03/31/20 Report Number: [id number] cc: CARMENCITA Bolaños Send Report To: [facility] Ordering Phys: AMANDA, Referring Phys: AMANDA, Exam Location: Echo Lab Exam Date: 03/31/2020 08:10 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 OP BP 114 / 80 Rhythm: Technical Quality: Contrast: Total Dose (mL): MEASUREMENTS (Male / Female) Normal Values 2D ECHO Measurement LV Diastolic Diameter PLAX 4.5 cm 4.2 - 6.0 / 3.9 - 5.4 cm IVS Diastolic Thickness 0.99 cm 0.6 - 1.1 / 0.6 - 1.0 cm LVPW Diastolic Thickness 0.95 cm 0.6 - 1.1 / 0.6 - 1.0 LV Relative Wall Thickness 0.44 LVOT Diameter 2 cm Aortic Root Diameter 2.7 cm Aortic Root Diameter Index 1.5 cm/m2 LA Systolic Diameter LX 2.9 cm 3.0 - 4.1 / 2.7 - 3.9 cm LV Diastolic Volume MOD BP 67.3 ml LV Systolic Volume MOD BP 31.4 ml LV Ejection Fraction MOD BP 53.3 % >= 55 % LV Diastolic Volume MOD 4C 69.8 ml LV Systolic Volume MOD 4C 34.1 ml LV Ejection Fraction MOD 4C 51.1 % LV Diastolic Volume MOD 2C 62.7 ml LV Systolic Volume MOD 2C 27.1 ml LV Ejection Fraction MOD 2C 56.8 % LV Diastolic Length 4C 8.6 cm LV Systolic Length 4C 7.4 cm LV Diastolic Area 4C 27 cm2 LV Systolic Area 4C 17.3 cm2 LV Ejection Fraction 4C AL 52.4 % LV Diastolic Area 2C 24.8 cm2 LV Diastolic Length 2C 8.2 cm LV Systolic Area 2C 14.7 cm2 LV Systolic Length 2C 6.9 cm LV Ejection Fraction 2C AL 57.9 % LA Volume Index 24.2 cm3/m2 16 - 28 cm3/m2 Ascending Aorta Diameter 3 cm DOPPLER Measurement AV Peak Velocity 133 cm/s AV Peak Gradient 7.1 mmHg LVOT Peak Velocity 93.3 cm/s LVOT Peak Gradient 3.5 mmHg AV Area Cont Eq vti 2.4 cm2 AV Area Cont Eq pk 2.2 cm2 Mitral E Point Velocity 91.7 cm/s Mitral A Point Velocity 72 cm/s Mitral E to A Ratio 1.3 MV Area PHT 3.4 cm2 MV Deceleration Time 219 ms Mitral E to LV E' Lateral Ratio 7.7 LV E' Septal Velocity 7.8 cm/s Mitral E to LV E' Septal Ratio 11.7 FINDINGS Left Ventricle: Normal left ventricular size, wall thickness, with no obvious regional wall motion abnormalities. The left ventricular ejection fraction appears lower limits of normal around 53%. LVEDP assessment by E/E ratio appears normal. Right Ventricle: Normal right ventricular size and function. Right Atrium: Normal right atrial size. Left Atrium: Normal left atrial size. Mitral Valve: There is mild thickening of the anterior mitral leaflet. There is trivial mitral regurgitation. Aortic Valve: Structurally normal aortic valve. Tricuspid Valve: Suboptimal tricuspid regurgitation jet to estimate pulmonary artery pressure. Normally structured tricuspid valve. Pulmonic Valve: Pulmonic valve not well visualized. Pericardium: Trace pericardial effusion. Aorta: Normal size aortic root and proximal ascending aorta. CONCLUSIONS Trace pericardial effusion. There is mild thickening of the anterior mitral leaflet. There is trivial mitral regurgitation. Normal left ventricular size, wall thickness, with no obvious regional wall motion abnormalities. The left ventricular ejection fraction appears lower limits of normal around 53%. LVEDP assessment by E/E ratio appears normal. Otherwise normal echocardiogram. REPORT SIGNATURE ON FILE 05/18/20 1409 Reported By: Sreekanth Sanderson MD, FACC <Electronically signed by Sreekanth Sanderson MD, FACC in OV> Exam Date/Time: 03/31/20 0746 Order #: [id number] Dictation Date/Time: 03/31/20 0810 Transcribed Date/Time: Stockroom Helper: Name Value Range Interpretation Code Description Data Carol rce(s) Supporting Document(s) ID Date Data Source [id number] 03/31/2020 03:07:00 PM EDT [facility] Name: GUILLE GAYLE : 2 Age/Sex: 39F Ordering Provider: CARMENCITA Bolaños Med Rec #: [id number] Reg Status: REG REF Room #: Date of Service: 03/31/20 Report Number: [id number] cc:CARMENCITA Bolaños Send Report To: [id number] CT/CT High Res Chest No Contrast Reason for exam: RAYNAUD'S DISEASE WITHOUT GANGRENE, SCL-70 ANTIBODY POSITIVE FINDINGS: Heart and mediastinum are within normal limits. No signs of any pleural or pericardial effusion identified. The lung dill are clear. There is no evidence for any significant interstitiallung disease or any signs of NSIP. Upper abdomen is within normal limits. No signs of any air trapping. No evidence for any bronchiectasis. IMPRESSION: Unremarkable high resolution CT scan of the chest. While performing the above CT exam, the following dose reduction techniques wereused: *Automated exposure control *Adjustment of the mA and/or kV according to patient size *Use of iterative reconstruction technique CT Dose in mSv: 15.079 Contrast Agent in ml: Method of Administration: REPORT SIGNATURE ON FILE Reported By: Linda Vela MD <Electronically signed by Lotus Vlea MD> 03/31/20 1719 Dictation Date/Time: 03/31/20 0931 Transcribed Date/Time: 03/31/20 1507 Stockroom Helper: DEEDEE Name Value Range Interpretation Code Description Data Carol rce(s) Supporting Document(s) ID Date Data Source [id number] 02/25/2020 06:32:00 PM EDT [facility] Name Value Range Interpretation Code Description Data Carol rce(s) Supporting Document(s) IGAMS IgG result 678 mg/dL 610-1,616 Normal (applies to non-numeric results) [facility] IGAMS IgA result 164 mg/dL 85-499 Normal (applies to non-numeric results) [facility] IGAMS IgM result 133 mg/dL 35-242 Normal (applies to non-numeric results) [facility] Test performed [place] [address] ID Date Data Source [id number] 02/25/2020 06:32:00 PM EDT [facility] Name Value Range Interpretation Code Description Data Carol rce(s) Supporting Document(s) SS-A/RO Ab,IgG Normal (applies to non-numeric r esults) [facility] REFERENCE VALUE------ <1.0 (Negative) SS-B/LA Ab,IgG Normal (applies to non-numeric r esults) [facility] REFERENCE VALUE------ <1.0 (Negative) Test Performed by: [place] [address] Fender Mechanic: Ricardo Flores M.D. Ph.D.; CLIA# [id number] ID Date Data Source [id number] 02/25/2020 06:32:00 PM [facility] Value Range Interpretation Code Description [facility] Supporting Document(s) FLOW MANAGER Ab,IgG result Normal (applies to non-numeri c results) [facility] REFERENCE VALUE------ <1.0 (Negative) Test Performed by: [place] [address] Fender Mechanic: Ricardo Flores M.D. Ph.D.; CLIA# [id number] ID Date Data Source [id number] 02/25/2020 06:32:00 PM [facility] Value Range Interpretation Code Description Data [facility] rce(s) Supporting Document(s) SCL 70 Ab,IgG result [facility] Interpretation: Positive (>=1.0) ------ REFERENCE VALUE <1.0 (Negative) Test Performed by: [place] [address] Fender Mechanic: Ricardo Flores M.D. Ph.D.; CLIA# [id number] ID Date Data Source [id number] 02/25/2020 06:32:00 PM EDT [facility] Value Range Interpretation Code Description Data Carol rce(s) Supporting Document(s) PHILIPP Interpretation Result Negative Normal (applies to no n-numeric results) [facility] Results were obtained with the [email or web address] NOV A Lite HEp-2 PHILIPP Kit by indirect immunofluorescence. Test performed or [place] [address] ID Date Data Source [id number] 02/25/2020 06:32:00 PM EDT [facility] Value Range Interpretation Code Description Data Carol rce(s) Supporting Document(s) Lund Ab,IgG result Normal (applies to non-nume nubia results) [facility] REFERENCE VALUE------ <1.0 (Negative) Test Performed by: [place] [address] Fender Mechanic: Ricardo Flores M.D. Ph.D.; CLIA# [id number] ID Date Data Source [id number] 02/24/2020 12:16:00 PM EDT [facility] Value Range Interpretation Code Description Data Carol rce(s) Supporting Document(s) Cyclic Citrullinated Pep Ab,S <5.00 Normal (applies t o non-numeric results) [facility] anti-CCP IgG antibodies were not detecte d. ID Date Data Source [id number] 02/24/2020 11:34:00 AM EDT [facility] Value Range Interpretation Code Description Data Carol rce(s) Supporting Document(s) Rheumatoid Factor 0.0-15.0 Normal (applies to non-numeri c results) [facility] ID Date Data Source [id number] 02/03/2020 10:05:00 AM EDT [facility] ([facility]) Name Value Range Interpretation Code Description Data Carol rce(s) Supporting Document(s) Coronavirus 2019 Nasopharygeal Laboratory test result [facility] ([facility]) This test was developed and its performa nce characteristics determined by [facility]. This test has not been FDA cleared or approved. This test has been authorized by FDA under an Emergency Use Authorization (EUA). This test is only authorized for the duration of time the declaration that circumstances exist justifying the authorization of the emergency use of in vitro diagnostic tests for detection of SARS-CoV-2 virus and/or diagnosis of COVID-19 infection under section 564(b)(1) of the Act, 21 U.S.C. 360bbb-3(b)(1), unless the authorization is terminated or revoked sooner. When diagnostic testing is negative, the possibility of a false negative result should be considered in the context of a patient's recent exposures and the presence of clinical signs and symptoms consistent with COVID-19. An individual without symptoms of COVID-19 and who is not shedding SARS-CoV-2 virus would expect to have a negative (not detected) result in this assay. Performed at: [facility] [id number] Fender Mechanic: Mariaelena Nguyen MD, Phone: [phone] Not Detected ID Date Data Source [id number] 02/03/2020 10:05:00 AM EDT [facility] Name Value Range Interpretation Code Description Data Carol rce(s) Supporting Document(s) SARS coronavirus 2 RNA [facility] This lab was ordered by [facility] and reported by [facility]. ID Date Data Source [id number] 01/12/2020 03:04:00 PM EDT [facility] ([facility]) Name Value Range Interpretation Code Description Data Carol rce(s) Supporting Document(s) Laboratory test finding (navigational concept) Laboratory test result [facility] ([facility]) ID Date Data Source [id number] 12/25/2019 10:32:00 AM EDT [facility] ([facility]) Name Value Range Interpretation Code Description Data Carol rce(s) Supporting Document(s) Coronavirus 2019 Nasopharygeal Laboratory test result [facility] ([facility]) Testing was performed using the john(R) SARS-CoV-2 test. This test was developed and its performance characteristics determined by [facility]. This test has not been FDA cleared or approved. This test has been authorized by FDA under an Emergency Use Authorization (EUA). This test is only authorized for the duration of time the declaration that circumstances exist justifying the authorization of the emergency use of in vitro diagnostic tests for detection of SARS-CoV-2 virus and/or diagnosis of COVID-19 infection under section 564(b)(1) of the Act, 21 U.S.C. 360bbb-3(b)(1), unless the authorization is terminated or revoked sooner. When diagnostic testing is negative, the possibility of a false negative result should be considered in the context of a patient's recent exposures and the presence of clinical signs and symptoms consistent with COVID-19. An individual without symptoms of COVID-19 and who is not shedding SARS-CoV-2 virus would expect to have a negative (not detected) result in this assay. Performed at: [facility] [id number] Fender Mechanic: Mariaelena Nguyen MD, Phone: [phone] Not Detected ID Date Data Source [id number] 12/25/2019 12:00:00 AM EDT [facility] Name Value Range Interpretation Code Description Data Carol rce(s) Supporting Document(s) SARS coronavirus 2 RNA [facility] This lab was ordered by [facility] and reported by [facility]. ID Date Data Source C REACTIVE PROTEIN QUANTITATIV (At [facility]) 12/20/2019 06:13 :26 AM EDT eCW1 ([facility]) Name Value Range Interpretation Code Description Data Carol rce(s) Supporting Document(s) < 0.30 C REACTIVE PROTEIN QUANTI TATIV eCW1 ([facility]) ID Date Data Source ERYTHROCYTE SEDIMENTATION RATE 12/20/2019 06:12:40 AM EDT eC W1 ([facility]) Name Value Range Interpretation Code Description Data Carol rce(s) Supporting Document(s) 15 ERYTHROCYTE SEDIMENTATION RATE eCW1 ([facility]) Procedure Social History Code Duration Value Status Description Data Source(s ) Smoking 07/13/2020 12:00:00 AM EST Never Smoker completed Never S moker eCW1 ([facility]) Smoking 06/14/2020 12:00:00 AM EST Patient has never smoked co mpleted Patient has never smoked [facility] ([facility]) Smoking 04/11/2020 12:00:00 AM EST Never Smoker completed Never S moker eCW1 ([facility]) Smoking 04/11/2020 12:00:00 AM EST Never Smoker completed Never S moker eCW1 ([facility]) Smoking 12/27/2019 12:00:00 AM EDT Never Smoker completed Never S moker eCW1 ([facility]) Smoking 12/27/2019 12:00:00 AM EDT Never Smoker completed Never S moker eCW1 ([facility]) Smoking 12/27/2019 12:00:00 AM EDT Never Smoker completed Never S moker eCW1 ([facility]) Smoking 12/27/2019 12:00:00 AM EDT Never Smoker completed Never S moker eCW1 ([facility]) Smoking 12/27/2019 12:00:00 AM EDT Never Smoker completed Never S moker eCW1 ([facility]) Smoking 12/24/2019 12:00:00 AM EDT Never Smoker completed Never S moker eCW1 ([facility]) Smoking 06/16/2019 12:00:00 AM EST Unknown if ever smoked comp leted Unknown if ever smoked [facility] ([facility]) Vital Signs ID Date Data Source UNK Name Value Range Interpretation Code Description Data Source(s) Diastolic blood pressure 70 mm[Hg] 70 mm[Hg] eCW1 ([facility]) Systolic blood pressure 120 mm[Hg] 120 mm[Hg] e CW1 ([facility]) Body temperature 98.2 [degF] 98.2 [degF] eCW1 ( [facility]) Respiratory rate 18 /min 18 /min eCW1 ([facility]) Heart rate 110 /min 110 /min eCW1 ([facility]) Body mass index (BMI) [Ratio] 26.95 kg/m2 26.95 kg/m2 eCW1 ([facility]) Body height 64 [in_i] 64 [in_i] eCW1 ([facility]) Body weight 157 [lb_av] 157 [lb_av] eCW1 ([facility]) Body mass index (BMI) [Ratio] 26.6 kg/m2 26.6 k g/m2 MEDENT ([facility], [facility]) Body height 64 [in_i] 64 [in_i] MEDENT ([facility], [facility]) 5'4" Body weight 155.00 [lb_av] 155.00 [lb_av] MEDEN T ([facility], [facility]) Body temperature 97.1 [degF] 97.1 [degF] MEDENT ([facility]) Oxygen saturation in Arterial blood by Pulse oximetry 98 % 98 % MEDENT ([facility], [facility]) Respiratory rate 16 /min 16 /min MEDENT ( [facility], [facility]) Heart rate 92 /min 92 /min MEDENT ([facility], [facility]) Diastolic blood pressure 90 mm[Hg] 90 mm[Hg] MEDENT ([facility], [facility]) Systolic blood pressure 142 mm[Hg] 142 mm[Hg] M EDENT ([facility], [facility]) Diastolic blood pressure 78 mm[Hg] 78 mm[Hg] eCW1 ([facility]) Systolic blood pressure 112 mm[Hg] 112 mm[Hg] e CW1 ([facility]) Body temperature 97.9 [degF] 97.9 [degF] eCW1 ( [facility]) Respiratory rate 18 /min 18 /min eCW1 ([facility]) Heart rate 112 /min 112 /min eCW1 ([facility]) Body mass index (BMI) [Ratio] 25.57 kg/m2 25.57 kg/m2 eCW1 ([facility]) Body height 64 [in_i] 64 [in_i] eCW1 ([facility]) Body weight 149 [lb_av] 149 [lb_av] eCW1 ([facility]) Body mass index (BMI) [Ratio] 25.6 kg/m2 25.6 k g/m2 MEDENT ([facility]) Body weight 149.00 [lb_av] 149.00 [lb_av] MEDEN T ([facility]) Body height 64 [in_i] 64 [in_i] MEDENT ([facility]) 5'4" Body temperature 97.0 [degF] 97.0 [degF] MEDENT ([facility]) Diastolic blood pressure 88 mm[Hg] 88 mm[Hg] eCW1 ([facility]) Systolic blood pressure 130 mm[Hg] 130 mm[Hg] e CW1 ([facility]) Body temperature 98.3 [degF] 98.3 [degF] eCW1 ( [facility]) Respiratory rate 18 /min 18 /min eCW1 ([facility]) Heart rate 113 /min 113 /min eCW1 ([facility]) Body mass index (BMI) [Ratio] 25.50 kg/m2 25.50 kg/m2 eCW1 ([facility]) Body height 64 [in_i] 64 [in_i] eCW1 ([facility]) Body weight 148.6 [lb_av] 148.6 [lb_av] eCW1 ([facility]) Diastolic blood pressure 80 mm[Hg] 80 mm[Hg] eCW1 ([facility]) Systolic blood pressure 126 mm[Hg] 126 mm[Hg] e CW1 ([facility]) Body temperature 97.8 [degF] 97.8 [degF] eCW1 ( [facility]) Respiratory rate 17 /min 17 /min eCW1 ([facility]) Heart rate 110 /min 110 /min eCW1 ([facility]) Body mass index (BMI) [Ratio] 25.68 kg/m2 25.68 kg/m2 eCW1 ([facility]) Body height 64 [in_i] 64 [in_i] W1 ([facility]) Body weight 149.6 [lb_av] 149.6 [lb_av] eCW1 ([facility]) Body mass index (BMI) [Ratio] 25.4 kg/m2 25.4 k g/m2 MEDENT ([facility], [facility]) Body height 64 [in_i] 64 [in_i] MEDENT ([facility], [facility]) 5'4" Body weight 148.00 [lb_av] 148.00 [lb_av] MEDEN T ([facility], [facility]) Body temperature 98.5 [degF] 98.5 [degF] MEDENT ([facility], [facility]) Oxygen saturation in Arterial blood by Pulse oximetry 98 % 98 % MEDENT ([facility]) Heart rate 110 /min 110 /min MEDENT ([facility], [facility]) Diastolic blood pressure 96 mm[Hg] 96 mm[Hg] MEDENT ([facility]) Systolic blood pressure 141 mm[Hg] 141 mm[Hg] [facility]) Body mass index (BMI) [Ratio] 25.4 kg/m2 25.4 k g/m2 MEDENT ([facility]) Body height 64 [in_i] 64 [in_i] [facility]) 5'4" Body weight 148.00 [lb_av] 148.00 [lb_av] MEDEN T ([facility], [facility]) Body temperature 98.6 [degF] 98.6 [degF] MEDENT ([facility], [facility]) Oxygen saturation in Arterial blood by Pulse oximetry 98 % 98 % MEDENT ([facility], [facility]) Heart rate 106 /min 106 /min MEDENT ([facility]) Diastolic blood pressure 90 mm[Hg] 90 mm[Hg] MEDENT ([facility], [facility]) Systolic blood pressure 141 mm[Hg] 141 mm[Hg] M EDENT ([facility], [facility]) Body height 64 [in_i] 64 [in_i] MEDENT ([facility]) 5'4" Body temperature 98.6 [degF] 98.6 [degF] MEDENT ([facility], [facility]) Oxygen saturation in Arterial blood by Pulse oximetry 98 % 98 % MEDENT ([facility]) Respiratory rate 17 /min 17 /min MEDENT ( [facility]) Heart rate 98 /min 98 /min MEDENT ([facility]) Diastolic blood pressure 90 mm[Hg] 90 mm[Hg] MEDENT ([facility]) Systolic blood pressure 124 mm[Hg] 124 mm[Hg] M EDENT ([facility]) Diastolic blood pressure 88 mm[Hg] 88 mm[Hg] eCW1 ([facility]) Systolic blood pressure 132 mm[Hg] 132 mm[Hg] e CW1 ([facility]) Body temperature 98.5 [degF] 98.5 [degF] eCW1 ( [facility]) Respiratory rate 17 /min 17 /min eCW1 ([facility]) Heart rate 118 /min 118 /min eCW1 ([facility]) Body mass index (BMI) [Ratio] 24.92 kg/m2 24.92 kg/m2 [facility] ([facility]) Body height 64 [in_us] 64 [in_us] eCW1 ([facility]) Body weight Measured 145.2 [lb_av] 145.2 [lb_av ] W1 ([facility]) Body mass index (BMI) [Ratio] 25.4 kg/m2 25.4 k g/m2 MEDENT ([facility]) Body height 64 [in_i] 64 [in_i] MEDENT ([facility]) 5'4" Body weight 148.00 [lb_av] 148.00 [lb_av] MEDEN T ([facility]) Body temperature 98.0 [degF] 98.0 [degF] MEDENT ([facility]) Oxygen saturation in Arterial blood by Pulse oximetry 98 % 98 % MEDENT ([facility], [facility]) Respiratory rate 16 /min 16 /min MEDENT ( [facility]) Heart rate 130 /min 130 /min MEDENT ([facility]) Diastolic blood pressure 80 mm[Hg] 80 mm[Hg] MEDENT ([facility]) Systolic blood pressure 127 mm[Hg] 127 mm[Hg] M EDENT ([facility], [facility]) Respiratory rate 18 /min 18 /min MEDENT ( [facility]) Body mass index (BMI) [Ratio] 25.4 kg/m2 25.4 k g/m2 MEDENT ([facility]) Body weight 148.00 [lb_av] 148.00 [lb_av] MEDEN T ([facility]) Body height 64 [in_i] 64 [in_i] MEDENT ([facility] 5'4" Respiratory rate 16 /min 16 /min MEDENT ( [facility]) Body mass index (BMI) [Ratio] 25.4 kg/m2 25.4 k g/m2 MEDENT ([facility]) Body weight 148.00 [lb_av] 148.00 [lb_av] MEDEN T ([facility]) Body height 64 [in_i] 64 [in_i] MEDENT ([facility] 5'4" Body weight 146 [lb_av] 146 [lb_av] KAYCEE [facility] Systolic blood pressure 134 mm[Hg] 134 mm[Hg] A THENA ([facility] ) Body mass index (BMI) [Ratio] 25.7 kg/m2 25.7 k g/m2 KAYCEE ([facility] ) Body height 63.25 [in_i] 63.25 [in_i] KAYCEE ([facility]) Diastolic blood pressure 82 mm[Hg] 82 mm[Hg] KAYCEE ([facility] ) Diastolic blood pressure 0 mm[Hg] Normal (applies to non-numeric results) 0 mm[Hg] Accumedic ([facility]) Systolic blood pressure 0 mm[Hg] Normal (applies t o non-numeric results) 0 mm[Hg] [facility] ([facility]) Body mass index (BMI) [Ratio] 0.00 kg/m2 No rmal (applies to non-numeric results) 0.00 kg/m2 Accumedic ([facility]) Body weight Measured 0.00 lbs Normal (applies to n on-numeric results) 0.00 lbs Accumedic ([facility]) Body height 0.00 in Normal (applies to non-numeric resu lts) 0.00 in [facility] ([facility]) Diastolic blood pressure 100 mm[Hg] 100 mm[Hg] eCW1 ([facility]) Systolic blood pressure 148 mm[Hg] 148 mm[Hg] e CW1 ([facility]) Body temperature 98.5 [degF] 98.5 [degF] eCW1 ( [facility]) Respiratory rate 18 /min 18 /min eCW1 ([facility]) Heart rate 92 /min 92 /min eCW1 ([facility]) Body mass index (BMI) [Ratio] 25.40 kg/m2 25.40 kg/m2 eCW1 ([facility]) Body height 64 [in_us] 64 [in_us] eCW1 ([facility]) Body weight Measured 148 [lb_av] 148 [lb_av] eC W1 ([facility]) Patient Treatment Plan of Care Planned Activity Planned Date Details Description Data Source (s) Hydroxychloroquine Sulfate 200 MG Oral Tablet [[place]] 07/13/2020 12:00:00 AM EST eCW1 ([facility]) Prednisone 10 MG Oral Tablet 12/27/2019 12:00:00 AM EDT eCW1 ([facility]) Prednisone 10 MG Oral Tablet 12/27/2019 12:00:00 AM EDT eCW1 ([facility]) Prednisone 10 MG Oral Tablet 12/27/2019 12:00:00 AM EDT eCW1 ([facility]) Prednisone 10 MG Oral Tablet 12/27/2019 12:00:00 AM EDT eCW1 ([facility]) Prednisone 10 MG Oral Tablet 12/27/2019 12:00:00 AM EDT eCW1 ([facility]) meloxicam 7.5 MG Oral Tablet 08/12/2019 12:00:00 AM EST eCW1 ([facility]) duloxetine 20 MG Delayed Release Oral Capsule [Cymbalt a] 08/12/2019 12:00:00 AM EST eCW1 ([facility]) Oseltamivir 75 MG Oral Capsule [Tamiflu] 07/08/2019 12:00:00 AM EST eCW1 ([facility]) Oseltamivir 75 MG Oral Capsule [Tamiflu] 07/08/2019 12:00:00 AM EST eCW1 ([facility]) Amoxicillin 875 MG / Clavulanate 125 MG Oral Tablet 05/31/20 19 12:00:00 AM EST eCW1 ([facility]) Align 4 MG 05/31/2019 12:00:00 AM EST e CW1 ([facility])
[2020-07-24] MEDS ORDERED: LIDOCAINE 5% (LIDODERM) PATCH TD STA (16:32)
--- OUTSIDE RECORDS SUMMARY | 2020-07-24 17:13 | CCD ---
Author Author [facility] Organization [facility] Address Unknown Phone Unavailable Support Name Relationship Address Phone [facility] Next Of Kin [address] [place] [address] [facility] Next Of Kin [address] [place] [address] [facility] Next Of Kin [address] [place] [address] [facility] Next Of Kin [address] [facility] [address] [place] [address] [employer] Next Of Kin [address] [place] [address] [employer] Next [place] [address] [place] [address] [place] [address] AV[facility] Next Of Kin [address] [facility] [address] [place] [address] ESTEFANIA A GIN Next Of Kin [address] [place] [address] [place] [address] [place] Next Of Kin [address] [place] [address] UE Next Of Kin Unknown Unavailable IHC Next Of Kin [address] [place] [address] [employer] [place] [address] [facility] [employer] Next Of Kin [address] [place] [address] [place] GU[place]LE GAYLE Next [place] [address] [place] [address] [employer] [place] [address] 315- [facility] Next Of Kin [address] [place] [address] AHRANDARuiz YANIRA Next Of Kin [address] [facility] [place] [address] hTa SINGH Next Of Kin [address] [place], [place] [address] [facility] Next Of Kin [address] [place] [address] Ahlstorm, Yanira ECON [address] [facility] [place] [address] Unavailable AHLSTROM, YAINRA ECON [address] [facility] [place] [address] Unavailable Care Team Providers Care Engineering Leader Name Role Phone Qandah, Basem Jonathan Aziz [...] Aziz DO Unavailable Unavailab le Damian, Payton RAIL FLAW DETECTOR OPERATOR Unavailable Unavailable Damian, Payton RAIL FLAW DETECTOR OPERATOR Unavailable Unavailable Damian, Payton RAIL FLAW DETECTOR OPERATOR Unavailable Unavailable Damian, Payton RAIL FLAW DETECTOR OPERATOR Unavailable Unavailable Damian, Payton RAIL FLAW DETECTOR OPERATOR Unavailable Unavailable Damian, Payton RAIL FLAW DETECTOR OPERATOR Unavailable Unavailable Damian, Payton RAIL FLAW DETECTOR OPERATOR Unavailable Unavailable Damian, Payton RAIL FLAW DETECTOR OPERATOR Unavailable Unavailable Damian, Payton RAIL FLAW DETECTOR OPERATOR Unavailable Unavailable Damian, Payton RAIL FLAW DETECTOR OPERATOR Unavailable Unavailable Damian, Payton RAIL FLAW DETECTOR OPERATOR Unavailable Unavailable Amanda, R Tristan PT Unavailable [...] LETTIERE, A LINDA PA Unavailable Unavailable Sina, [id number] MD Royal NICOLE Unavailable [phone] Sina, [id number] MD Royal NICOLE Unavailable + [phone] Sina, [id number] MD Royal NICOLE Unavailable + [phone] Sina, [id number] MD Royal NICOLE Unavailable + [phone] Sina, [id number] MD Royal NICOLE Unavailable + [phone] Sina, [id number] MD Royal NICOLE Unavailable Sina, [id number] MD Royal MD Unavailable Sina, [id number] MD Royal MD Unavailable Sina, [id number] MD Royal MD Unavailable Sina, [id number] MD Royal MD Unavailable Sina, [id number] MD Royal MD Unavailable Sina, [id number] MD Royal MD Unavailable Sina, [id number] MD Royal MD Unavailable Sina, [id number] MD Royal MD Unavailable Sina, [id number] MD Royal MD Unavailable Sina, [id number] MD Royal MD Unavailable Sina, [id number] MD Royal MD Unavailable Sina, [id number] MD Royal MD Unavailable Sina, [id number] MD Royal MD Unavailable Sina, [id number] MD Royal MD Unavailable Sina, [id number] MD Royal MD Unavailable Sina, [id number] MD Royal MD Unavailable Sina, [id number] MD Royal MD Unavailable Sina, [id number] MD Royal MD Unavailable Sina, [id number] MD Royal MD Unavailable Sina, [id number] MD Royal MD Unavailable Sina, [id number] MD Royal MD Unavailable Sina, [id number] MD Royal MD Unavailable [facility], [id number] MD Royal NICOLE Unavailable [phone] Sina, [id number] MD Royal NICOLE Unavailable [phone] Sina, [id number] MD Royal NICOLE Unavailable [phone] JOSEP WILLIAM Unavailable Unavailable Lalo SINGLETON MD [...] Alfred AVENDAÑO MD Unavailable Unavailable DESJARLAIS, VAMSI RAIL FLAW DETECTOR OPERATOR Unavailable Unavailable DESJARLAIS, VAMSI RAIL FLAW DETECTOR OPERATOR Unavailable Unavailable DESJARLAIS, VAMSI RAIL FLAW DETECTOR OPERATOR Unavailable Unavailable DESJARLAIS, VAMSI RAIL FLAW DETECTOR OPERATOR Unavailable Unavailable DESJARLAIS, VAMSI RAIL FLAW DETECTOR OPERATOR Unavailable Unavailable DESJARLAIS, VAMSI RAIL FLAW DETECTOR OPERATOR Unavailable Unavailable DESJARLAIS, VAMSI RAIL FLAW DETECTOR OPERATOR Unavailable Unavailable DESJARLAIS, VAMSI RAIL FLAW DETECTOR OPERATOR Unavailable Unavailable DESJARLAIS, VAMSI RAIL FLAW DETECTOR OPERATOR Unavailable Unavailable LINDA JAVIER Unavailable Unavailable Juliana [...] Gonzalez MD Unavailable Unavailable Huff, L Carlos NCIOLE Unavailable Unavailable Huff, L Carlos NICOLE Unavailable [...] is protected by Article 27-F of the [facility] Public Health law. If you continue you may have access to information: Regarding HIV / AIDS; Provided by facilities licensed or operated by the [facility] Office of Mental Health; or Provided by the [facility] Office for People With Developmental Disabilities. If such information is present, then the following [facility] mandated warning applies: This information has been [...] law may result in a fine or senior care sentence or both. A general authorization for the release of medical or other information is NOT sufficient authorization for further disc losure. Allergies and Adverse Reactions Type Description Substance Reaction Status Data Source(s ) Drug allergy Reglan Metoclopramide Rash Active eCW1 ([facility]) Drug allergy Morphine Sulfate Morphine Dyspnea Active eCW1 ( [facility]) Drug allergy Guaifenesin Drug allergy high heart rate Active eCW 1 ([facility]) Mylanta Mylanta Mylanta hives, breathing difficulties and ch est pain Active eCW1 ([facility]) Trazodone Trazodone Trazodone Migraine Active eCW1 ([facility]) SYSTEMIC NO ALLERGIES ON FILE NO ALLERGIES ON FILE [facility] Propensity to adverse reactions to substance morphine Morphine Sulfate 15 MG Oral Tablet Active [facility] ([facility]) Propensity to adverse reactions to substance guanfacine HCl 24 HR Guanfacine 1 MG Extended Release Oral Tablet [Intuniv] Active [facility] ([facility]) Family History Family Member Name Family Member Gender Family Member Status Date o f Status Description Data Source(s) Unknown Unknown Problem MEDENT ([facility]) Encounters Encounter Providers Location Date Indications Data Source(s ) O Attender: Negar TSE 021 02:02:04 PM EST - 07/14/2020 02:24:38 PM EST DocuTap ([facility] ) [place] [address] [facility] [address] 07/13/2020 12:00:00 AM EST eCW1 [facility] Outpatient Attender: VAMSI CANALES NP 06/28/2020 09: 27:00 AM [facility] Outpatient Attender: LINDA tan 06/14/2020 04:15:00 PM EST MEDENT ([facility]) Outpatient Attender: VAMSI CANALES NP 06/07/2020 10: 14:00 AM [facility] Outpatient Attender: FLORI WETZEL DO [facility] 05/24/2020 12:30:00 PM EST [facility]) Outpatient Attender: [id number] Royal Andino MD [facility] 05/23/2020 01:34:00 PM EST - 05/23/2020 01:35:00 PM EST [facility] Patient discharged. Outpatient Attender: VAMSI CANALES NP 04/21/2020 10: 31:00 AM [facility] Outpatient [address] [facility] [address] 04/11/2020 12:00:00 AM EST eCW1 ([facility]) Unknown [address] [facility] [address] 04/05/2020 12:00:00 AM EDT eCW1 ([facility]) [place]patient [address] [facility] [address] 04/04/2020 12:00:00 AM EDT eCW1 [facility]) Outpatient Attender: Tristan Cheatham PT [facility]ORT-[facility]D 03/10 07:43:00 AM EDT - 03/31/2020 07:44:00 AM EDT I73.00, R76.8 [facility] I73.00, R76.8 Patient discharged. Outpatient Attender: VAMSI CANALES NP 03/24/2020 01: 55:00 PM [facility] Unknown [address] [facility] [address] 03/16/2020 12:00:00 AM EDT eCW1 ([facility]) Outpatient Attender: LINDA JAVIER 03/15/2020 04:00:00 PM [facility] Outpatient Attender: LINDA JAVIER 02/29/2020 03:00:00 PM [facility] Admission cancelled. Disregard status an d admitted date. Outpatient Attender: Tristan Cheatham PT [facility]ORT-[facility]PSCARHE 08:43:00 AM EDT - 02/24/2020 08:44:00 AM EDT I73.00,R76.8 [facility] I73.00,R76.8 Patient discharged. Outpatient Attender: VAMSI CANALES NP 02/22/2020 11: 47:00 AM [facility] Office Visit Attender: Carlos Huff MD Physical Therapy 2019 10:45:00 AM EDT MEDENT ([facility]) Outpatient Attender: VAMSI CANALES NP 01/21/2020 11: 20:00 AM [facility] Office Visit Attender: Carlos Huff MD Physical Therapy 2019 10:45:00 AM EDT MEDENT ([facility]) [place] [address] [facility] [address] 12/27/2019 12:00:00 AM EDT eCW1 ([facility]) Unknown [address] [facility] [address] 12/24/2019 12:00:00 AM EDT eCW1 ([facility]) Outpatient Attender: VAMSI CANALES NP 12/23/2019 10: 00:00 AM [facility] Unknown [address] [facility] [address] 12/23/2019 12:00:00 AM EDT eCW1 ([facility]) Out[place] [address] [facility] [address] 12/17/2019 12:00:00 AM EDT eCW1 ([facility]) Outpatient Attender: Carlos Huff MD Physical Therapy 11/22/2019 0 2:45:00 PM EDT MEDENT ([facility]) Outpatient Attender: WILLIAM CAR 11/19/2019 10:00:00 AM [facility] Outpatient Attender: VAMSI CANALES NP 11/05/2019 03: 20:00 PM [facility] Outpatient Attender: ARI Pruett ry 11/04/2019 12:15:00 PM EDT MEDENT ([facility]) Outpatient Attender: ARI Pruett ry 11/03/2019 02:30:00 PM EDT MEDENT ([facility]) [address] [address] 11/03/2019 12:00:00 AM EDT eCW1 [facility]) Outpatient Attender: Payton rodas 10/29/2019 05:15:00 PM EDT MEDENT ([facility]) [facility] [address] [place] [address], [place] [address] 10/19/2019 12:00:00 AM EDT eCW1 ([facility]) [address] [address] 10/19/2019 12:00:00 AM EDT eCW1 ([facility]) [facility] [address] [place] [address], [place] [address] 10/19/2019 12:00:00 AM EDT eCW1 ([facility]) Outpatient Attender: VAMSI CANALES NP 10/08/2019 01: 00:00 PM [facility] [address] [facility] [address] 09/20/2019 12:00:00 AM EDT eCW1 [facility] 09/01/2019 12:00:00 AM EDT eCW1 ([facility]) [address] [address] 08/31/2019 12:00:00 AM EDT eCW1 ([facility]) [address] [place] [address] 08/12/2019 12:00:00 AM EST eCW1 ([facility]) Outpatient Referrer: Ravi Escamilla MD 08/10/2019 03:37:00 PM EST [facility] [address] [place] [address] 08/04/2019 12:00:00 AM EST eCW1 ([facility]) Attender: RICARDO SINGLETON MD 5F-FLCS 08/02/2019 11:03:52 A M [facility] Outpatient Attender: LINDA tan 08/01/2019 08:35:00 AM EST MEDENT ([facility]) Outpatient 5F-PW 07/23/2019 01:43:12 PM EST - 020 11:59:00 PM [facility] Patient discharged. [address] [address] 07/22/2019 12:00:00 AM EST eCW1 ([facility]) [address] [address] 07/22/2019 12:00:00 AM EST eCW1 ([facility]) [address] [address] 07/22/2019 12:00:00 AM EST eCW1 ([facility]) 07/15/2019 01:24:43 PM EST [facility] 5F-FCT 07/09/2019 01:05:[address] [address] 07/09/2019 12:00:00 AM EST eCW1 ([facility]) [facility] [place] [address] [facility] [address] 07/07/2019 12:00:00 AM EST eCW1 ([facility]) Outpatient Attender: Farrukh Rivera DO [facility] 07/05/2019 01:30:00 P M EST MEDENT ([facility]) 07/04/2019 08:20:02 AM [facility] 07/03/2019 01:46:07 PM [facility] 07/03/2019 10:24:12 AM [facility] 07/03/2019 10:23:57 AM [facility] 06/30/2019 06:03:25 PM [facility] 06/30/2019 12:42:59 PM [facility] 06/30/2019 12:27:01 PM [facility] Attender: Farrukh Rivera DO 5F-FLCS 06/30/2019 12:24:30 PM [facility] 06/30/2019 08:14:46 AM [facility] Flori Wetzel, DO: [address] , [place] [address], Ph. Attender: FLORI WETZEL DO [facility] Main Schedule 06/30/2019 12:00:00 AM EST KAYCEE ([facility]) 06/29/2019 03:27:24 PM [facility] Outpatient Attender: PAXTON AVENDAÑO MD [facility] 06/16/2019 04:00:00 AM EST - 06/16/2019 04:00:00 AM EST [facility] ([facility]) Attender: PAXTON AVENDAÑO MD 06/16/2019 12:00:00 A M EST [facility] ([facility] [address] [place] [address] 05/31/2019 12:00:00 AM EST eCW1 ([facility]) Functional Status Medications Medication Brand Name Start Date Product Form Dose Route Admi nistrative Instructions Pharmacy Instructions Status Indications Reaction Description Data Source(s) Hydroxychloroquine Sulfate 200 MG Oral Tablet [Plaquen il] Plaquenil 200 MG Plaquenil 200 MG 07/13/2020 12:00:00 AM EST a ctive Plaquenil 200 MG eCW1 ([facility]) Hydrocortisone 10 MG/ML / Neomycin 3.5 M G/ML / Polymyxin B [id number] UNT/ML Otic Solution Iqayjazt-Xhaexqtdf-RS 06/14/2020 12:00:00 AM EST AURICU LAR active MEDENT ([facility]) dexlansoprazole 60 MG Delayed Release Oral Capsule [Dexilant ] Dexilant 05/01/2020 12:00:00 AM EST ORAL active MEDENT ([facility]) Prednisone 10 MG Oral Tablet PredniSONE 10 MG PredniSONE 10 MG 12/27/2019 12:00:00 AM EDT active PredniSO NE 10 MG eCW1 ([facility]) Prednisone 10 MG Oral Tablet PredniSONE 10 MG PredniSONE 10 MG 12/27/2019 12:00:00 AM EDT active PredniSO NE 10 MG eCW1 ([facility]) Prednisone 10 MG Oral Tablet PredniSONE 10 MG PredniSONE 10 MG 12/27/2019 12:00:00 AM EDT active PredniSO NE 10 MG eCW1 ([facility]) Prednisone 10 MG Oral Tablet PredniSONE 10 MG PredniSONE 10 MG 12/27/2019 12:00:00 AM EDT active PredniSO NE 10 MG eCW1 ([facility]) Prednisone 10 MG Oral Tablet PredniSONE 10 MG PredniSONE 10 MG 12/27/2019 12:00:00 AM EDT active PredniSO NE 10 MG eCW1 ([facility]) Triamcinolone Acetonide 0.001 MG/MG Oral Paste Triamci nolone Acetonide 0.1 % Triamcinolone Acetonide 0.1 % 12/17/2019 12:00:00 AM EDT active Triamcinolone Acetonide 0.1 % eCW1 ([facility]) Triamcinolone Acetonide 0.001 MG/MG Oral Paste Triamci nolone Acetonide 0.1 % Triamcinolone Acetonide 0.1 % 12/17/2019 12:00:00 AM EDT active Triamcinolone Acetonide 0.1 % eCW1 ([facility]) Triamcinolone Acetonide 0.001 MG/MG Oral Paste Triamci nolone Acetonide 0.1 % Triamcinolone Acetonide 0.1 % 12/17/2019 12:00:00 AM EDT active Triamcinolone Acetonide 0.1 % eCW1 ([facility]) Triamcinolone Acetonide 0.001 MG/MG Oral Paste Triamci nolone Acetonide 0.1 % Triamcinolone Acetonide 0.1 % 12/17/2019 12:00:00 AM EDT active Triamcinolone Acetonide 0.1 % eCW1 ([facility]) Triamcinolone Acetonide 0.001 MG/MG Oral Paste Triamci nolone Acetonide 0.1 % Triamcinolone Acetonide 0.1 % 12/17/2019 12:00:00 AM EDT active Triamcinolone Acetonide 0.1 % eCW1 ([facility]) Triamcinolone Acetonide 0.001 MG/MG Oral Paste Triamci nolone Acetonide 0.1 % Triamcinolone Acetonide 0.1 % 12/17/2019 12:00:00 AM EDT active Triamcinolone Acetonide 0.1 % eCW1 ([facility]) Rocephin/Ceftriaxone Sodium Injection Per 250 MG 11/03 12:00:00 AM EDT completed MEDENT ([facility]) Medication administered onsite Rocephin/Ceftriaxone Sodium Injection Per 250 MG 11/02 12:00:00 AM EDT completed MEDENT ([facility]) Medication administered onsite Prednisone 20 MG Oral Tablet Prednisone 10/29/2019 12:00:00 AM EDT completed MEDENT ([facility]) duloxetine 20 MG Delayed Release Oral Capsule [Cymbalt a] Cymbalta 20 MG Cymbalta 20 MG 08/12/2019 12:00:00 AM EST active 1 capsule eCW1 ([facility]) meloxicam 7.5 MG Oral Tablet Meloxicam 7.5 MG Meloxicam 7.5 MG 08/12/2019 12:00:00 AM EST active 1 tablet eCW1 ([facility]) Oseltamivir 75 MG Oral Capsule Oseltamivir Phosphate 08/01/2019 12:00:00 AM EST ORAL completed MEDENT ([facility]) Xofluza Xofluza 08/01/2019 12:00:00 AM EST complet ed MEDENT ([facility]) Oseltamivir 75 MG Oral Capsule [Tamiflu] Tamiflu 75 MG Tamif sabino 75 MG 07/08/2019 12:00:00 AM EST active 1 capsul e eCW1 ([facility]) Oseltamivir 75 MG Oral Capsule [Tamiflu] Tamiflu 75 MG Tamif sabino 75 MG 07/08/2019 12:00:00 AM EST active 1 capsul e eCW1 ([facility]) 24 HR venlafaxine 150 MG Extended Release Oral Capsule venla faxine 06/16/2019 12:00:00 AM EST 150 mg completed [id number] venlafaxin e 06/16/2019 08/15/2019 every morning 30 150 mg capsule,extended release 24hr [id number] [facility] [id number] Psychiatry Accumed ic ([facility]) 24 HR Amphetamine aspartate 3.75 MG / Am phetamine Sulfate 3.75 MG / Dextroamphetamine saccharate 3.75 MG / Dextroamphetamine Sulfate 3.75 MG Extended Release Oral Capsule [Adderall] Adderall XR 06/08/2019 12:00:00 AM EST 15 mg by mouth completed [id number] Adderall XR by [facility] [id number] 06/08/2019 07/08/2019 twice a day 30 15 mg capsule,extended release 24hr [id number] Vamsi Dill [id number] Nurse Practitioner [facility] ([facility]) Align 4 MG Align 4 MG 05/31/2019 12:00:00 AM EST active Align 4 MG eCW1 ([facility]) Align 4 MG Align 4 MG 05/31/2019 12:00:00 AM EST a ctive 1 tab eCW1 ([facility]) Align 4 MG Align 4 MG 05/31/2019 12:00:00 AM EST active Align 4 MG eCW1 ([facility]) Amoxicillin 875 MG / Clavulanate 125 MG Oral Tablet Amoxicillin-Pot Clavulanate 875-125 MG Amoxicillin-Pot Clavulanate 875-125 MG 05/31/2019 12:00:00 AM ES T active 1 tablet eCW1 ([facility]) Align 4 MG Align 4 MG 05/31/2019 12:00:00 AM EST active Align 4 MG eCW1 ([facility]) Align 4 MG Align 4 MG 05/31/2019 12:00:00 AM EST active Align 4 MG eCW1 ([facility]) Align 4 MG Align 4 MG 05/31/2019 12:00:00 AM EST a ctive 1 tab eCW1 ([facility]) Align 4 MG Align 4 MG 05/31/2019 12:00:00 AM EST active Align 4 MG eCW1 ([facility]) Align 4 MG Align 4 MG 05/31/2019 12:00:00 AM EST active Align 4 MG eCW1 ([facility]) Insurance Providers Payer name Policy type / Coverage type Policy ID Covered green party ID Covered green party's relationship to adamson Policy Adamson Plan Information UMR [facility] [id number] WI2 [id number] [facility] emp [id number] Employ ee [id number] UMR [id number] SPO [id number] UMR [id number] SPO [id number] SELF PAY UNAVAILABLE S UNAVAILA BLE UMR [id number] S [id number] UMR O [id number] S [id number] UMR NONE S NONE [facility] [id number] Spouse 1 [id number] [facility] [id number] Spouse [id number] ANSI-Commercial [id number] ANSI-Commercial [id number] ANSI-Commercial [id number] [facility] Commercial [id number] Family Dependent [id number] ANSI-Commercial [id number] ANSI-Commercial [id number] [facility] [id number] [facility] [id number] ANSI-Commercial [id number] ANSI-Commercial [id number] ANSI-Commercial [id number] ANSI-Commercial [id number] ANSI-Commercial [id number] ANSI-Commercial [id number] ANSI-Commercial [id number] ANSI-Commercial [id number] [facility] [id number] SP [id number] ANSI-Commercial [id number] ANSI-Commercial [id number] ANSI-Commercial [id number] ANSI-Commercial [id number] ANSI-Commercial [id number] [facility] ([facility]) [id number] Family Dependent [id number] ANSI-Commercial [id number] ANSI-Commercial [id number] ANSI-Commercial [id number] [facility] HEA [id number] SP [id number] COMMERCIAL HEA [id number] SP [id number] [facility] [id number] 2 [id number] ANSI-Commercial [id number] ANSI-Commercial [id number] ANSI-Commercial [id number] ANSI-Commercial [id number] ANSI-Commercial [id number] ANSI-Commercial [id number] ANSI-Commercial [id number] ANSI-Commercial [id number] ANSI-Commercial [id number] ANSI-Commercial [id number] [employer] [id number] HU2 [id number] [employer] P[employer] O [id number] S [id number] [employer] (HMO) [id number] Fa berny Dependent [id number] [employer] (HMO) [id number] Fa berny Dependent [id number] [employer] HEA [id number] SP [id number] [employer]-O/P UNAVAILABLE UNAVAILA BLE ATLANTIC TESTING ADAM O [id number] S [id number] [employer] Commercial Family Dependent [employer] COMP [id number] SP [id number] [employer] [id number] HU2 [id number] [facility] (WAITING ON CARRIER) [id number] HU2 [id number] [employer] COMP UNAVAILABLE UNAVAILABLE [employer] [id number] HU2 [id number] [employer] F [id number] SPOUSE [id number] [employer] F [id number] SPOUSE [id number] [employer] Commercial Family Dependent [employer] Commercial Family Dependent [employer]-O/P [id number] 01 [id number] [employer]-O/P [id number] 18 [id number] [employer] [id number] 1 [id number] [employer] [id number] 1 [id number] Problems, Conditions, and Diagnoses Code Display Name Description Problem Type Effective Dates Data Source(s) Z98.84 308827062 S/P gastric bypass Problem 07/13/2020 12:00: 00 AM EST eCW1 ([facility]) J30.1 [id number] Allergic rhinitis due to pollen, unspecif ied seasonality Problem 04/11/2020 12:00:00 AM EST eCW1 ([facility]) M35.9 [id number] Connective tissue disease, undifferentiat ed Problem 04/11/2020 12:00:00 AM EST eCW1 ([facility]) K12.0 [id number] Canker sores oral Problem 12/17/2019 12:00:0 0 AM EDT eCW1 ([facility]) F41.1 Generalized anxiety disorder Generalized Anxiety Disor zahraa Condition 06/16/2019 12:00:00 AM EST [facility] ([facility]) F60.3 Borderline personality disorder BORDERLINE PERSONALITY DISORDER Diagnosis 06/07/2020 10:14:00 AM EST [facility] F41.1 Generalized anxiety disorder GENERALIZED ANXIETY DISOR ZAHRAA Diagnosis 06/07/2020 10:14:00 AM [facility] F41.0 Panic disorder [episodic paroxysmal anxi ety] PANIC DISORDER [EPISODIC PAROXYSMAL ANXIETY] Diagnosis 06/07/2020 10:14:00 AM [facility] F90.9 Attention-deficit hyperactivity disorder , unspecified type ATTENTION- DEFICIT HYPERACTIVITY DISORDER, UNSPECIFIED TYPE Diagnosis 06/07 10:14:00 AM [facility] R40.0 Somnolence SOMNOLENCE Diagnosis 04/21/2020 10:31:00 AM [facility] F43.10 Post-traumatic stress disorder, unspecif ied POST-TRAUMATIC STRESS DISORDER, UNSPECIFIED Diagnosis 04/21/2020 10:31:00 AM [facility] amarilis R76.8 Other specified abnormal immunological f indings in serum OTHER SPECIFIED ABNORMAL IMMUNOLOGICAL FINDINGS IN SERUM Diagnosis 02/24/2020 08:43:00 AM [facility] I73.00 Raynaud's syndrome without gangrene RAYNAUD'S SY NDROME WITHOUT GANGRENE Diagnosis 02/24/2020 08:43:00 AM [facility] F33.0 Major depressive disorder, recurrent, mi ld MAJOR DEPRESSIVE DISORDER, RECURRENT, MILD Diagnosis 02/22/2020 11:47:00 AM [facility] F60.9 Personality disorder, unspecified PERSONALITY DI SORDER, UNSPECIFIED Diagnosis 12/23/2019 10:00:00 AM [facility] Surgeries/Procedures Procedure Description Date Indications Data Source(s) OFFICE OUTPATIENT NEW 20 MINUTES OFFICE/OUTPATIENT VISIT NEW 02/24/2020 12:00:00 AM [facility] EXTRACTABLE NUCLEAR ANTIGEN ANTIBODY ANY METHOD NUCLEAR ANTI GEN ANTIBODY 02/24/2020 12:00:00 AM [facility] GAMMAGLOBULIN IGA IGD IGG IGM EACH ASSAY IGA/IGD/IGG/IGM EAC H 02/24/2020 12:00:00 AM [facility] ANTINUCLEAR ANTIBODIES PHILIPP ANTINUCLEAR ANTIBODIES 02/24/2020 12:00: 00 AM [facility] CYCLIC CITRULLINATED PEPTIDE ANTIBODY CCP ANTIBODY 02/24/2020 12:00 :00 AM [facility] RHEUMATOID FACTOR QUANTITATIVE RHEUMATOID FACTOR QUANT 02/23 12:00:00 AM [facility] COLLECTION VENOUS BLOOD VENIPUNCTURE ROUTINE VENIPUNCTURE 12:00:00 AM EDT [facility] Endoscopy Wrist W/Release Transverse Carpal Ligament 02/08/2020 12:00:00 AM EDT [facility] ([facility]) RADEX WRIST COMPLETE MINIMUM 3 VIEWS 01/11/2020 12:00: 00 AM EDT [facility] ([facility]) Endoscopy Wrist W/Release Transverse Carpal Ligament 12/29/2019 12:00:00 AM EDT [facility] ([facility]) RADEX WRIST COMPLETE MINIMUM 3 VIEWS 11/22/2019 12:00: 00 AM EDT [facility] ([facility]) Therapeutic, Prophylactic Or Diagnostic Injection Subq/Im 11/04/2019 12:00:00 AM EDT [facility] ([facility]) Therapeutic, Prophylactic Or Diagnostic Injection Subq/Im 11/03/2019 12:00:00 AM EDT [facility] ([facility]) Therapeutic, Prophylactic Or Diagnostic Injection Subq/Im 10/29/2019 12:00:00 AM EDT [facility] ([facility]) OFFICE OUTPATIENT VISIT 15 MINUTES 06/16 12:00:00 AM EST - 06/16/2019 12:00:00 AM EST [facility] ([facility]) OFFICE OUTPATIENT VISIT 15 MINUTES 06/16/2019 12:00:00 AM EST [facility] ([facility]) Results ID Date Data Source VITAMIN B12 LEVEL 04/11/2020 12:00:00 AM EST eCW1 ([facility]) Name Value Range Interpretation Code Description Data Carol rce(s) Supporting Document(s) 371 196-580 eCW1 ([facility]) ID Date Data Source PTH INTACT 04/11/2020 12:00:00 AM EST eCW1 ([facility]) Name Value Range Interpretation Code Description Data Carol rce(s) Supporting Document(s) 94.4 18.5-88.0 eCW1 ([facility]) ID Date Data Source VITAMIN D 25-HYDROXY 04/11/2020 12:00:00 AM EST eCW1 ([facility]) Name Value Range Interpretation Code Description Data Carol rce(s) Supporting Document(s) 29.5 30.0-100.0 eCW1 ([facility]) ID Date Data Source FREE T4 & TSH PANEL 04/11/2020 12:00:00 AM EST eCW1 ([facility]) Name Value Range Interpretation Code Description Data Carol rce(s) Supporting Document(s) 1.360 0.358-3.740 eCW1 ([facility]) 0.97 0.76-1.46 eCW1 ([facility]) ID Date Data Source FERRITIN 04/11/2020 12:00:00 AM EST eCW1 ([facility]) Name Value Range Interpretation Code Description Data Carol rce(s) Supporting Document(s) 6 8-084 eCW1 ([facility]) ID Date Data Source LIPID PANEL (CARDIAC RISK) 04/11/2020 12:00:00 AM EST eCW1 ( [facility]) Name Value Range Interpretation Code Description Data Carol rce(s) Supporting Document(s) Cholesterol in HDL [Moles/volume] in Serum or Plasma 84 >40 eCW1 ([facility]) Triglyceride [Mass/volume] in Serum or Plasma by calculation 76 <150 eCW1 ([facility]) Cholesterol in LDL [Mass/volume] in Serum or Plasma by calculation 11 5 <100 eCW1 ([facility]) Cholesterol [Moles/volume] in Serum or Plasma 214 <200 eCW1 ([facility]) 130 eCW1 ([facility]) 2.547 <5 eCW1 ([facility]) ID Date Data Source IRON (FE) 04/11/2020 12:00:00 AM EST eCW1 ([facility]) Name Value Range Interpretation Code Description Data Carol rce(s) Supporting Document(s) 93 50-170 eCW1 ([facility]) ID Date Data Source Comprehensive Metabolic Profile (CMP) 04/11/2020 12:00:00 AM EST eCW1 ([facility]) Name Value Range Interpretation Code Description Data Carol rce(s) Supporting Document(s) 82 70-100 eCW1 ([facility]) 18 7-18 eCW1 ([facility]) 0.77 0.55-1.30 eCW1 ([facility]) 143 136-145 eCW1 ([facility]) 3.9 3.5-5.1 eCW1 ([facility]) > 60.0 >60 eCW1 ([facility]) 28 21-32 eCW1 ([facility]) 111 98-107 eCW1 ([facility]) 12 7-37 eCW1 ([facility]) 8.8 8.5-10.1 eCW1 ([facility]) 14 12-78 eCW1 ([facility]) 0.9 0.2-1.0 eCW1 ([facility]) 60 45-117 eCW1 ([facility]) 4.0 3.2-5.2 eCW1 ([facility]) 6.6 6.4-8.2 eCW1 ([facility]) 1.5 1.2-2.2 eCW1 ([facility]) ID Date Data Source CBC with Differential 04/11/2020 12:00:00 AM EST eCW1 ([facility]) Name Value Range Interpretation Code Description Data Carol rce(s) Supporting Document(s) 11.9 12.0-15.5 eCW1 ([facility]) 5.0 4.0-10.0 eCW1 ([facility]) 4.07 4.00-5.40 eCW1 ([facility]) 90.9 80.0-96.0 eCW1 ([facility]) 32.2 32.0-36.5 eCW1 ([facility]) 29.2 27.0-33.0 eCW1 ([facility]) 37.0 36.0-47.0 eCW1 ([facility]) 269 150-450 eCW1 ([facility]) 38.1 24.0-44.0 eCW1 ([facility]) 47.0 36.0-66.0 eCW1 ([facility]) 12.1 11.5-14.5 eCW1 ([facility]) 0.8 0.0-1.0 eCW1 ([facility]) 7.9 0.0-5.0 eCW1 ([facility]) 5.8 0.0-3.0 eCW1 ([facility]) 2.4 1.5-8.5 eCW1 ([facility]) 0.0 0.0-0.2 eCW1 ([facility]) 0.4 0.0-0.8 eCW1 ([facility]) 0.3 0.0-0.5 eCW1 ([facility]) 1.9 1.5-5.0 eCW1 ([facility]) ID Date Data Source [id number] 03/31/2020 07:46:00 AM EDT [facility] Name: GUILLE GAYLE : 2 Age/Sex: 39F Ordering Provider: CARMENCITA Bolaños Med Rec #: [id number] Reg Status:[facility] REF Room #: Date of Service: 03/31/20 Report Number: [id number] cc: CARMENCITA Bolaños Send Report To: Echocardiogram [...] OV> Exam Date/Time: 03/31/20 0746 Order #: [id number] Dictation Date/Time: 03/31/20 0810 Transcribed Date/Time: Electrical Designer Drafter: Name Value Range Interpretation Code Description Data Carol rce(s) Supporting Document(s) ID Date Data Source [id number] 03/31/2020 03:07:00 PM EDT [facility] Name: GUILLE GAYLE : 2 Age/Sex: 39F Ordering Provider: CARMENCITA Bolaños Med Rec #: [id number] Reg Status: REG REF Room #: Date of Service: 03/31/20 Report Number: [id number] cc:CARMENCITA Bolaños Send Report To: [id number] CT/CT High Res Chest No Contrast Reason [...] Linda Vela MD <Electronically signed by Lotus Vela MD> 03/31/20 1719 Dictation Date/Time: 03/31/20 0931 Transcribed Date/Time: 03/31/20 1507 Electrical Designer Drafter: DEEDEE Name Value Range Interpretation Code Description Data Carol rce(s) Supporting Document(s) ID Date Data Source [id number] 02/25/2020 06:32:00 PM EDT [facility] Name Value Range Interpretation Code Description Data Carol rce(s) Supporting Document(s) IGAMS IgG result 678 mg/dL 610-1,616 Normal (applies to non-numeric results) [facility] IGAMS IgA result 164 mg/dL 85-499 Normal (applies to non-numeric results) [facility] IGAMS IgM result 133 mg/dL 35-242 Normal (applies to non-numeric results) [facility] Test performed [place] [address] ID Date Data Source [id number] 02/25/2020 06:32:00 PM EDT [facility] Name Value Range Interpretation Code Description Data Carol rce(s) Supporting Document(s) SS-A/RO Ab,IgG Normal (applies to non-numeric r esults) [facility] REFERENCE VALUE------ <1.0 (Negative) SS-B/LA Ab,IgG Normal (applies to non-numeric r esults) [facility] REFERENCE VALUE------ <1.0 (Negative) Test Performed by: [place] [address] Hot Metal Mixer Operator: Ricardo Flores M.D. Ph.D.; CLIA# [id number] ID Date Data Source [id number] 02/25/2020 06:32:00 PM [facility] Value Range Interpretation Code Description [facility] Supporting Document(s) REDUCTION FURNACE OPERATOR HELPER Ab,IgG result Normal (applies to non-numeri c results) [facility] REFERENCE VALUE------ <1.0 (Negative) Test Performed by: [place] [address] Hot Metal Mixer Operator: Ricardo Flores M.D. Ph.D.; CLIA# [id number] ID Date Data Source [id number] 02/25/2020 06:32:00 PM [facility] Value Range Interpretation Code Description Data [facility] rce(s) Supporting Document(s) SCL 70 Ab,IgG result [facility] Interpretation: Positive (>=1.0) ------ REFERENCE VALUE <1.0 (Negative) Test Performed by: [place] [address] Hot Metal Mixer Operator: Ricardo Flores M.D. Ph.D.; CLIA# [id number] ID Date Data Source [id number] 02/25/2020 06:32:[address] [facility] Value Range Interpretation Code Description Data Carol rce(s) Supporting Document(s) PHILIPP Interpretation Result Negative Normal (applies to no n-numeric results) [facility] Results were obtained with the WOWash NOV A Lite HEp-2 PHILIPP Kit by indirect immunofluorescence. Test performed [place] [address] ID Date Data Source [id number] 02/25/2020 06:32:[address] [facility] Value Range Interpretation Code Description Data Carol rce(s) Supporting Document(s) Lund Ab,IgG result Normal (applies to non-nume nubia results) [facility] REFERENCE VALUE------ <1.0 (Negative) Test Performed by: [place] [address] Hot Metal Mixer Operator: Ricardo Flores M.D. Ph.D.; CLIA# [id number] ID Date Data Source [id number] 02/24/2020 12:16:[address] [facility] Value Range Interpretation Code Description Data Carol rce(s) Supporting Document(s) Cyclic Citrullinated Pep Ab,S <5.00 Normal (applies t o non-numeric results) [facility] anti-CCP IgG antibodies were not detecte d. ID Date Data Source [id number] 02/24/2020 11:34:[address] [facility] Value Range Interpretation Code Description Data Carol rce(s) Supporting Document(s) Rheumatoid Factor 0.0-15.0 Normal (applies to non-numeri c results) [facility] ID Date Data Source [id number] 02/03/2020 10:05:00 AM EDT [facility] ([facility]) Name Value Range Interpretation Code Description Data Carol rce(s) Supporting Document(s) Coronavirus 2019 Nasopharygeal Laboratory test result MED[facility] ([facility]) This test was developed and [...] result in this assay. Performed at: [facility] [address] [id number] Hot Metal Mixer Operator: Mariaelena Nguyen MD, Phone: [phone] Not Detected ID Date Data Source [id number] 02/03/2020 10:05:00 AM EDT [facility] Name Value Range Interpretation Code Description Data Carol rce(s) Supporting Document(s) SARS coronavirus 2 RNA [facility] This lab was ordered by [facility] and reported by [facility]. ID Date Data Source [id number] 01/12/2020 03:04:00 PM EDT [facility] ([facility]) Name Value Range Interpretation Code Description Data Carol rce(s) Supporting Document(s) Laboratory test finding (navigational concept) Laboratory test result [facility] ([facility]) ID Date Data Source [id number] 12/25/2019 10:32:00 AM EDT [facility] ([facility]) Name Value Range Interpretation Code Description Data Carol rce(s) Supporting Document(s) Coronavirus 2019 Nasopharygeal Laboratory test result [facility] ([facility]) Testing was performed using the john(R) SARS-CoV-2 test. This test was developed and its performance characteristics determined by [facility]. This test has not been FDA [...] result in this assay. Performed at: - [facility] [id number] Hot Metal Mixer Operator: Mariaelena Nguyen MD, Phone: [phone] Not Detected ID Date Data Source [id number] 12/25/2019 12:00:00 AM EDT [facility] Name Value Range Interpretation Code Description Data Carol rce(s) Supporting Document(s) SARS coronavirus 2 RNA [facility] This lab was ordered by [facility] and reported by [facility]. ID Date Data Source C REACTIVE PROTEIN QUANTITATIV (At [facility]) 12/20/2019 06:13 :26 AM EDT eCW1 ([facility]) Name Value Range Interpretation Code Description Data Carol rce(s) Supporting Document(s) < 0.30 C REACTIVE PROTEIN QUANTI TATIV eCW1 ([facility]) ID Date Data Source ERYTHROCYTE SEDIMENTATION RATE 12/20/2019 06:12:40 AM EDT eC W1 ([facility]) Name Value Range Interpretation Code Description Data Carol rce(s) Supporting Document(s) 15 ERYTHROCYTE SEDIMENTATION RATE eCW1 ([facility]) Procedure Social History Code Duration Value Status Description Data Source(s ) Smoking 07/13/2020 12:00:00 AM EST Never Smoker completed Never S moker eCW1 ([facility]) Smoking 06/14/2020 12:00:00 AM EST Patient has never smoked co mpleted Patient has never smoked [facility] ([facility]) Smoking 04/11/2020 12:00:00 AM EST Never Smoker completed Never S moker eCW1 ([facility]) Smoking 04/11/2020 12:00:00 AM EST Never Smoker completed Never S moker eCW1 ([facility]) Smoking 12/27/2019 12:00:00 AM EDT Never Smoker completed Never S moker eCW1 ([facility]) Smoking 12/27/2019 12:00:00 AM EDT Never Smoker completed Never S moker eCW1 ([facility]) Smoking 12/27/2019 12:00:00 AM EDT Never Smoker completed Never S moker eCW1 ([facility]) Smoking 12/27/2019 12:00:00 AM EDT Never Smoker completed Never S moker eCW1 ([facility]) Smoking 12/27/2019 12:00:00 AM EDT Never Smoker completed Never S moker eCW1 ([facility]) Smoking 12/24/2019 12:00:00 AM EDT Never Smoker completed Never S moker eCW1 ([facility]) Smoking 06/16/2019 12:00:00 AM EST Unknown if ever smoked comp leted Unknown if ever smoked [facility] Vital Signs ID Date Data Source UNK Name Value Range Interpretation Code Description Data Source(s) Diastolic blood pressure 70 mm[Hg] 70 mm[Hg] eCW1 ([facility]) Systolic blood pressure 120 mm[Hg] 120 mm[Hg] e CW1 ([facility]) Body temperature 98.2 [degF] 98.2 [degF] eCW1 ( [facility]) Respiratory rate 18 /min 18 /min eCW1 ([facility]) Heart rate 110 /min 110 /min eCW1 ([facility]) Body mass index (BMI) [Ratio] 26.95 kg/m2 26.95 kg/m2 eCW1 ([facility]) Body height 64 [in_i] 64 [in_i] eCW1 ([facility]) Body weight 157 [lb_av] 157 [lb_av] eCW1 ([facility]) Body mass index (BMI) [Ratio] 26.6 kg/m2 26.6 k g/m2 MEDENT ([facility]) Body height 64 [in_i] 64 [in_i] MEDENT ([facility]) 5'4" Body weight 155.00 [lb_av] 155.00 [lb_av] MEDEN T ([facility]) Body temperature 97.1 [degF] 97.1 [degF] MEDENT ([facility]) Oxygen saturation in Arterial blood by Pulse oximetry 98 % 98 % MEDENT ([facility]) Respiratory rate 16 /min 16 /min MEDENT ( [facility]) Heart rate 92 /min 92 /min MEDENT ([facility]) Diastolic blood pressure 90 mm[Hg] 90 mm[Hg] MEDENT ([facility]) Systolic blood pressure 142 mm[Hg] 142 mm[Hg] M EDENT ([facility]) Diastolic blood pressure 78 mm[Hg] 78 mm[Hg] eCW1 ([facility]) Systolic blood pressure 112 mm[Hg] 112 mm[Hg] e CW1 ([facility]) Body temperature 97.9 [degF] 97.9 [degF] eCW1 ( [facility]) Respiratory rate 18 /min 18 /min eCW1 ([facility]) Heart rate 112 /min 112 /min eCW1 ([facility]) Body mass index (BMI) [Ratio] 25.57 kg/m2 25.57 kg/m2 eCW1 ([facility]) Body height 64 [in_i] 64 [in_i] eCW1 ([facility]) Body weight 149 [lb_av] 149 [lb_av] eCW1 ([facility]) Body mass index (BMI) [Ratio] 25.6 kg/m2 25.6 k g/m2 MEDENT ([facility]) Body weight 149.00 [lb_av] 149.00 [lb_av] MEDEN T ([facility]) Body height 64 [in_i] 64 [in_i] MEDENT ([facility]) 5'4" Body temperature 97.0 [degF] 97.0 [degF] [facility] ([facility]) Diastolic blood pressure 88 mm[Hg] 88 mm[Hg] eCW1 ([facility]) Systolic blood pressure 130 mm[Hg] 130 mm[Hg] e CW1 ([facility]) Body temperature 98.3 [degF] 98.3 [degF] eCW1 ( [facility]) Respiratory rate 18 /min 18 /min eCW1 ([facility]) Heart rate 113 /min 113 /min eCW1 ([facility]) Body mass index (BMI) [Ratio] 25.50 kg/m2 25.50 kg/m2 eCW1 ([facility]) Body height 64 [in_i] 64 [in_i] eCW1 ([facility]) Body weight 148.6 [lb_av] 148.6 [lb_av] eCW1 ([facility]) Diastolic blood pressure 80 mm[Hg] 80 mm[Hg] eCW1 ([facility]) Systolic blood pressure 126 mm[Hg] 126 mm[Hg] e CW1 ([facility]) Body temperature 97.8 [degF] 97.8 [degF] eCW1 ( [facility]) Respiratory rate 17 /min 17 /min eCW1 ([facility]) Heart rate 110 /min 110 /min eCW1 ([facility]) Body mass index (BMI) [Ratio] 25.68 kg/m2 25.68 kg/m2 eCW1 ([facility]) Body height 64 [in_i] 64 [in_i] W1 ([facility]) Body weight 149.6 [lb_av] 149.6 [lb_av] eCW1 ([facility]) Body mass index (BMI) [Ratio] 25.4 kg/m2 25.4 k g/m2 MEDENT ([facility]) Body height 64 [in_i] 64 [in_i] MEDENT ([facility], [facility]) 5'4" Body weight 148.00 [lb_av] 148.00 [lb_av] MEDEN T ([facility], [facility]) Body temperature 98.5 [degF] 98.5 [degF] MEDENT ([facility], [facility]) Oxygen saturation in Arterial blood by Pulse oximetry 98 % 98 % MEDENT ([facility], [facility]) Heart rate 110 /min 110 /min MEDENT ([facility], [facility]) Diastolic blood pressure 96 mm[Hg] 96 mm[Hg] MEDENT ([facility], [facility]) Systolic blood pressure 141 mm[Hg] 141 mm[Hg] [facility] Body mass index (BMI) [Ratio] 25.4 kg/m2 25.4 k g/m2 MEDENT ([facility], [facility]) Body height 64 [in_i] 64 [in_i] [facility] 5'4" Body weight 148.00 [lb_av] 148.00 [lb_av] MEDEN T ([facility], [facility]) Body temperature 98.6 [degF] 98.6 [degF] MEDENT ([facility], [facility]) Oxygen saturation in Arterial blood by Pulse oximetry 98 % 98 % MEDENT ([facility], [facility]) Heart rate 106 /min 106 /min MEDENT ([facility], [facility]) Diastolic blood pressure 90 mm[Hg] 90 mm[Hg] MEDENT ([facility], [facility]) Systolic blood pressure 141 mm[Hg] 141 mm[Hg] M EDENT ([facility], [facility]) Body height 64 [in_i] 64 [in_i] MEDENT ([facility], [facility]) 5'4" Body temperature 98.6 [degF] 98.6 [degF] MEDENT ([facility], [facility]) Oxygen saturation in Arterial blood by Pulse oximetry 98 % 98 % MEDENT ([facility], [facility]) Respiratory rate 17 /min 17 /min MEDENT ( [facility], [facility]) Heart rate 98 /min 98 /min MEDENT ([facility], [facility]) Diastolic blood pressure 90 mm[Hg] 90 mm[Hg] MEDENT ([facility], [facility]) Systolic blood pressure 124 mm[Hg] 124 mm[Hg] M EDENT ([facility], [facility]) Diastolic blood pressure 88 mm[Hg] 88 mm[Hg] eCW1 ([facility]) Systolic blood pressure 132 mm[Hg] 132 mm[Hg] e CW1 ([facility]) Body temperature 98.5 [degF] 98.5 [degF] eCW1 ( [facility]) Respiratory rate 17 /min 17 /min eCW1 ([facility]) Heart rate 118 /min 118 /min eCW1 ([facility]) Body mass index (BMI) [Ratio] 24.92 kg/m2 24.92 kg/m2 [facility] ([facility]) Body height 64 [in_us] 64 [in_us] eCW1 ([facility]) Body weight Measured 145.2 [lb_av] 145.2 [lb_av ] W1 ([facility]) Body mass index (BMI) [Ratio] 25.4 kg/m2 25.4 k g/m2 MEDENT ([facility], [facility]) Body height 64 [in_i] 64 [in_i] MEDENT ([facility], [facility]) 5'4" Body weight 148.00 [lb_av] 148.00 [lb_av] MEDEN T ([facility], [facility]) Body temperature 98.0 [degF] 98.0 [degF] MEDENT ([facility], [facility]) Oxygen saturation in Arterial blood by Pulse oximetry 98 % 98 % MEDENT ([facility], [facility]) Respiratory rate 16 /min 16 /min MEDENT ( [facility], [facility]) Heart rate 130 /min 130 /min MEDENT ([facility], [facility]) Diastolic blood pressure 80 mm[Hg] 80 mm[Hg] MEDENT ([facility], [facility]) Systolic blood pressure 127 mm[Hg] 127 mm[Hg] M EDENT ([facility], [facility]) Respiratory rate 18 /min 18 /min MEDENT ( [facility]) Body mass index (BMI) [Ratio] 25.4 kg/m2 25.4 k g/m2 MEDENT ([facility]) Body weight 148.00 [lb_av] 148.00 [lb_av] MEDEN T ([facility]) Body height 64 [in_i] 64 [in_i] MEDENT ([facility]) 5'4" Respiratory rate 16 /min 16 /min MEDENT ( [facility]) Body mass index (BMI) [Ratio] 25.4 kg/m2 25.4 k g/m2 MEDENT ([facility]) Body weight 148.00 [lb_av] 148.00 [lb_av] MEDEN T ([facility]) Body height 64 [in_i] 64 [in_i] MEDENT ([facility]) 5'4" Body weight 146 [lb_av] 146 [lb_av] KAYCEE [facility] Systolic blood pressure 134 mm[Hg] 134 mm[Hg] A THENA ([facility] ) Body mass index (BMI) [Ratio] 25.7 kg/m2 25.7 k g/m2 KAYCEE ([facility] ) Body height 63.25 [in_i] 63.25 [in_i] KAYCEE ([facility]) Diastolic blood pressure 82 mm[Hg] 82 mm[Hg] KAYCEE ([facility] ) Diastolic blood pressure 0 mm[Hg] Normal (applies to non-numeric results) 0 mm[Hg] Accumedic ([facility]) Systolic blood pressure 0 mm[Hg] Normal (applies t o non-numeric results) 0 mm[Hg] [facility] ([facility]) Body mass index (BMI) [Ratio] 0.00 kg/m2 No rmal (applies to non-numeric results) 0.00 kg/m2 Accumedic ([facility]) Body weight Measured 0.00 lbs Normal (applies to n on-numeric results) 0.00 lbs [facility]umed[facility] ([facility]) Body height 0.00 in Normal (applies to non-numeric resu lts) 0.00 in [facility] ([facility]) Diastolic blood pressure 100 mm[Hg] 100 mm[Hg] eCW1 ([facility]) Systolic blood pressure 148 mm[Hg] 148 mm[Hg] e CW1 ([facility]) Body temperature 98.5 [degF] 98.5 [degF] eCW1 ( [facility]) Respiratory rate 18 /min 18 /min eCW1 ([facility]) Heart rate 92 /min 92 /min eCW1 ([facility]) Body mass index (BMI) [Ratio] 25.40 kg/m2 25.40 kg/m2 eCW1 ([facility]) Body height 64 [in_us] 64 [in_us] eCW1 ([facility]) Body weight Measured 148 [lb_av] 148 [lb_av] eC W1 ([facility]) Patient Treatment Plan of Care Planned Activity Planned Date Details Description Data Source (s) Hydroxychloroquine Sulfate 200 MG Oral Tablet [[place]] 07/13/2020 12:00:00 AM EST eCW1 ([facility]) Prednisone 10 MG Oral Tablet 12/27/2019 12:00:00 AM EDT eCW1 ([facility]) Prednisone 10 MG Oral Tablet 12/27/2019 12:00:00 AM EDT eCW1 ([facility]) Prednisone 10 MG Oral Tablet 12/27/2019 12:00:00 AM EDT eCW1 ([facility]) Prednisone 10 MG Oral Tablet 12/27/2019 12:00:00 AM EDT eCW1 ([facility]) Prednisone 10 MG Oral Tablet 12/27/2019 12:00:00 AM EDT eCW1 ([facility]) meloxicam 7.5 MG Oral Tablet 08/12/2019 12:00:00 AM EST eCW1 ([facility]) duloxetine 20 MG Delayed Release Oral Capsule [Cymbalt a] 08/12/2019 12:00:00 AM EST eCW1 ([facility]) Oseltamivir 75 MG Oral Capsule [Tamiflu] 07/08/2019 12:00:00 AM EST eCW1 ([facility]) Oseltamivir 75 MG Oral Capsule [Tamiflu] 07/08/2019 12:00:00 AM EST eCW1 ([facility]) Amoxicillin 875 MG / Clavulanate 125 MG Oral Tablet 05/31/20 19 12:00:00 AM EST eCW1 ([facility]) Align 4 MG 05/31/2019 12:00:00 AM EST e CW1 ([facility])
--- NOTE | 2020-07-24 17:37 | REP ---
INDICATION: DYSPNEA/COUGH. COMPARISON: 01/22/2020. TECHNIQUE: Portable AP seated chest FINDINGS: The lung dill are well inflated. There is no pleural effusion, lateral pleural thickening or apical scarring. No infiltrate, atelectasis or mass no pulmonary nodules. The heart, mediastinal and hilar contours are normal. The aorta and airway intact. The bony thorax is unremarkable. IMPRESSION: No acute cardiopulmonary change <Electronically signed by Boom Rodriguez > 07/24/20 [id number]
[2020-07-24 17:49] LABS: BASO % 0.4 % (0.0-1.0); EOS # 0.1 10^3/uL (0.0-0.5); EOS % 1.7 % (0.0-3.0); HEMATOCRIT 37.3 % (36.0-47.0); HEMOGLOBIN 12.4 g/dl (12.0-15.5); LYMPH # 2.4 10^3/uL (1.5-5.0); LYMPH % 34.5 % (24.0-44.0); MEAN CORPUSCULAR HEMOGLOBIN 29.3 pg (27.0-33.0); MEAN CORPUSCULAR HGB CONC 33.2 g/dl (32.0-36.5); MEAN CORPUSCULAR VOLUME 88.2 fl (80.0-96.0); MONO # 0.4 10^3/uL (0.0-0.8); MONO % 6.4 % (0.0-8.0); NEUTROPHILS # 3.9 10^3/uL (1.5-8.5); NEUTROPHILS % 56.7 % (36.0-66.0); PLATELET COUNT, AUTOMATED 244 10^3/uL (150-450); RED BLOOD COUNT 4.23 10^6/uL (4.00-5.40); WHITE BLOOD COUNT 6.9 10^3/uL (4.0-10.0)
[2020-07-24 18:19] LABS: ALBUMIN 4.1 GM/DL (3.2-5.2); ALT/SGPT 15 U/L (12-78); BILIRUBIN,DIRECT 0.3 MG/DL (0.0-0.2); BLOOD UREA NITROGEN 27 MG/DL (7-18); CALCIUM LEVEL 8.9 MG/DL (8.5-10.1); CARBON DIOXIDE LEVEL 27 MEQ/L (21-32); CHLORIDE LEVEL 108 MEQ/L (98-107); CK-MB VALUE MASS < 1.0 NG/ML (<3.6); CPK CREATINE PHOSPHOKINASE 60 U/L (26-192); CREATININE FOR GFR 0.85 MG/DL (0.55-1.30); GLOMERULAR FILTRATION RATE > 60.0 (>60); GLUCOSE, FASTING 87 MG/DL (70-100); LIPASE 101 U/L (73-393); MB/CK RELATIVE INDEX 1.67 (< OR =4); POTASSIUM SERUM 3.8 MEQ/L (3.5-5.1); SODIUM LEVEL 143 MEQ/L (136-145); TOTAL PROTEIN 7.1 GM/DL (6.4-8.2); TROPONIN I < 0.02 NG/ML (< 0.10)
[2020-07-24] MEDS ORDERED: LIDO5DIS41 TOP (18:30)
[2020-07-24 19:48] VITALS: BP 123/85
[2020-07-25] MEDS ORDERED: **NOTE PATIENT COMMENT** MISC XX ONE (05:00)
--- NOTE | 2020-07-25 07:44 | ECGEPIP ---
[facility] - ED Test Date: 2020-07-24 Pat Name: GUILLE GAYLE Department: Room: - Gender: Female Bread Baker: : 1980 Requested By: GREGORY PARR Order Number: [id number] Reading MD: Kris Pteerson Measurements Intervals [place] Rate: 94 P: 36 PA: 134 QRS: 16 QRSD: 86 T: 26 QT: 352 QTc: 440 Interpretive Statements Normal sinus rhythm BASELINE ARTIFACT AFFECTS INTERPRETATION Electronically Signed on 07-25-2020 7:43:39 EST by Kris Peterson
== END 2020-07-24 19:49 | disposition home or self-care (01) ==
LOC: M ED 15:04
DX: M94.0 Chondrocostal junction syndrome [Tietze] (principal); F33.9 Major depressive disorder, recurrent, unspecified; F41.1 Generalized anxiety disorder; F43.10 Post-traumatic stress disorder, unspecified; K21.9 Gastro-esophageal reflux disease without esophagitis; Z79.899 Other long term (current) drug therapy; Z88.5 Allergy status to narcotic agent; Z88.8 Allergy status to other drugs, medicaments and biological substances; Z91.041 Radiographic dye allergy status; Z91.048 Other nonmedicinal substance allergy status; J30.89 Other allergic rhinitis

== ENCOUNTER → 2020-08-08 | Outpatient (REF) | payer OTHER ==
[~2020-08-08] MED LIST changes: +CIPR-249 PO; +LIDO5DIS41 TOP; +PYRI1TAB5 PO
== END ==
LOC: M SFHCLERA 10:46
PROVIDERS: ATTEND Nurse Practitioner Family
DX: R30.0 Dysuria (principal)

== ENCOUNTER 2020-08-10 15:49 | Emergency (ER) | payer OTHER ==
[~2020-08-10] VITALS: Ht 162.6 cm; Wt 70.6 kg
[~2020-08-10 15:49] MED LIST changes: -CIPR-249 PO; -PYRI1TAB5 PO
[2020-08-10 16:51] LABS: INR 0.98; PROTHROMBIN TIME 13.2 SECONDS (12.5-14.3)
[2020-08-10 16:52] LABS: PARTIAL THROMBOPLASTIN TIME 31.7 SECONDS (24.2-38.5)
[2020-08-10] MEDS ORDERED: NS 1,000 ML IV ONE (17:00)
[2020-08-10] MEDS ORDERED: KETOROLAC 30 MG/ML 1ML VIAL IV ONE (17:00)
[2020-08-10 17:07] LABS: ALT/SGPT 15 U/L (12-78); AMYLASE 54 U/L (25-115); BILIRUBIN,DIRECT 0.1 MG/DL (0.0-0.2); BILIRUBIN,TOTAL 0.5 MG/DL (0.2-1.0); HCG, SERUM QUANTITATIVE < 1.0 MIU/ML; LIPASE 99 U/L (73-393); TOTAL PROTEIN 6.6 GM/DL (6.4-8.2)
--- NOTE | 2020-08-10 17:47 | REPVR ---
PROCEDURE INFORMATION: Exam: CT Abdomen And Pelvis Without Contrast Exam date and time: 08/10/2020 5:30 PM Age: 40 years old Clinical indication: Abdominal pain; Flank; Right; Additional info: R flank pain, hematuria TECHNIQUE: Imaging protocol: Computed tomography of the abdomen and pelvis without contrast. Axial, coronal and sagittal reformatted images were created and reviewed. Radiation optimization: All CT scans at this facility use at least one of these dose optimization techniques: automated exposure control; mA and/or kV adjustment per patient size (includes targeted exams where dose is matched to clinical indication); or iterative reconstruction. COMPARISON: CT ABD/PEL W/PO CONTRAST ONLY 08/23/2018 12:14 PM FINDINGS: Liver: Unremarkable. Gallbladder and bile ducts: Status post cholecystectomy. No biliary ductal dilatation. Pancreas: Unremarkable. Spleen: Unremarkable. Adrenal glands: Normal. No mass. Kidneys and ureters: No mass. No radiodense calculi. No hydronephrosis. Stomach and bowel: Status post gastric sleeve. No obstruction. No bowel wall thickening. No pneumatosis. Moderate amount of retained stool in the colon. Scattered colonic diverticula without evidence of diverticulitis. No obstruction. No bowel wall thickening. No pneumatosis. Appendix: Normal. Intraperitoneal space: No free fluid. No organized fluid collection. No free air. Vasculature: Unremarkable. No aneurysm. Lymph nodes: No pathologically enlarged lymph nodes. Urinary bladder: Mild circumferential urinary bladder wall thickening, likely secondary to underdistention. Reproductive: Unremarkable. Bones/joints: No acute osseous abnormality. Soft tissues: Unremarkable. IMPRESSION: 1. Limited noncontrast examination without CT evidence of urolithiasis. 2. Mild circumferential urinary bladder wall thickening, likely secondary to underdistention. Correlate with urinalysis to exclude cystitis. 3. Additional findings, as above. Electronically signed by: Xavier Negron On 08/10/2020 17:47:33 PM
[2020-08-10 18:17] LABS: BASO % 0.6 % (0.0-1.0); EOS # 0.2 10^3/uL (0.0-0.5); EOS % 3.7 % (0.0-3.0); HEMOGLOBIN 11.1 g/dl (12.0-15.5); LYMPH # 2.2 10^3/uL (1.5-5.0); LYMPH % 34.9 % (24.0-44.0); MEAN CORPUSCULAR HGB CONC 32.6 g/dl (32.0-36.5); MEAN CORPUSCULAR VOLUME 88.8 fl (80.0-96.0); MONO # 0.4 10^3/uL (0.0-0.8); MONO % 6.8 % (2.0-8.0); NEUTROPHILS # 3.4 10^3/uL (1.5-8.5); NEUTROPHILS % 53.8 % (36.0-66.0); PLATELET COUNT, AUTOMATED 261 10^3/uL (150-450); RED BLOOD COUNT 3.83 10^6/uL (4.00-5.40); WHITE BLOOD COUNT 6.3 10^3/uL (4.0-10.0)
[2020-08-10] MEDS ORDERED: PYRI1TAB5 PO (18:29)
[2020-08-10] MEDS ORDERED: CIPR-249 PO (18:29)
[2020-08-10] MEDS ORDERED: CIPROFLOXACIN 500MG TABLET PO ONE (18:30)
[2020-08-10 18:58] VITALS: BP 150/97
== END 2020-08-10 19:02 | disposition home or self-care (01) ==
LOC: M ED 15:49
DX: N39.0 Urinary tract infection, site not specified (principal); Z91.041 Radiographic dye allergy status; Z91.048 Other nonmedicinal substance allergy status
CPT/HCPCS: 74176; 80047; 80076; 81001; 82150; 83690; 84702; 85025; 85610; 85730; 87086; 96361; 96374; 99284; J1885

== ENCOUNTER 2020-11-02 15:30 | Outpatient (RCR) | payer OTHER ==
[~2020-11-02 15:30] MED LIST changes: +CIPR-249 PO; +PYRI1TAB5 PO
== END 2020-11-06 ==
LOC: M PT 15:30
PROVIDERS: ATTEND Internal Medicine
DX: M76.31 Iliotibial band syndrome, right leg (principal); M76.32 Iliotibial band syndrome, left leg; M25.511 Pain in right shoulder; M25.512 Pain in left shoulder

== ENCOUNTER → 2020-11-09 | Outpatient (REF) | payer OTHER ==
[2020-11-09 11:05] LABS: BASO % 0.8 % (0.0-1.0); EOS # 0.3 10^3/uL (0.0-0.5); EOS % 5.3 % (0.0-3.0); HEMATOCRIT 33.7 % (36.0-47.0); HEMOGLOBIN 10.6 g/dl (12.0-15.5); LYMPH % 40.1 % (24.0-44.0); MEAN CORPUSCULAR HEMOGLOBIN 28.6 pg (27.0-33.0); MEAN CORPUSCULAR HGB CONC 31.5 g/dl (32.0-36.5); MEAN CORPUSCULAR VOLUME 90.8 fl (80.0-96.0); MONO # 0.4 10^3/uL (0.0-0.8); MONO % 7.2 % (2.0-8.0); NEUTROPHILS # 2.3 10^3/uL (1.5-8.5); NEUTROPHILS % 46.4 % (36.0-66.0); PLATELET COUNT, AUTOMATED 255 10^3/uL (150-450); RED BLOOD COUNT 3.71 10^6/uL (4.00-5.40); WHITE BLOOD COUNT 4.9 10^3/uL (4.0-10.0)
[2020-11-09 11:45] LABS: ALBUMIN 3.9 GM/DL (3.2-5.2); ALT/SGPT 31 U/L (12-78); BILIRUBIN,TOTAL 0.8 MG/DL (0.2-1.0); BLOOD UREA NITROGEN 20 MG/DL (7-18); CALCIUM LEVEL 8.9 MG/DL (8.5-10.1); CARBON DIOXIDE LEVEL 31 MEQ/L (21-32); CHLORIDE LEVEL 108 MEQ/L (98-107); CREATININE FOR GFR 0.72 MG/DL (0.55-1.30); FERRITIN 6 NG/ML (8-252); GLOMERULAR FILTRATION RATE > 60.0 (>60); GLUCOSE, FASTING 95 MG/DL (70-100); IRON (FE) 45 UG/DL (50-170); MAGNESIUM LEVEL 2.3 MG/DL (1.8-2.4); POTASSIUM SERUM 3.9 MEQ/L (3.5-5.1); PTH INTACT 85.9 PG/ML (18.5-88.0); SODIUM LEVEL 142 MEQ/L (136-145); TOTAL PROTEIN 6.6 GM/DL (6.4-8.2); VITAMIN B12 LEVEL 421 PG/ML (247-911)
== END ==
LOC: M SFHCPLAZ 08:32
PROVIDERS: ATTEND Physician Assistant Medical
DX: D50.9 Iron deficiency anemia, unspecified (principal); Z13.220 Encounter for screening for lipoid disorders; Z98.84 Bariatric surgery status; E55.9 Vitamin D deficiency, unspecified

== ENCOUNTER → 2020-11-09 | Outpatient (REF) | payer OTHER ==
[2020-11-09 11:05] LABS: BASO # 0.1 10^3/uL (0.0-0.2); EOS # 0.3 10^3/uL (0.0-0.5); EOS % 5.8 % (0.0-3.0); HEMOGLOBIN 10.9 g/dl (12.0-15.5); LYMPH # 1.9 10^3/uL (1.5-5.0); LYMPH % 39.5 % (24.0-44.0); MEAN CORPUSCULAR HEMOGLOBIN 29.3 pg (27.0-33.0); MEAN CORPUSCULAR HGB CONC 32.1 g/dl (32.0-36.5); MEAN CORPUSCULAR VOLUME 91.4 fl (80.0-96.0); MONO # 0.4 10^3/uL (0.0-0.8); MONO % 7.2 % (2.0-8.0); NEUTROPHILS # 2.2 10^3/uL (1.5-8.5); NEUTROPHILS % 46.3 % (36.0-66.0); PLATELET COUNT, AUTOMATED 249 10^3/uL (150-450); RED BLOOD COUNT 3.72 10^6/uL (4.00-5.40); WHITE BLOOD COUNT 4.8 10^3/uL (4.0-10.0)
== END ==
LOC: M PLALAB 10:51
PROVIDERS: ATTEND Internal Medicine
DX: R76.8 Other specified abnormal immunological findings in serum (principal)

== ENCOUNTER 2020-11-17 08:06 | Outpatient (CLI) | payer OTHER ==
[~2020-11-17] VITALS: Ht 162.6 cm; Wt 70.5 kg
[~2020-11-17 08:06] MED LIST changes: +ACETAMINOPHEN TAB 650MG DOSE (2X325MG) PO ONE; +ALBUTEROL SULFATE 2.5 MG/0.5 ML INH NEB SOLN INH PRN; +EPINEPHrine INJ 1 MG/ML 1ML AMP IM PRN; +FERRIC CARBOXYMALTOSE INJ 750 MG, VIAL MATE ADAPTER 1 EACH in NS 250 ML IV ONE; +NS 1,000 ML IV SCH; +diphenhydrAMINE 50MG/ML VIAL (J1200) IV PRN; +methylPREDNISolone 125MG 2ML VIAL IV PRN
[2020-11-17 08:10] VITALS: BP 166/106
[2020-11-17] MEDS: diphenhydrAMINE 25MG CAP PO ONE ×3 (08:18→08:25)
[2020-11-17] MEDS ORDERED: METH2.5T48 PO (08:36)
[2020-11-17] MEDS ORDERED: CONC36TA4 PO (08:37)
[2020-11-17] MEDS ORDERED: RITA10TA PO (08:39)
[2020-11-17 09:00] VITALS: BP 127/77
[2020-11-17 10:00] VITALS: BP 116/74
[2020-11-17 10:54] VITALS: BP 118/80
[2020-11-17 11:49] VITALS: BP 124/79
[2020-11-17 12:45] VITALS: BP 143/71
== END 2020-11-17 12:45 | disposition home or self-care (01) ==
LOC: M INFU 08:06
PROVIDERS: ATTEND Physician Assistant Medical
DX: D50.9 Iron deficiency anemia, unspecified (principal); Z88.6 Allergy status to analgesic agent; Z88.8 Allergy status to other drugs, medicaments and biological substances; Z91.041 Radiographic dye allergy status; Z91.048 Other nonmedicinal substance allergy status
CPT/HCPCS: 96365; 96366; J1439

== ENCOUNTER 2020-11-23 16:00 | Outpatient (RCR) | payer OTHER ==
[~2020-11-23 16:00] MED LIST changes: -ACETAMINOPHEN TAB 650MG DOSE (2X325MG) PO ONE; -ALBUTEROL SULFATE 2.5 MG/0.5 ML INH NEB SOLN INH PRN; +CONC36TA4 PO; -EPINEPHrine INJ 1 MG/ML 1ML AMP IM PRN; -FERRIC CARBOXYMALTOSE INJ 750 MG, VIAL MATE ADAPTER 1 EACH in NS 250 ML IV ONE; +METH2.5T48 PO; -NS 1,000 ML IV SCH; +OMEP40CA4 PO; -OMEP40CA97 PO; +RITA10TA PO; -diphenhydrAMINE 50MG/ML VIAL (J1200) IV PRN; -methylPREDNISolone 125MG 2ML VIAL IV PRN
== END 2020-12-06 ==
LOC: M PT 16:00
PROVIDERS: ATTEND Internal Medicine
DX: M25.511 Pain in right shoulder (principal); M25.512 Pain in left shoulder

== ENCOUNTER 2020-11-24 08:08 | Outpatient (CLI) | payer OTHER ==
[~2020-11-24] VITALS: Ht 162.6 cm; Wt 70.8 kg
[~2020-11-24 08:08] MED LIST changes: +ACETAMINOPHEN TAB 650MG DOSE (2X325MG) PO ONE; +ALBUTEROL SULFATE 2.5 MG/0.5 ML INH NEB SOLN INH PRN; +EPINEPHrine INJ 1 MG/ML 1ML AMP IM PRN; +FERRIC CARBOXYMALTOSE INJ 750 MG, VIAL MATE ADAPTER 1 EACH in NS 250 ML IV ONE; +NS 1,000 ML IV SCH; +diphenhydrAMINE 25MG CAP PO ONE; +diphenhydrAMINE 50MG/ML VIAL (J1200) IV PRN; +methylPREDNISolone 125MG 2ML VIAL IV PRN
[2020-11-24 08:48] VITALS: BP 131/89
[2020-11-24 11:45] VITALS: BP 135/89
== END 2020-11-24 11:45 | disposition home or self-care (01) ==
LOC: M INFU 08:08
PROVIDERS: ATTEND Physician Assistant Medical
DX: D50.9 Iron deficiency anemia, unspecified (principal); Z88.6 Allergy status to analgesic agent; Z88.8 Allergy status to other drugs, medicaments and biological substances; Z91.041 Radiographic dye allergy status; Z91.048 Other nonmedicinal substance allergy status
CPT/HCPCS: 96365; 96366; J1439

== ENCOUNTER → 2021-01-01 | Outpatient (CLI) | payer OTHER ==
[~2021-01-01] MED LIST changes: -ACETAMINOPHEN TAB 650MG DOSE (2X325MG) PO ONE; -ALBUTEROL SULFATE 2.5 MG/0.5 ML INH NEB SOLN INH PRN; -EPINEPHrine INJ 1 MG/ML 1ML AMP IM PRN; -FERRIC CARBOXYMALTOSE INJ 750 MG, VIAL MATE ADAPTER 1 EACH in NS 250 ML IV ONE; -NS 1,000 ML IV SCH; -diphenhydrAMINE 25MG CAP PO ONE; -diphenhydrAMINE 50MG/ML VIAL (J1200) IV PRN; -methylPREDNISolone 125MG 2ML VIAL IV PRN
[2021-01-01 16:08] LABS: BASO % 0.1 % (0.0-1.0); HEMATOCRIT 37.5 % (36.0-47.0); HEMOGLOBIN 12.8 g/dl (12.0-15.5); LYMPH # 0.9 10^3/uL (1.5-5.0); MEAN CORPUSCULAR HEMOGLOBIN 31.7 pg (27.0-33.0); MEAN CORPUSCULAR HGB CONC 34.1 g/dl (32.0-36.5); MEAN CORPUSCULAR VOLUME 92.8 fl (80.0-96.0); MONO # 0.1 10^3/uL (0.0-0.8); MONO % 1.2 % (2.0-8.0); NEUTROPHILS # 7.6 10^3/uL (1.5-8.5); NEUTROPHILS % 88.3 % (36.0-66.0); PLATELET COUNT, AUTOMATED 257 10^3/uL (150-450); RED BLOOD COUNT 4.04 10^6/uL (4.00-5.40); WHITE BLOOD COUNT 8.6 10^3/uL (4.0-10.0)
[2021-01-01 16:32] LABS: ALBUMIN 4.3 GM/DL (3.2-5.2); ALT/SGPT 59 U/L (12-78); BILIRUBIN,TOTAL 1.1 MG/DL (0.2-1.0); BLOOD UREA NITROGEN 14 MG/DL (7-18); CALCIUM LEVEL 8.7 MG/DL (8.5-10.1); CARBON DIOXIDE LEVEL 26 MEQ/L (21-32); CHLORIDE LEVEL 109 MEQ/L (98-107); GLOMERULAR FILTRATION RATE > 60.0 (>60); GLUCOSE, FASTING 121 MG/DL (70-100); POTASSIUM SERUM 3.8 MEQ/L (3.5-5.1); SODIUM LEVEL 141 MEQ/L (136-145); TOTAL PROTEIN 6.9 GM/DL (6.4-8.2)
== END ==
LOC: M WUC 14:13
PROVIDERS: ATTEND Internal Medicine
DX: R76.8 Other specified abnormal immunological findings in serum (principal)

== ENCOUNTER 2021-01-10 10:32 | Emergency (ER) | payer OTHER ==
[~2021-01-10] VITALS: Ht 162.6 cm; Wt 70.9 kg
[2021-01-10] MEDS ORDERED: OMEP40CA4 PO (10:48)
[2021-01-10] MEDS ORDERED: FOLI1TAB11 (10:48)
[2021-01-10] MEDS ORDERED: METH30CA13 (10:48)
[2021-01-10] MEDS ORDERED: NS 1,000 ML IV ONE (11:30)
[2021-01-10 12:11] LABS: BASO # 0.1 10^3/uL (0.0-0.2); BASO % 0.8 % (0.0-1.0); EOS # 0.2 10^3/uL (0.0-0.5); EOS % 3.8 % (0.0-3.0); HEMATOCRIT 39.4 % (36.0-47.0); HEMOGLOBIN 12.8 g/dl (12.0-15.5); LYMPH % 31.3 % (24.0-44.0); MEAN CORPUSCULAR HEMOGLOBIN 30.5 pg (27.0-33.0); MEAN CORPUSCULAR HGB CONC 32.5 g/dl (32.0-36.5); MEAN CORPUSCULAR VOLUME 93.8 fl (80.0-96.0); MONO # 0.5 10^3/uL (0.0-0.8); MONO % 8.4 % (2.0-8.0); NEUTROPHILS # 3.5 10^3/uL (1.5-8.5); NEUTROPHILS % 55.4 % (36.0-66.0); PLATELET COUNT, AUTOMATED 263 10^3/uL (150-450); WHITE BLOOD COUNT 6.3 10^3/uL (4.0-10.0)
[2021-01-10 12:15] LABS: APPEARANCE, URINE CLEAR (CLEAR); BACTERIA, URINE AUTO NEGATIVE (NEGATIVE); BILIRUBIN, URINE AUTO NEGATIVE (NEGATIVE); BLOOD, URINE BLOOD 3+ (NEGATIVE); COLOR, URINE YELLOW (YELLOW); GLUCOSE, URINE (UA) AUTO NEGATIVE (NEGATIVE); KETONE, URINE AUTO NEGATIVE (NEGATIVE); LEUKOCYTE ESTERASE, URINE AUTO NEGATIVE (NEGATIVE); MUCUS, URINE SMALL (NEGATIVE); NITRITE, URINE AUTO NEGATIVE (NEGATIVE); PROTEIN, URINE AUTO NEGATIVE (NEGATIVE); RBC, URINE AUTO TNTC /HPF (0-3); SPECIFIC GRAVITY URINE AUTO 1.009 (1.002-1.035); SQUAMOUS EPITHELIAL CELL UR AU 0 /HPF (0-6); UROBILINOGEN, URINE AUTO 0.2 mg/dL (0.0-2.0); WBC, URINE AUTO 0 /HPF (0-3)
[2021-01-10 12:51] LABS: ALBUMIN 3.9 GM/DL (3.2-5.2); ALT/SGPT 34 U/L (12-78); BILIRUBIN,TOTAL 0.7 MG/DL (0.2-1.0); BLOOD UREA NITROGEN 13 MG/DL (7-18); CALCIUM LEVEL 8.8 MG/DL (8.5-10.1); CARBON DIOXIDE LEVEL 30 MEQ/L (21-32); CHLORIDE LEVEL 109 MEQ/L (98-107); CREATININE FOR GFR 0.67 MG/DL (0.55-1.30); GLOMERULAR FILTRATION RATE > 60.0 (>60); GLUCOSE, FASTING 91 MG/DL (70-100); HCG, SERUM QUANTITATIVE < 1.0 MIU/ML; POTASSIUM SERUM 3.9 MEQ/L (3.5-5.1); SODIUM LEVEL 143 MEQ/L (136-145); TOTAL PROTEIN 6.6 GM/DL (6.4-8.2)
--- NOTE | 2021-01-10 13:59 | REP ---
INDICATION: heavy vag bleed, passing clots, RLQ pain. COMPARISON: 01/06/2018. TECHNIQUE: Transabdominal and transvaginal scanning performed. FINDINGS: Uterine dimensions are 9.0 x 5.1 x 5.5 cm. Endometrial echo is 7 mm in AP dimension and centrally placed. The uterus is diffusely heterogeneous in echotexture. The bladder measures 5.2 x 4.1 x 7.8cm. The right ovary has dimensions of 2.5 x 2.1 x 1.6 cm. It's Doppler flow is normal with a resistive index of 0.77. The left ovary dimensions are 2.2 x 1.0 x 1.9 cm. It's Doppler flow was normal with resistive index of 0.36. There is no adnexal mass identified. No free fluid is seen in the cul-de-sac. IMPRESSION: Negative pelvic ultrasound. <Electronically signed by Eligio Sainz > 01/10/21 [id number]
[2021-01-10 14:58] VITALS: BP 139/94
== END 2021-01-10 15:01 | disposition home or self-care (01) ==
LOC: M ED 10:32
DX: N92.0 Excessive and frequent menstruation with regular cycle (principal); R10.31 Right lower quadrant pain; I10 Essential (primary) hypertension; E11.9 Type 2 diabetes mellitus without complications; R01.1 Cardiac murmur, unspecified; F41.1 Generalized anxiety disorder; F32.9 Major depressive disorder, single episode, unspecified; J45.909 Unspecified asthma, uncomplicated; K21.9 Gastro-esophageal reflux disease without esophagitis; D64.9 Anemia, unspecified; R51.9 Headache, unspecified; F43.10 Post-traumatic stress disorder, unspecified; Z98.84 Bariatric surgery status; Z91.041 Radiographic dye allergy status; Z91.048 Other nonmedicinal substance allergy status; Z88.8 Allergy status to other drugs, medicaments and biological substances; Z88.5 Allergy status to narcotic agent; Z79.899 Other long term (current) drug therapy

== ENCOUNTER → 2021-05-02 | Outpatient (CLI) | payer OTHER ==
[~2021-05-02] MED LIST changes: +FOLI1TAB11; +METH30CA3
[2021-05-02 19:58] LABS: BASO % 0.3 % (0.0-1.0); HEMOGLOBIN 12.7 g/dl (12.0-15.5); LYMPH # 0.9 10^3/uL (1.5-5.0); MEAN CORPUSCULAR HEMOGLOBIN 31.8 pg (27.0-33.0); MEAN CORPUSCULAR HGB CONC 33.4 g/dl (32.0-36.5); MONO # 0.2 10^3/uL (0.0-0.8); MONO % 2.3 % (2.0-8.0); PLATELET COUNT, AUTOMATED 279 10^3/uL (150-450); WHITE BLOOD COUNT 9.2 10^3/uL (4.0-10.0)
[2021-05-02 20:02] LABS: ALBUMIN 3.8 GM/DL (3.2-5.2); ALT/SGPT 25 U/L (12-78); BILIRUBIN,TOTAL 0.5 MG/DL (0.2-1.0); BLOOD UREA NITROGEN 15 MG/DL (7-18); CALCIUM LEVEL 8.7 MG/DL (8.5-10.1); CARBON DIOXIDE LEVEL 26 MEQ/L (21-32); CHLORIDE LEVEL 110 MEQ/L (98-107); CREATININE FOR GFR 0.98 MG/DL (0.55-1.30); GLOMERULAR FILTRATION RATE > 60.0 (>60); GLUCOSE, FASTING 115 MG/DL (70-100); POTASSIUM SERUM 3.9 MEQ/L (3.5-5.1); SODIUM LEVEL 142 MEQ/L (136-145); TOTAL PROTEIN 6.8 GM/DL (6.4-8.2)
== END ==
LOC: M WUC 15:14
PROVIDERS: ATTEND Internal Medicine
DX: R76.8 Other specified abnormal immunological findings in serum (principal)

== ENCOUNTER → 2022-08-15 | Outpatient (CLI) | payer OTHER ==
[~2022-08-15] MED LIST changes: +ALBU2.5V10 INH; -ALBU83IN INH; +TIZA10TA PO; -TIZA4TAB4 PO
[2022-08-15 14:16] LABS: HEPATITIS B SURFACE ANTIGEN NEGATIVE (NEGATIVE)
== END ==
LOC: M WUC 10:50
PROVIDERS: ATTEND Internal Medicine Rheumatology
DX: M25.50 Pain in unspecified joint (principal); M13.0 Polyarthritis, unspecified; R79.89 Other specified abnormal findings of blood chemistry; I73.00 Raynaud's syndrome without gangrene; M54.9 Dorsalgia, unspecified; M06.09 Rheumatoid arthritis without rheumatoid factor, multiple sites; Z79.899 Other long term (current) drug therapy

== ENCOUNTER 2022-10-19 20:28 | Emergency (ER) | payer OTHER ==
[~2022-10-19] VITALS: Ht 154.9 cm; Wt 77.7 kg
[2022-10-19 21:42] LABS: HEMATOCRIT 41.1 % (36.0-47.0); MEAN CORPUSCULAR HEMOGLOBIN 29.9 pg (27.0-33.0); MEAN CORPUSCULAR HGB CONC 34.1 g/dl (32.0-36.5); MEAN CORPUSCULAR VOLUME 87.6 fl (80.0-96.0); PLATELET COUNT, AUTOMATED 268 10^3/uL (150-450); RED BLOOD COUNT 4.69 10^6/uL (4.00-5.40); WHITE BLOOD COUNT 9.7 10^3/uL (4.0-10.0)
[2022-10-19 22:11] LABS: BLOOD UREA NITROGEN 13 MG/DL (9-23); CALCIUM LEVEL 9.4 MG/DL (8.5-10.1); CARBON DIOXIDE LEVEL 28 MMOL/L (20-31); CHLORIDE LEVEL 107 MMOL/L (98-107); CREATININE FOR GFR 0.76 MG/DL (0.55-1.30); GLOMERULAR FILTRATION RATE > 60.0 (>58); GLUCOSE, FASTING 90 MG/DL (60-100); POTASSIUM SERUM 3.4 MMOL/L (3.5-5.1); SODIUM LEVEL 142 MMOL/L (136-145)
[2022-10-19 22:14] LABS: THYROID STIMULATING HORMONE 2.802 uIU/ML (0.55-4.78)
[2022-10-19 22:15] VITALS: BP 136/99
[2022-10-19] MEDS ORDERED: XANA0.25 PO (22:59)
[2022-10-19] MEDS ORDERED: ALPRAZolam 0.25 MG TAB PO ONE (23:05)
== END 2022-10-19 23:34 | disposition home or self-care (01) ==
LOC: M ED 20:28
DX: I49.3 Ventricular premature depolarization (principal); F41.9 Anxiety disorder, unspecified; M34.9 Systemic sclerosis, unspecified; T38.0X5A Adverse effect of glucocorticoids and synthetic analogues, initial encounter; R06.02 Shortness of breath; F32.A Depression, unspecified; F43.10 Post-traumatic stress disorder, unspecified; F90.9 Attention-deficit hyperactivity disorder, unspecified type; K58.9 Irritable bowel syndrome, unspecified; K21.9 Gastro-esophageal reflux disease without esophagitis; G47.33 Obstructive sleep apnea (adult) (pediatric); D50.9 Iron deficiency anemia, unspecified; Z98.84 Bariatric surgery status; Z88.8 Allergy status to other drugs, medicaments and biological substances; Z88.5 Allergy status to narcotic agent; Z91.048 Other nonmedicinal substance allergy status; Z91.041 Radiographic dye allergy status; Z79.899 Other long term (current) drug therapy; Z79.51 Long term (current) use of inhaled steroids

== ENCOUNTER → 2023-04-01 | Outpatient (CLI) | payer OTHER ==
[~2023-04-01] MED LIST changes: +XANA0.25 PO
[2023-04-01 10:35] LABS: HEMATOCRIT 37.9 % (36.0-47.0); HEMOGLOBIN 13.2 g/dl (12.0-15.5); MEAN CORPUSCULAR HEMOGLOBIN 30.8 pg (27.0-33.0); MEAN CORPUSCULAR HGB CONC 34.8 g/dl (32.0-36.5); MEAN CORPUSCULAR VOLUME 88.3 fl (80.0-96.0); PLATELET COUNT, AUTOMATED 284 10^3/uL (150-450); RED BLOOD COUNT 4.29 10^6/uL (4.00-5.40); WHITE BLOOD COUNT 7.6 10^3/uL (4.0-10.0)
[2023-04-01 11:04] LABS: ALBUMIN 3.6 G/DL (3.2-5.2); ALKALINE PHOSPHATASE 72 U/L (46-116); ALT/SGPT 10 U/L (7.0-40); AST/SGOT 16 U/L (<34); BLOOD UREA NITROGEN 8 MG/DL (9-23); CALCIUM LEVEL 8.8 MG/DL (8.5-10.1); CARBON DIOXIDE LEVEL 29 MMOL/L (20-31); CHLORIDE LEVEL 105 MMOL/L (98-107); CHOLESTEROL LEVEL 224 MG/DL (<200); CHOLESTEROL RISK RATIO 2.97 (<5); CREATININE FOR GFR 0.74 MG/DL (0.55-1.30); GLOMERULAR FILTRATION RATE > 60.0 (>58); GLUCOSE, FASTING 98 MG/DL (60-100); HDL CHOLESTEROL 75.4 MG/DL (>40); LDL CHOLESTEROL 131.2 MG/DL (<100); NON-HDL-C 148.6 MG/DL; SODIUM LEVEL 140 MMOL/L (136-145); TOTAL PROTEIN 6.5 G/DL (5.7-8.2); TRIGLYCERIDES LEVEL 87 MG/DL (<150)
[2023-04-01 11:06] LABS: FREE T4 0.91 NG/DL (0.89-1.76); THYROID STIMULATING HORMONE 1.688 uIU/ML (0.55-4.78)
== END ==
LOC: M LAB 10:07
PROVIDERS: ATTEND Physician Assistant Medical
DX: R00.2 Palpitations (principal); R63.4 Abnormal weight loss

== ENCOUNTER → 2023-09-26 | Outpatient (CLI) | payer OTHER | LOC: M WUC 11:13 | PROVIDERS: ATTEND Physician Assistant Medical | DX: M50.30 Other cervical disc degeneration, unspecified cervical region (principal); M54.6 Pain in thoracic spine; M54.9 Dorsalgia, unspecified ==

== ENCOUNTER 2024-02-20 12:26 | Emergency (ER) | payer OTHER ==
[~2024-02-20] VITALS: Ht 162.6 cm; Wt 78.8 kg
[~2024-02-20 12:26] MED LIST changes: +ONDA-282 PO; -ONDA4TAB6 PO
[2024-02-20 13:03] LABS: BASO % 0.4 % (0.0-1.0); EOS # 0.1 10^3/uL (0.0-0.5); EOS % 1.6 % (0.0-3.0); HEMATOCRIT 35.6 % (36.0-47.0); HEMOGLOBIN 12.3 g/dl (12.0-15.5); LYMPH # 2.3 10^3/uL (1.5-5.0); LYMPH % 33.7 % (24.0-44.0); MEAN CORPUSCULAR HEMOGLOBIN 30.6 pg (27.0-33.0); MEAN CORPUSCULAR HGB CONC 34.6 g/dl (32.0-36.5); MEAN CORPUSCULAR VOLUME 88.6 fl (80.0-96.0); MONO # 0.5 10^3/uL (0.0-0.8); MONO % 7.5 % (2.0-8.0); NEUTROPHILS # 3.9 10^3/uL (1.5-8.5); NEUTROPHILS % 56.7 % (36.0-66.0); PLATELET COUNT, AUTOMATED 290 10^3/uL (150-450); RED BLOOD COUNT 4.02 10^6/uL (4.00-5.40); WHITE BLOOD COUNT 6.8 10^3/uL (4.0-10.0)
[2024-02-20 13:25] LABS: CPK CREATINE PHOSPHOKINASE 229 U/L (34-145); MB/CK RELATIVE INDEX 0.43 (< OR =4)
[2024-02-20 13:26] LABS: BLOOD UREA NITROGEN 10 MG/DL (9-23); CALCIUM LEVEL 8.8 MG/DL (8.5-10.1); CARBON DIOXIDE LEVEL 26 MMOL/L (20-31); CHLORIDE LEVEL 109 MMOL/L (98-107); CPK CREATINE PHOSPHOKINASE 225 U/L (34-145); CREATININE FOR GFR 0.74 MG/DL (0.55-1.30); GLOMERULAR FILTRATION RATE > 60.0 (>58); GLUCOSE, FASTING 95 MG/DL (60-100); MB/CK RELATIVE INDEX 0.44 (< OR =4); POTASSIUM SERUM 3.5 MMOL/L (3.5-5.1); SODIUM LEVEL 140 MMOL/L (136-145)
[2024-02-20] MEDS ORDERED: CONC54TA4 PO (14:48)
[2024-02-20] MEDS ORDERED: METH-1022 (14:48)
[2024-02-20] MEDS ORDERED: UPAD15TA (14:48)
[2024-02-20] MEDS ORDERED: ZOLP12.535 (14:48)
[2024-02-20] MEDS: diazePAM 5MG TABLET PO ONE (14:49)
[2024-02-20 15:36] LABS: RSV AMPLIFICATION NEGATIVE (NEGATIVE)
[2024-02-20] MEDS: KETOROLAC 60MG 2ML VIAL IM ONE (16:30)
[2024-02-20 17:05] VITALS: BP 155/91; TEMP 97.4; O2SAT 100
== END 2024-02-20 17:21 | disposition home or self-care (01) ==
LOC: M ED 12:26
DX: M62.838 Other muscle spasm (principal); F41.9 Anxiety disorder, unspecified; J45.909 Unspecified asthma, uncomplicated; F32.A Depression, unspecified; F43.10 Post-traumatic stress disorder, unspecified; Z91.09 Other allergy status, other than to drugs and biological substances; Z88.8 Allergy status to other drugs, medicaments and biological substances; Z91.041 Radiographic dye allergy status; Z88.5 Allergy status to narcotic agent; Z79.899 Other long term (current) drug therapy
CPT/HCPCS: 71045; 80048; 82550; 82553; 84484; 85025; 87631; 93005; 96372; 99284; J1885

== ENCOUNTER → 2024-04-21 | Outpatient (CLI) | payer OTHER ==
[~2024-04-21] MED LIST changes: +CONC54TA4 PO; +METH-1022; +UPAD15TA; +ZOLP12.535
[2024-04-21 18:33] LABS: WHITE BLOOD COUNT 5.4 10^3/uL (4.0-10.0)
[2024-04-21 18:42] LABS: ALBUMIN 3.6 G/DL (3.2-5.2); ALKALINE PHOSPHATASE 64 U/L (35-104); ALT/SGPT 13 U/L (7.0-40); AST/SGOT 14 U/L (<34); BILIRUBIN,TOTAL 0.9 MG/DL (0.3-1.2); BLOOD UREA NITROGEN 13 MG/DL (9-23); CALCIUM LEVEL 8.7 MG/DL (8.5-10.1); CARBON DIOXIDE LEVEL 27 MMOL/L (20-31); CHLORIDE LEVEL 109 MMOL/L (98-107); CREATININE FOR GFR 0.65 MG/DL (0.55-1.30); GLOMERULAR FILTRATION RATE > 60.0 (>58); GLUCOSE, FASTING 92 MG/DL (60-100); GLUCOSE,RANDOM 92 MG/DL (LESS THAN 200); POTASSIUM SERUM 3.7 MMOL/L (3.5-5.1); SODIUM LEVEL 141 MMOL/L (136-145); THYROID STIMULATING HORMONE 1.942 uIU/ML (0.55-4.78); THYROXINE (T4) 7.5 UG/DL (4.5-10.9); TOTAL PROTEIN 6.7 G/DL (5.7-8.2)
[2024-04-21 18:43] LABS: FREE THYROXINE INDEX 2.2 % (1.3-4.8); T UPTAKE 29.7 % (22.5-37.0); TOTAL 25(OH) VITAMIN D 21.3 NG/ML (20.0-100.0)
[2024-04-21 18:44] LABS: FOLATE 8.8 NG/ML (>5.4); PROGESTERONE < 0.21 NG/ML
[2024-04-21 18:45] LABS: VITAMIN B12 LEVEL 537 PG/ML (211-911)
[2024-04-21 18:46] LABS: CORTISOL PM 8.5 UG/DL (3.1-16.7)
[2024-04-21 18:57] LABS: HEMOGLOBIN A1c 5.1 % (4.0-6.0)
[2024-04-22 10:09] LABS: BASO # 0.1 10^3/uL (0.0-0.2); EOS # 0.1 10^3/uL (0.0-0.5); EOS % 2.4 % (0.0-3.0); HEMATOCRIT 37.8 % (36.0-47.0); HEMOGLOBIN 12.5 g/dl (12.0-15.5); LYMPH # 2.6 10^3/uL (1.5-5.0); LYMPH % 45.2 % (24.0-44.0); MEAN CORPUSCULAR HEMOGLOBIN 30.9 pg (27.0-33.0); MEAN CORPUSCULAR HGB CONC 33.1 g/dl (32.0-36.5); MEAN CORPUSCULAR VOLUME 93.3 fl (80.0-96.0); MONO # 0.4 10^3/uL (0.0-0.8); MONO % 6.2 % (2.0-8.0); NEUTROPHILS # 2.6 10^3/uL (1.5-8.5); PLATELET COUNT, AUTOMATED 297 10^3/uL (150-450); RED BLOOD COUNT 4.05 10^6/uL (4.00-5.40)
[2024-04-23 13:46] LABS: CYTOMEGALOVIRUS IgM ANTIBODY < 30.00 AU/mL (<30.00); HSV 1 IGG TYPE SPECIFIC < 0.90 index (<0.90); HSV 2 IGG TYPE SPECIFIC < 0.90 index (<0.90)
[2024-04-26 14:28] LABS: ACETONE, URINE None Detected; ETHANOL, URINE None Detected; ISOPROPANOL, URINE None Detected; METHANOL, URINE None Detected
[2024-04-26 16:02] LABS: TESTOSTERONE FREE (DIRECT) 0.9 pg/mL (0.1-6.4); TESTOSTERONE TOTAL FOR T&D 18 ng/dL (2-45)
== END ==
LOC: M WUC 12:16
PROVIDERS: ATTEND Nurse Practitioner Psychiatric/Mental Health
DX: F32.A Depression, unspecified (principal); F90.9 Attention-deficit hyperactivity disorder, unspecified type; F41.1 Generalized anxiety disorder; F60.9 Personality disorder, unspecified

== ENCOUNTER → 2025-06-04 | Outpatient (REF) | payer OTHER ==
[~2025-06-04] MED LIST changes: +LIDO1ADH93 TOP; -LIDO5DIS41 TOP; -ZOLP5TAB; +ZOLP5TAB9
== END ==
LOC: M LAB REF 16:47
PROVIDERS: ATTEND Physician Assistant Medical
DX: G43.009 Migraine without aura, not intractable, without status migrainosus (principal)